=== PATIENT | female | born 1980 | race Caucasian/White ===

== ENCOUNTER 2017-05-28 13:49 | Emergency (ER) | payer BC ==
[~2017-05-28] VITALS: Ht 167.6 cm; Wt 129.7 kg
--- OUTSIDE RECORDS SUMMARY | 2017-05-28 13:51 | XMS REPORT | Summary of Care ---
Author Author [facility] Address [address] [place] [address] Phone Unavailable Care Team Providers Care Shoe Salesman Name Role Phone VENANCIO JURADO M.D. Unavailable Unavailable Functional Status Name Dates Details Functional status health issues are not documented Status: Name Dates Details Cognitive status health issues are not documented Status: Problems Name Dates Details Left shoulder pain (719.41, M25.512) Status: Active Medications Name Dates Details MethylPREDNISolone 4 MG Oral Tablet USE DIRECTED. Quantity: 21 ADRIEN Dasilva, VENANCIO * Start : 01-Feb-2017 Active Cyclobenzaprine HCl - 10 MG Oral Tablet TAKE 1 TABLET 3 TIMES DAILY NEEDED. * Quantity: 30 Refills: 0 ADRIEN Dasilva, VENANCIO * Start : 01-Feb-2017 Active Allergies and Adverse Reactions Name Dates Details No Known Drug Allergies (Allergy) Status: Active Procedures Procedure Dates Details Procedures not documented Immunization Name Dates Details Immunizations not documented Social History Name Dates Details Unknown if ever smoked Vital Signs Date Test Result Details No Known Vitals to report Results Date Description Value Details Results not documented Plan of Care Name Dates Details Planned Observations Planned Goals not documented Planned Encounters Appointment; VENANCIO JURADO M.D. On: 07-Apr-2017 10:30 Instructions Name Dates Details Instructions not documented Encounters Appointment; RUSSELL CASTANEDA M.D. Encounter Diagnosis: Problem not documented On: 16-Mar-2016 13:00 Appointment; RUSSELL CASTANEDA M.D. Encounter Diagnosis: Problem not documented On: 21-Sep-2016 15:15 Appointment; NICK HORAN RD Encounter Diagnosis: Problem not documented On: 03-Oct-2016 9:30 Appointment; VENANCIO JURADO M.D. Encounter Diagnosis: Problem not documented On: 01-Feb-2017 8:45 Appointment; VENANCIO JURADO M.D. Encounter Diagnosis: Problem not documented On: 10-Mar-2017 9:30
--- OUTSIDE RECORDS SUMMARY | 2017-05-28 13:51 | XMS REPORT ---
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
== END 2017-05-28 14:38 | disposition home or self-care (01) ==
LOC: ER 13:49
DX: S61.211A Laceration without foreign body of left index finger without damage to nail, initial encounter (principal); W26.0XXA Contact with knife, initial encounter; Y93.G3 Activity, cooking and baking; Y92.000 Kitchen of unspecified non-institutional (private) residence as the place of occurrence of the external cause
CPT/HCPCS: 99282

== ENCOUNTER 2017-10-05 00:46 | Inpatient (IN) | payer BC ==
[~2017-10-05] VITALS: Ht 167.6 cm; Wt 152.9 kg
[2017-10-05] VITALS (23 sets, daily range): BP systolic 109–138; BP diastolic 62–89
[2017-10-05] MEDS ORDERED: SODIUM CHLORIDE 0.9% 1000ML 1,000 ML IV STA ×2 (01:15→05:38)
[2017-10-05] MEDS ORDERED: ONDANSETRON HCL INJ 2 MG/ML VIAL IV STA (01:15)
[2017-10-05] MEDS ORDERED: MORPHINE SULFATE 2 MG/ML SYR IV STA (01:15)
[2017-10-05] MEDS ORDERED: PANTOPRAZOLE 40 MG 10ML VIAL IV STA (01:15)
[2017-10-05] MEDS ORDERED: DIATRIZOATE MEGL/DIATRIZOA SOD 30 ML BTL PO ONE (01:31)
[2017-10-05 01:59] LABS: BASOPHILS % 0.2 % (0.0-1.0); HEMATOCRIT 37.5 % (34.2-44.1); HEMOGLOBIN 11.9 g/dL (12.0-16.0); LYMPHOCYTES # (AUTO) 1.2 (1.0-3.2); LYMPHOCYTES % 4.6 % (18.0-39.1); MEAN CORPUSCULAR HEMOGLOBIN 25.5 pg (28-32); MEAN CORPUSCULAR HGB CONC 31.7 g/dL (31-35); MEAN CORPUSCULAR VOLUME 80.5 fL (81-99); MONOCYTES # (AUTO) 1.4 (0.2-0.8); MONOCYTES % 5.5 % (4.4-11.3); NEUTROPHILS # (AUTO) 22.2 (2.1-6.9); NEUTROPHILS % 89.1 % (38.7-80.0); PLATELET COUNT 391 x10e3/uL (140-360); RED BLOOD COUNT 4.66 x10e6/uL (3.6-5.1); RED CELL DISTRIBUTION WIDTH 14.4 % (11.7-14.4)
[2017-10-05 02:05] LABS: CLARITY,URINE HAZY (CLEAR); COLOR,URINE GREEN (YELLOW); LEUKOCYTE ESTERASE ,URINE NEGATIVE (NEGATIVE); NITRITE,URINE NEGATIVE (NEGATIVE); PROTEIN,URINE DIPSTICK 2+ (NEGATIVE)
[2017-10-05 02:06] LABS: BILIRUBIN,URINE 2+ (NEGATIVE); KETONES,URINE NEGATIVE (NEGATIVE); URINE UROBILINOGEN 0.2 mg/dL (0.2 - 1)
[2017-10-05 02:08] LABS: INR 1.44; PROTHROMBIN TIME 16.5 seconds (11.9-14.5)
[2017-10-05 02:09] LABS: PARTIAL THROMBOPLASTIN TIME 27.1 seconds (23.8-35.5)
[2017-10-05 02:15] LABS: PREGNANCY TEST, URINE NEGATIVE (NEGATIVE)
[2017-10-05 02:16] LABS: ALANINE AMINOTRANSFERASE 50 IU/L (0-55); ALBUMIN 3.4 g/dL (3.5-5.0); ALBUMIN/GLOBULIN RATIO 0.8 (0.8-2.0); ALKALINE PHOSPHATASE 87 IU/L (40-150); AMYLASE 329 U/L (25-125); ANION GAP 16.3 mmol/L (8-16); BLOOD UREA NITROGEN 11 mg/dL (7-26); BUN/CREATININE RATIO 14 (6-25); CALCIUM 8.5 mg/dL (8.4-10.2); CARBON DIOXIDE 23 mmol/L (22-29); CHLORIDE 105 mmol/L (98-107); CREATINE KINASE 89 IU/L (29-168); CREATININE, SERUM 0.78 mg/dL (0.57-1.11); EST GLOMERULAR FILTRATION RATE > 60 ML/MIN (60-); GLUCOSE 153 mg/dL (74-118); LIPASE 130 U/L (8-78); MAGNESIUM 1.8 MG/DL (1.3-2.1); POTASSIUM 3.3 mmol/L (3.5-5.1); SODIUM 141 mmol/L (136-145)
[2017-10-05 02:26] LABS: BACTERIA,URINE MODERATE /HPF; EPITHELIAL CELLS,URINE MODERATE /LPF; RBC,URINE 0-5 /HPF (0-5)
[2017-10-05 02:27] LABS: RENAL EPITHELIAL CELLS,URINE FEW; TRANSITIONAL EPI CELLS,URINE FEW; WBC,URINE (MAN) 0-5 /HPF (0-5)
--- NOTE | 2017-10-05 02:46 | Diagnostic Imaging Report ---
ABDOMEN-1VIEW (KUB) Clinical history: \S\TO EVALUATE CONTRAST USED IN [place] Technique: AP view abdomen Comparison: None Findings: Limited single portable view with hemidiaphragms, left lateral abdomen and inferior pelvis are excluded from view. A surgical drain projects over the expected GE junction. High density contrast material is seen predominantly within the colon. Additional contrast material in the left upper quadrant, unclear where this is intraluminal. Correlate with subsequent CT Impression: High density contrast material seen primarily in the colon. Additional contrast material in the left upper quadrant, unclear where this is intraluminal. Correlate with subsequent CT Signed by: Dr Alysia Rasheed MD on 10/05/2017 2:43 AM
--- NOTE | 2017-10-05 02:49 | Diagnostic Imaging Report ---
CHEST SINGLE (PORTABLE), 10/05/2017 1:15 AM Technique: CHEST SINGLE (PORTABLE) Comparison: None available. Clinical history: Abdominal pain Findings: Limited by portable technique and soft tissue attenuation. Mild left basilar opacity. Otherwise unremarkable portable appearance of the heart, mediastinum, lungs and pleural spaces. Impression: Mild left basilar opacity which may be postoperative hematoma/atelectasis related to reported hernia repair. Recommend follow-up upright PA and lateral. Signed by: Dr Alysia Rasheed MD on 10/05/2017 2:46 AM
[2017-10-05] MEDS ORDERED: PIPERACILLIN/TAZO 4.5 GM 100 ML IV STA (02:51)
[2017-10-05] MEDS ORDERED: PANTOPRAZOLE SO40 MG PO (03:22)
[2017-10-05] MEDS ORDERED: LEVOTHYROXINE100 MCG PO (03:22)
[2017-10-05 03:41] LABS: BAND NEUTROPHILS % (MANUAL) 3 %; LYMPHOCYTES % (MANUAL) 4 % (19-48); MONOCYTES % (MANUAL) 4 % (3.4-9.0); NEUTROPHILS % (MANUAL) 89 % (40-74)
[2017-10-05] MEDS ORDERED: SODIUM CHLORIDE 0.9% 50ML 50 ML ONE (03:41)
[2017-10-05] MEDS ORDERED: IOPAMIDOL 370 MG/ML 200 ML INFUS..BTL INJ ONE (03:41)
[2017-10-05 03:42] LABS: PLATELET ESTIMATE SLIGHTLY INCREASED; PLATELET MORPHOLOGY COMMENT NORMAL; RBC MORPHOLOGY COMMENT NORMAL
[2017-10-05] MEDS: METRONIDAZOLE 500MG/NS 100ML 100 ML IV SCH ×4 (04:15→17:58)
[2017-10-05] MEDS ORDERED: KCL 20MEQ/.9 SOD CHL 1,000 ML IV ONE (04:15)
[2017-10-05] MEDS ORDERED: MORPHINE SULFATE 2 MG/ML SYR IV PRN ×2 (04:45→13:45)
[2017-10-05] MEDS: ONDANSETRON HCL INJ 2 MG/ML VIAL IV PRN ×3 (05:08→17:29)
--- NOTE | 2017-10-05 05:23 | Diagnostic Imaging Report ---
EXAM: CT ABDOMEN/PELVIS W DATE: 10/05/2017 1:15 AM INDICATION: \S\SURGERY IN [place] 24HRS AGO, ABD PAIN, ? PERFORATED PER PT \S\[id number] \S\[id number] COMPARISON: None TECHNIQUE: The abdomen and pelvis were scanned using a multidetector helical scanner. Coronal and sagittal reformations were obtained. Routine protocol performed. Diluted Gastrografin was administered orally. IV Contrast: 100 ml Isovue 300/370 FINDINGS: Study is mildly degraded by photon starvation related to body habitus. LOWER THORAX: Trace left pleural effusion and basilar atelectasis. LIVER/BILIARY: No masses. No ductal dilatation. GALLBLADDER: Surgically absent SPLEEN: Unremarkable PANCREAS: Unremarkable ADRENALS: No nodules KIDNEYS: Symmetric perfusion. No enhancing masses. No hydronephrosis. GI TRACT: Postsurgical changes status post partial gastric resection and gastrojejunostomy. Residual hiatal hernia or distended gastric pouch within the lower thorax. There is extravasation of administered oral contrast through the gastrojejunostomy surgical anastomotic site (image 30. High density contrast in the colon was previously administered as seen on recent radiograph before the CT. VESSELS: Unremarkable PERITONEUM/RETROPERITONEUM: Mild free air, fluid and extravasated oral contrast. More focal fluid is seen along the GJ anastomosis on image 26, but no wall enhancement. The right lower quadrant surgical drainage catheter courses along the anastomotic leak and terminates in the medial left upper quadrant. LYMPH NODES: No lymphadenopathy REPRODUCTIVE ORGANS/BLADDER: Unremarkable SOFT TISSUES: Small ventral hernia appears to contain a loop of nondistended bowel versus fluid. Soft tissue stranding in BONES: No suspicious bone lesions. IMPRESSION: Postsurgical changes status post recent partial gastric resection with gastrojejunostomy. Anastomotic leak is present at the gastrojejunostomy site with extravasated oral contrast. No drainable collection. Discussed with Physician: SHASHI NOVAK MD at about 5:00 AM on 10/05/2017. Signed by: Dr Alysia Rasheed MD on 10/05/2017 5:20 AM
--- NOTE | 2017-10-05 05:25 | Diagnostic Imaging Report ---
CHEST 2 VIEWS, Technique: CHEST 2 VIEWS Comparison: 10/05/2017 Clinical history: Left basilar opacity seen on portable radiograph DISCUSSION: Normal cardiomediastinal silhouette. Residual hiatal hernia or dilated gastric pouch is noted. Small left effusion with left basilar linear opacity. IMPRESSION: Small left effusion with left basilar atelectasis. Signed by: Dr Alysia Rasheed MD on 10/05/2017 5:22 AM
[2017-10-05] MEDS: VANCOMYCIN 1GM/NS 250 ML 250 ML IV SCH ×3 (05:47→20:37)
[2017-10-05 06:01] LABS: FIBRINOGEN MAIN LAB 616 mg/dL (204-462)
[2017-10-05] MEDS ORDERED: BUPIVACAINE 0.25%/EPI 30ML SDV INJ ONE (06:36)
[2017-10-05] MEDS ORDERED: HEPARIN SOD/SOD CHLORIDE 1,000 ML ONE (06:58)
[2017-10-05 07:38] LABS: CREATINE KINASE 117 IU/L (29-168)
[2017-10-05] MEDS: PIPER-TAZ 3.375 GM 50 ML IV SCH ×3 (09:00→17:48)
[2017-10-05] MEDS: PANTOPRAZOLE 40 MG 10ML VIAL IV SCH ×2 (09:00→17:48)
--- NOTE | 2017-10-05 09:49 | Consultation ---
DATE OF CONSULTATION: October 05, 2017 CHIEF COMPLAINT: Abdominal pain. HISTORY OF PRESENT ILLNESS: This patient is a 36-year-old female who is 2 days status post revision of gastric bypass surgery in [place] complaining of abdominal pain, subjective fever with nausea. The patient was diagnosed as having an anastomotic leak postoperatively in [place], but decided to come home to the [facility]. PAST MEDICAL HISTORY: Significant for morbid obesity, GERD. SURGICAL HISTORY: Positive for sleeve gastrectomy 5 years ago and recent revision of gastric bypass surgery. ALLERGIES: THE PATIENT IS ALLERGIC TO LATEX. SOCIAL HISTORY: No history of smoking or alcohol abuse. REVIEW OF SYSTEMS: No chest pain or shortness of breath. PHYSICAL EXAMINATION VITAL SIGNS: Stable. The patient is tachycardic at 105, blood pressure 110/70. GENERAL: She is awake, alert and in mild to moderate discomfort. HEENT: Sclerae are nonicteric. NECK: Supple. LUNGS: Clear. HEART: Regular rate and rhythm. ABDOMEN: Soft without any tenderness or rebound in the epigastric region. KANIKA drains in the right flank is bilious. EXTREMITIES: Without cyanosis or edema. The patient's white cell count is 25,000, hemoglobin 12. INR 1.4. CT scan of the abdomen shows an anastomotic leak. ASSESSMENT: Anastomotic leak, post revision of gastric bypass surgery. PLAN: Diagnostic laparoscopy and possible open repair of leaks. Possible gastrostomy and bowel resection. Job#: [id number] CAT
[2017-10-05] MEDS ORDERED: ONDANSETRON HCL INJ 2 MG/ML VIAL ONE (11:20)
[2017-10-05] MEDS ORDERED: PROMETHAZINE HCL (IM) 25 MG/ML VIAL ONE (11:36)
[2017-10-05] MEDS: LACTATED RINGER'S 1,000 ML IV SCH ×2 (14:05→17:30)
[2017-10-05] MEDS: LEVOTHYROXINE SODIUM 100 MCG/VIAL IV SCH (14:37)
[2017-10-05] MEDS ORDERED: CHLORASEPTIC SPRAY 177 ML BTL MM PRN (15:45)
[2017-10-05 17:11] LABS: BASOPHILS # (AUTO) 0.1 (0.0-0.1); BASOPHILS % 0.3 % (0.0-1.0); HEMATOCRIT 31.4 % (34.2-44.1); LYMPHOCYTES % 4.6 % (18.0-39.1); MEAN CORPUSCULAR HEMOGLOBIN 25.8 pg (28-32); MEAN CORPUSCULAR HGB CONC 31.8 g/dL (31-35); MEAN CORPUSCULAR VOLUME 80.9 fL (81-99); MONOCYTES # (AUTO) 0.8 (0.2-0.8); MONOCYTES % 3.9 % (4.4-11.3); NEUTROPHILS # (AUTO) 19.3 (2.1-6.9); NEUTROPHILS % 90.6 % (38.7-80.0); PLATELET COUNT 306 x10e3/uL (140-360); RED BLOOD COUNT 3.88 x10e6/uL (3.6-5.1); RED CELL DISTRIBUTION WIDTH 14.6 % (11.7-14.4)
[2017-10-05 17:32] LABS: ALANINE AMINOTRANSFERASE 33 IU/L (0-55); ALBUMIN 2.1 g/dL (3.5-5.0); ALBUMIN/GLOBULIN RATIO 0.8 (0.8-2.0); ALKALINE PHOSPHATASE 58 IU/L (40-150); ANION GAP 12.6 mmol/L (8-16); BLOOD UREA NITROGEN 8 mg/dL (7-26); BUN/CREATININE RATIO 14 (6-25); CARBON DIOXIDE 19 mmol/L (22-29); CHLORIDE 111 mmol/L (98-107); CREATINE KINASE 52 IU/L (29-168); CREATININE, SERUM 0.57 mg/dL (0.57-1.11); EST GLOMERULAR FILTRATION RATE > 60 ML/MIN (60-); GLUCOSE 139 mg/dL (74-118); POTASSIUM 3.6 mmol/L (3.5-5.1); SODIUM 139 mmol/L (136-145)
--- NOTE | 2017-10-05 17:41 | History and Physical ---
CHIEF COMPLAINT: Abdominal pain. HISTORY OF PRESENT ILLNESS: Ms. Ayoub is a 36-year-old female. She had a gastric bypass surgery in [place] 2 days ago, and post surgery she started having anastomotic leakage, abdominal pain so she was told by the surgeon over there. She drove here back [place] get the [place] Patient works as an RN at [employer]. She was seen in the emergency room. Her white cell count was 25,[address] Cruz was consulted. Patient was taken to the OR and the anastomotic leak was resutured. She is doing well. She is denying any complaints of nausea, vomiting, chest pain now. PHYSICAL EXAMINATION VITAL SIGNS: Temperature 98, pulse of 86, blood pressure 115/66, respiratory rate of 18, O2 sat 98%. CHEST: Clear to auscultation bilaterally. No wheezing. HEART: S1/S2 audible. ABDOMEN: Patient has 2 drains and the incision is dressed. EXTREMITIES: No clubbing, cyanosis or edema. NEUROLOGICALLY: Awake and alert. No focal neurologic deficit. REVIEW OF SYSTEMS: Negative except as in HPI. FAMILY AND SOCIAL HISTORY: She does not smoke, does not drink. Lives with her . She works as an RN. LABS: White count of 24,000, hemoglobin 11.9, platelets 391. Chemistry: Sodium 141, potassium 3.3, anion gap of 16.3, bicarb of 23. Troponin has been negative. Abdominal pelvis CT was done which showed postsurgical changes. Anastomotic leak is present at gastrojejunostomy site. ASSESSMENT: Ms. Ayoub is a 36-year-old female. She presented with a surgical complication of anastomotic leak from the gastrojejunostomy that was done for gastric bypass surgery. PLAN 1. A surgery consult has been called. Dr. Cruz has already operated on the patient. Currently patient is doing well. Abdominal pain is much better. Patient will be continued on IV hydration. 2. IV Zofran and Flagyl have been started. 3. Will follow the patient closely in the ICU. Job#: [id number] EV
[2017-10-05] MEDS ORDERED: ROCURONIUM BROMIDE 10 MG/ML 5ML VIAL ONE (17:49)
[2017-10-05] MEDS ORDERED: DESFLURANE 240 ML BTL INH ONE (17:49)
[2017-10-05] MEDS ORDERED: LIDOCAINE HCL 2% LOCAL INJ 5 ML SDV VIAL INJ ONE (17:49)
[2017-10-05] MEDS ORDERED: PROPOFOL IV EMULSION 10 MG/ML 20 ML VIAL ONE (17:49)
[2017-10-05] MEDS ORDERED: DEXAMETHASONE SOD PHOS INJ 4 MG/ML VIAL ONE (17:49)
[2017-10-05] MEDS ORDERED: KETAMINE HCL INJ 50 MG/ML 10 ML VIAL ONE (18:00)
[2017-10-05] MEDS ORDERED: FENTANYL CITRATE/PF 100MCG/2 ML INJ ONE (18:00)
[2017-10-05] MEDS ORDERED: MIDAZOLAM HCL 2 MG/2 ML VIAL ONE (18:00)
--- NOTE | 2017-10-05 18:04 | Operative Report ---
DATE OF PROCEDURE: October 05, 2017 PREOPERATIVE DIAGNOSIS: Anastomotic leak. POSTOPERATIVE DIAGNOSIS: Anastomotic leak. OPERATIVE PROCEDURES: 1. Exploratory laparotomy. 2. Repair of breakdown of gastrojejunostomy anastomosis. ANESTHESIA: General, Dr. Scott. INDICATIONS: A 36-year-old female who is 2 days status post revision of bariatric surgery in [place] with a known anastomotic leak post procedure in [place]. Patient, however, decided to come home and presented to the emergency room with severe abdominal pain, and CT scan showed anastomotic leakage. A KANIKA drain placed during the initial surgery also showed bilious material. DESCRIPTION OF PROCEDURE: Patient was brought to the OR, intubated. Abdomen was prepped with alcohol and draped in sterile fashion. A diagnostic laparoscopy was initiated first with a left subcostal margin port site inserted and insufflation then begun. Laparoscopic examination revealed bilious fluid in the peritoneal cavity. The adhesions were taken down with blunt dissection, and the gastrojejunostomy anastomosis was noted to be completely disrupted with leakage of bilious material. At this point, the upper midline incision was made from xiphoid towards the umbilicus, going through the midline linea alba fascia. The peritoneal cavity was entered and the anatomy delineated with blunt and sharp dissection. The self-retaining retractors were inserted, exposing the upper abdominal operative field. The anastomotic leakage site was again exposed, and the anterior half of the loop gastrojejunostomy was noted to be disrupted with a third of the circumference of anastomosis posteriorly intact. At this point, the bowel was then followed distally with no evidence of obstruction. It seemed like the patient had divisions of the duodenum distal to the pylorus, and then a duodenal loop jejunostomy was carried out approximately 80 cm distal to the ligament of Treitz. At this point, decision was made to take down the anastomosis completely using a HERLINDA stapler. The duodenotomy portion of the anastomosis was closed with a TL-60 stapler. The staple line was reinforced with interrupted 3-0 silk stitch to invert the staple line. The loop jejunostomy was then divided at the point of the anastomosis using a HERLINDA stapler. We then decided to perform a Eleanor-en-Y reconstruction in a retrocolic fashion opening a 4 cm aperture in the transverse mesocolon and the efferent loops of jejunum. This part was brought adjacent to the anterior stomach, and an EEA 25-Mozambican anastomosis was carried out through the proximal staple line of the jejunum. After the anastomosis was complete, it was reinforced with Lembert stitches of 3-0 silk circumferentially. The intestinal open end was closed with a HERLINDA stapler. The anastomosis between the biliary pancreatic limb and the efferent loops of the jejunum was then carried out with a HERLINDA stapler as mentioned, approximately 80 cm distal to the proximal anastomosis with stomach. The mesenteric defect was also closed with interrupted 3-0 silk stitch. The anterior enterostomy was carried out using a HERLINDA stapler and TL-60 instrument. Operative field was then irrigated with copious saline solution. The bowel was run distally toward the ileocecal valve without any further obstruction. Six liters of saline were used to irrigate the peritoneal cavity until the irrigant fluid returning clear. At this point, the omentum was placed on top of the reconstructed bowel, and a 19-Mozambican Farhan drain was placed in the Adams pouch and taken out through the separate stab wound in the right lower quadrant. Midline fascia was then closed with running 0 PDS and interrupted 0 Vicryl. Subcutaneous tissue was separately drained with a 15-Mozambican Farhan drain, and skin was closed with armand. The patient was then extubated and transported in a guarded condition to the recovery room. Estimated blood loss 30 mL. Job#: [id number] SALO
[2017-10-05] MEDS: SODIUM CHLORIDE 0.9% 1000ML 1,000 ML IV SCH (19:00)
[2017-10-05] MEDS: MORPHINE SULFATE 2 MG/ML SYR IV PRN (20:38)
[2017-10-06] VITALS (36 sets, daily range): BP systolic 89–141; BP diastolic 42–84
[2017-10-06] MEDS: PIPER-TAZ 3.375 GM 50 ML IV SCH ×4 (01:03→18:14)
[2017-10-06] MEDS: MORPHINE SULFATE 2 MG/ML SYR IV PRN ×6 (01:14→18:15)
[2017-10-06] MEDS: LACTATED RINGER'S 1,000 ML IV SCH ×3 (02:30→10:16)
[2017-10-06 04:46] LABS: BASOPHILS % 0.2 % (0.0-1.0); EOSINOPHILS # (AUTO) 0.1 (0.0-0.4); EOSINOPHILS % 0.5 % (0.0-6.0); HEMATOCRIT 28.1 % (34.2-44.1); HEMOGLOBIN 8.9 g/dL (12.0-16.0); LYMPHOCYTES # (AUTO) 1.5 (1.0-3.2); MEAN CORPUSCULAR HEMOGLOBIN 25.5 pg (28-32); MEAN CORPUSCULAR HGB CONC 31.7 g/dL (31-35); MEAN CORPUSCULAR VOLUME 80.5 fL (81-99); MONOCYTES # (AUTO) 0.8 (0.2-0.8); NEUTROPHILS # (AUTO) 13.7 (2.1-6.9); NEUTROPHILS % 84.9 % (38.7-80.0); PLATELET COUNT 248 x10e3/uL (140-360); RED BLOOD COUNT 3.49 x10e6/uL (3.6-5.1); RED CELL DISTRIBUTION WIDTH 14.6 % (11.7-14.4)
[2017-10-06 05:09] LABS: ALANINE AMINOTRANSFERASE 25 IU/L (0-55); ALBUMIN 1.9 g/dL (3.5-5.0); ALBUMIN/GLOBULIN RATIO 0.7 (0.8-2.0); ALKALINE PHOSPHATASE 55 IU/L (40-150); AMYLASE 71 U/L (25-125); ANION GAP 8.3 mmol/L (8-16); BLOOD UREA NITROGEN 7 mg/dL (7-26); BUN/CREATININE RATIO 13 (6-25); CALCIUM 7.2 mg/dL (8.4-10.2); CARBON DIOXIDE 23 mmol/L (22-29); CHLORIDE 109 mmol/L (98-107); CREATININE, SERUM 0.54 mg/dL (0.57-1.11); EST GLOMERULAR FILTRATION RATE > 60 ML/MIN (60-); GLUCOSE 102 mg/dL (74-118); LIPASE 16 U/L (8-78); POTASSIUM 3.3 mmol/L (3.5-5.1); SODIUM 137 mmol/L (136-145)
[2017-10-06] MEDS: METRONIDAZOLE 500MG/NS 100ML 100 ML IV SCH ×4 (05:10→18:55)
[2017-10-06] MEDS: LEVOTHYROXINE SODIUM 100 MCG/VIAL IV SCH (08:38)
[2017-10-06] MEDS: ONDANSETRON HCL INJ 2 MG/ML VIAL IV PRN ×2 (08:38→12:37)
[2017-10-06] MEDS: PANTOPRAZOLE 40 MG 10ML VIAL IV SCH ×2 (08:38→23:20)
[2017-10-06] MEDS: SODIUM CHLORIDE 0.9% IRRIG 3,000 ML BAG IR SCH ×5 (08:39→22:00)
[2017-10-06] MEDS ORDERED: POTASSIUM CHLORIDE 20MEQ/100ML 200 ML IV ONE (09:00)
[2017-10-06] MEDS: VANCOMYCIN 1GM/NS 250 ML 250 ML IV SCH ×2 (09:08→23:00)
[2017-10-06] MEDS ORDERED: MORPHINE SULFATE INJ 4 MG/ML INJ IV PRN (09:45)
[2017-10-06] MEDS: ACETAMINOPHEN 1000 MG/100 ML IV PRN (22:45)
[2017-10-07] VITALS (9 sets, daily range): BP systolic 109–119; BP diastolic 65–80
[2017-10-07] MEDS: METRONIDAZOLE 500MG/NS 100ML 100 ML IV SCH ×5 (00:15→23:21)
[2017-10-07] MEDS: PIPER-TAZ 3.375 GM 50 ML IV SCH ×6 (00:15→23:21)
[2017-10-07] MEDS: SODIUM CHLORIDE 0.9% IRRIG 3,000 ML BAG IR SCH ×2 (01:02→01:03)
[2017-10-07] MEDS: MORPHINE SULFATE 2 MG/ML SYR IV PRN ×2 (04:10→19:37)
[2017-10-07 05:16] LABS: BASOPHILS % 0.3 % (0.0-1.0); EOSINOPHILS # (AUTO) 0.3 (0.0-0.4); HEMATOCRIT 25.3 % (34.2-44.1); HEMOGLOBIN 7.8 g/dL (12.0-16.0); LYMPHOCYTES # (AUTO) 1.2 (1.0-3.2); LYMPHOCYTES % 7.7 % (18.0-39.1); MEAN CORPUSCULAR HEMOGLOBIN 25.2 pg (28-32); MEAN CORPUSCULAR HGB CONC 30.8 g/dL (31-35); MEAN CORPUSCULAR VOLUME 81.9 fL (81-99); MONOCYTES # (AUTO) 0.8 (0.2-0.8); MONOCYTES % 5.2 % (4.4-11.3); NEUTROPHILS # (AUTO) 13.3 (2.1-6.9); NEUTROPHILS % 84.1 % (38.7-80.0); PLATELET COUNT 231 x10e3/uL (140-360); RED BLOOD COUNT 3.09 x10e6/uL (3.6-5.1); RED CELL DISTRIBUTION WIDTH 14.6 % (11.7-14.4)
[2017-10-07 05:28] LABS: BLOOD UREA NITROGEN 6 mg/dL (7-26); BUN/CREATININE RATIO 12 (6-25); CALCIUM 7.4 mg/dL (8.4-10.2); CARBON DIOXIDE 22 mmol/L (22-29); CHLORIDE 108 mmol/L (98-107); CREATININE, SERUM 0.51 mg/dL (0.57-1.11); EST GLOMERULAR FILTRATION RATE > 60 ML/MIN (60-); GLUCOSE 71 mg/dL (74-118); SODIUM 139 mmol/L (136-145)
[2017-10-07] MEDS ORDERED: POTASSIUM CHLORIDE 20MEQ/100ML 200 ML IV ONE (08:00)
[2017-10-07] MEDS: PANTOPRAZOLE 40 MG 10ML VIAL IV SCH ×2 (08:17→21:13)
[2017-10-07] MEDS: LEVOTHYROXINE SODIUM 100 MCG/VIAL IV SCH (08:17)
[2017-10-07] MEDS: VANCOMYCIN 1GM/NS 250 ML 250 ML IV SCH (10:02)
[2017-10-07] MEDS: LACTATED RINGER'S 1,000 ML IV SCH ×2 (10:02→22:35)
[2017-10-07] MEDS: ACETAMINOPHEN 1000 MG/100 ML IV PRN (13:12)
[2017-10-07] MEDS ORDERED: CEFEPIME HCL 2 GM VIAL IV SCH (14:00)
[2017-10-07] MEDS ORDERED: VANCOMYCIN 1GM/NS 250 ML 500 ML IV SCH (14:00)
--- NOTE | 2017-10-07 17:14 | Consultation ---
DATE OF CONSULTATION: REASON FOR CONSULTATION: Abdominal surgical wound infection. This patient who is a 36-year-old white female, history of morbidly obese patient. Apparently, she went to [place] a week ago, 5 days ago to have bypass surgery. She had gastric bypass. Postoperatively, she had 2 drains, which she had in the abdomen and draining a lot of blood type of material. She was noted to have a lot of bile type of material. Her surgeon in [place] told her that she needs another surgery plus TPN plus stay in the hospital for 2 weeks. She elected to leave the hospital over there and come over here knowing there is no established relationship with any of the physicians in this hospital. The patient came into the emergency room where she was evaluated. White count of 25,000. She was admitted. Dr. Cruz saw the patient. The patient was taken to the OR. She underwent exploratory laparotomy. She had a breakdown of the gastrojejunal anastomosis. The patient is currently in bed. She has 2 drains in, but the old drain, there is pus coming from it. PAST MEDICAL HISTORY: Obesity. PAST SURGICAL HISTORY: As above. ALLERGIES: NKA. SOCIAL HISTORY: No smoking, drug abuse or alcohol abuse. FAMILY HISTORY: Otherwise unremarkable. PHYSICAL EXAMINATION GENERAL: She is currently alert and oriented. Does not seem to be in acute distress. VITALS: Stable. Afebrile. HEENT: She is not icteric. NECK: Supple. ABDOMEN: Soft. There is an old wound from previous surgery that is draining pus. There are 2 drains coming out and they both have reddish clear material. IMPRESSION: Intra-abdominal infection, surgical wound infection present on admission. Patient is a morbidly obese patient. Discussed with the patient. Will put her on cefepime, Flagyl and vancomycin. Will obtain wound cultures. Will adjust for her kidney function. Recheck CBC. Recheck Chem panel. Will follow. Job#: [id number] CAT
[2017-10-07] MEDS: VANCOMYCIN HCL 2 GM in SODIUM CHLORIDE 0.9% 500ML 500 ML IV SCH (21:14)
[2017-10-08] VITALS (7 sets, daily range): BP systolic 121–132; BP diastolic 66–87
[2017-10-08] MEDS: MORPHINE SULFATE 2 MG/ML SYR IV PRN (01:22)
[2017-10-08] MEDS: PIPER-TAZ 3.375 GM 50 ML IV SCH ×4 (06:10→23:50)
[2017-10-08] MEDS: METRONIDAZOLE 500MG/NS 100ML 100 ML IV SCH ×3 (06:10→18:35)
[2017-10-08 08:58] LABS: BASOPHILS # (AUTO) 0.1 (0.0-0.1); BASOPHILS % 0.3 % (0.0-1.0); EOSINOPHILS # (AUTO) 0.3 (0.0-0.4); EOSINOPHILS % 1.4 % (0.0-6.0); HEMATOCRIT 27.1 % (34.2-44.1); HEMOGLOBIN 8.6 g/dL (12.0-16.0); LYMPHOCYTES # (AUTO) 1.4 (1.0-3.2); MEAN CORPUSCULAR HEMOGLOBIN 25.7 pg (28-32); MEAN CORPUSCULAR HGB CONC 31.7 g/dL (31-35); MEAN CORPUSCULAR VOLUME 80.9 fL (81-99); MONOCYTES # (AUTO) 0.9 (0.2-0.8); NEUTROPHILS % 84.6 % (38.7-80.0); PLATELET COUNT 291 x10e3/uL (140-360); RED BLOOD COUNT 3.35 x10e6/uL (3.6-5.1); RED CELL DISTRIBUTION WIDTH 14.6 % (11.7-14.4)
[2017-10-08 09:10] LABS: ANION GAP 15.3 mmol/L (8-16); BLOOD UREA NITROGEN < 5 mg/dL (7-26); CALCIUM 7.8 mg/dL (8.4-10.2); CARBON DIOXIDE 16 mmol/L (22-29); CHLORIDE 108 mmol/L (98-107); CREATININE, SERUM 0.54 mg/dL (0.57-1.11); EST GLOMERULAR FILTRATION RATE > 60 ML/MIN (60-); POTASSIUM 3.3 mmol/L (3.5-5.1); SODIUM 136 mmol/L (136-145)
[2017-10-08 09:14] LABS: BUN/CREATININE RATIO 9 (6-25)
[2017-10-08 09:15] LABS: GLUCOSE 57 mg/dL (74-118)
[2017-10-08] MEDS ORDERED: DEXTROSE 50% SYRINGE 50 ML IV ONE (09:18)
[2017-10-08] MEDS ORDERED: DEXTROSE 50% SYRINGE 50 ML IV PRN (09:45)
[2017-10-08] MEDS: PANTOPRAZOLE 40 MG 10ML VIAL IV SCH ×2 (10:01→20:40)
[2017-10-08] MEDS: VANCOMYCIN HCL 2 GM in SODIUM CHLORIDE 0.9% 500ML 500 ML IV SCH ×2 (10:01→22:15)
[2017-10-08] MEDS: DEXTROSE 5%/0.9% SOD CHL 1,000 ML IV SCH ×2 (10:17→23:20)
[2017-10-08] MEDS: LEVOTHYROXINE SODIUM 100 MCG/VIAL IV SCH (10:17)
[2017-10-08] MEDS ORDERED: POTASSIUM CHLORIDE 20MEQ/100ML 200 ML IV ONE (13:45)
[2017-10-08] MEDS: ACETAMINOPHEN 1000 MG/100 ML IV PRN ×2 (14:21→20:40)
[2017-10-09] VITALS (7 sets, daily range): BP systolic 109–137; BP diastolic 61–83
[2017-10-09] MEDS: METRONIDAZOLE 500MG/NS 100ML 100 ML IV SCH ×5 (00:45→23:39)
[2017-10-09] MEDS: ONDANSETRON HCL INJ 2 MG/ML VIAL IV PRN ×2 (01:50→12:17)
[2017-10-09] MEDS: MORPHINE SULFATE 2 MG/ML SYR IV PRN ×2 (01:50→12:17)
[2017-10-09 04:54] LABS: BASOPHILS % 0.3 % (0.0-1.0); EOSINOPHILS # (AUTO) 0.4 (0.0-0.4); HEMATOCRIT 25.6 % (34.2-44.1); HEMOGLOBIN 8.1 g/dL (12.0-16.0); LYMPHOCYTES # (AUTO) 1.4 (1.0-3.2); LYMPHOCYTES % 10.9 % (18.0-39.1); MEAN CORPUSCULAR HEMOGLOBIN 25.6 pg (28-32); MEAN CORPUSCULAR HGB CONC 31.6 g/dL (31-35); MONOCYTES # (AUTO) 1.1 (0.2-0.8); MONOCYTES % 8.6 % (4.4-11.3); NEUTROPHILS # (AUTO) 9.9 (2.1-6.9); NEUTROPHILS % 75.7 % (38.7-80.0); PLATELET COUNT 262 x10e3/uL (140-360); RED BLOOD COUNT 3.16 x10e6/uL (3.6-5.1); RED CELL DISTRIBUTION WIDTH 14.4 % (11.7-14.4)
[2017-10-09] MEDS: PIPER-TAZ 3.375 GM 50 ML IV SCH ×4 (05:30→23:39)
[2017-10-09 08:05] LABS: ANION GAP 13.4 mmol/L (8-16); BLOOD UREA NITROGEN < 5 mg/dL (7-26); CALCIUM 7.4 mg/dL (8.4-10.2); CARBON DIOXIDE 19 mmol/L (22-29); CHLORIDE 107 mmol/L (98-107); EST GLOMERULAR FILTRATION RATE > 60 ML/MIN (60-); GLUCOSE 93 mg/dL (74-118); POTASSIUM 3.4 mmol/L (3.5-5.1); SODIUM 136 mmol/L (136-145)
[2017-10-09 08:06] LABS: BUN/CREATININE RATIO 10 (6-25)
[2017-10-09] MEDS: PANTOPRAZOLE 40 MG 10ML VIAL IV SCH ×2 (09:40→20:14)
[2017-10-09] MEDS ORDERED: DAPTOMYCIN 500 MG in SODIUM CHLORIDE 0.9% 100 ML IV SCH (10:30)
[2017-10-09] MEDS: DEXTROSE 5%/0.9% SOD CHL 1,000 ML IV SCH (10:56)
[2017-10-09] MEDS: ACETAMINOPHEN 1000 MG/100 ML IV PRN ×2 (10:56→20:00)
[2017-10-09] MEDS: DAPTOMYCIN 500 MG in SODIUM CHLORIDE 0.9% 100 ML IV SCH (11:17)
[2017-10-09] MEDS: LEVOTHYROXINE SODIUM 100 MCG/VIAL IV SCH (11:18)
[2017-10-09] MEDS: FLUCONAZOLE 400MG/200ML BAG 200 ML IV SCH (11:19)
[2017-10-09] MEDS ORDERED: POTASSIUM CHLORIDE 20MEQ/100ML 100 ML IV ONE ×2 (14:00→16:00)
[2017-10-10] VITALS: BP 124/80
[2017-10-10 01:11] VITALS: BP 131/85
[2017-10-10 04:00] VITALS: BP 144/82
[2017-10-10 04:35] LABS: BASOPHILS # (AUTO) 0.1 (0.0-0.1); BASOPHILS % 0.3 % (0.0-1.0); EOSINOPHILS # (AUTO) 0.2 (0.0-0.4); EOSINOPHILS % 1.5 % (0.0-6.0); HEMATOCRIT 26.5 % (34.2-44.1); HEMOGLOBIN 8.7 g/dL (12.0-16.0); LYMPHOCYTES # (AUTO) 1.3 (1.0-3.2); LYMPHOCYTES % 8.6 % (18.0-39.1); MEAN CORPUSCULAR HEMOGLOBIN 25.4 pg (28-32); MEAN CORPUSCULAR HGB CONC 32.8 g/dL (31-35); MEAN CORPUSCULAR VOLUME 77.5 fL (81-99); MONOCYTES # (AUTO) 1.3 (0.2-0.8); MONOCYTES % 8.6 % (4.4-11.3); NEUTROPHILS # (AUTO) 11.8 (2.1-6.9); NEUTROPHILS % 78.5 % (38.7-80.0); PLATELET COUNT 302 x10e3/uL (140-360); RED BLOOD COUNT 3.42 x10e6/uL (3.6-5.1); RED CELL DISTRIBUTION WIDTH 14.3 % (11.7-14.4)
[2017-10-10] MEDS: ACETAMINOPHEN 1000 MG/100 ML IV PRN ×2 (04:54→15:04)
[2017-10-10 04:56] LABS: ANION GAP 14.9 mmol/L (8-16); CALCIUM 7.4 mg/dL (8.4-10.2); CARBON DIOXIDE 19 mmol/L (22-29); CHLORIDE 105 mmol/L (98-107); CREATININE, SERUM 0.46 mg/dL (0.57-1.11); EST GLOMERULAR FILTRATION RATE > 60 ML/MIN (60-); GLUCOSE 96 mg/dL (74-118); SODIUM 136 mmol/L (136-145)
[2017-10-10] MEDS: METRONIDAZOLE 500MG/NS 100ML 100 ML IV SCH ×4 (05:02→23:49)
[2017-10-10 05:05] LABS: BLOOD UREA NITROGEN < 2 mg/dL (7-26); BUN/CREATININE RATIO 4 (6-25)
[2017-10-10 05:06] LABS: POTASSIUM 2.9 mmol/L (3.5-5.1)
[2017-10-10] MEDS: PIPER-TAZ 3.375 GM 50 ML IV SCH ×3 (05:18→18:06)
[2017-10-10 06:02] LABS: EOSINOPHILS % (MANUAL) 1 % (0-7); LYMPHOCYTES % (MANUAL) 13 % (19-48); MONOCYTES % (MANUAL) 5 % (3.4-9.0); NEUTROPHILS % (MANUAL) 81 % (40-74)
[2017-10-10 06:03] LABS: ANISOCYTOSIS SLIGHT; HYPOCHROMASIA SLIGHT; PLATELET ESTIMATE ADEQUATE; PLATELET MORPHOLOGY COMMENT NORMAL; RBC MORPHOLOGY COMMENT NORMAL
[2017-10-10] MEDS ORDERED: POTASSIUM CHLORIDE 10MEQ/100ML 100 ML IV ONE ×4 (06:30→08:00)
[2017-10-10 08:00] VITALS: BP_SYST 133; BP_SYST 155; BP_DIAS 84; BP_DIAS 93
[2017-10-10] MEDS: PANTOPRAZOLE 40 MG 10ML VIAL IV SCH ×2 (08:17→21:39)
[2017-10-10] MEDS: LEVOTHYROXINE SODIUM 100 MCG/VIAL IV SCH (09:40)
[2017-10-10] MEDS: FLUCONAZOLE 400MG/200ML BAG 200 ML IV SCH (11:15)
[2017-10-10] MEDS ORDERED: SODIUM CHLORIDE 0.9% 250ML 250 ML ONE (11:21)
[2017-10-10] MEDS: DAPTOMYCIN 500 MG in SODIUM CHLORIDE 0.9% 100 ML IV SCH (12:00)
[2017-10-10 16:00] VITALS: BP 124/76
[2017-10-10] MEDS ORDERED: POTASSIUM CHLORIDE 20MEQ/100ML 100 ML IV ONE (16:00)
[2017-10-10] MEDS ORDERED: POTASSIUM CHLORIDE 20MEQ/100ML 200 ML IV ONE (18:00)
[2017-10-10 20:00] VITALS: BP_SYST 126; BP_SYST 131; BP_DIAS 78; BP_DIAS 88
[2017-10-11] VITALS (7 sets, daily range): BP systolic 118–141; BP diastolic 62–91
[2017-10-11] MEDS: PIPER-TAZ 3.375 GM 50 ML IV SCH ×4 (00:30→18:03)
[2017-10-11] MEDS: METRONIDAZOLE 500MG/NS 100ML 100 ML IV SCH ×4 (01:00→18:52)
[2017-10-11 05:06] LABS: BASOPHILS # (AUTO) 0.1 (0.0-0.1); BASOPHILS % 0.5 % (0.0-1.0); EOSINOPHILS # (AUTO) 0.4 (0.0-0.4); HEMATOCRIT 27.1 % (34.2-44.1); HEMOGLOBIN 8.6 g/dL (12.0-16.0); LYMPHOCYTES # (AUTO) 2.2 (1.0-3.2); LYMPHOCYTES % 12.4 % (18.0-39.1); MEAN CORPUSCULAR HEMOGLOBIN 25.1 pg (28-32); MEAN CORPUSCULAR HGB CONC 31.7 g/dL (31-35); MONOCYTES # (AUTO) 1.4 (0.2-0.8); MONOCYTES % 7.8 % (4.4-11.3); NEUTROPHILS # (AUTO) 12.9 (2.1-6.9); PLATELET COUNT 379 x10e3/uL (140-360); RED BLOOD COUNT 3.43 x10e6/uL (3.6-5.1); RED CELL DISTRIBUTION WIDTH 14.6 % (11.7-14.4)
[2017-10-11 05:35] LABS: ANION GAP 17.5 mmol/L (8-16); CARBON DIOXIDE 19 mmol/L (22-29); CHLORIDE 105 mmol/L (98-107); CREATININE, SERUM 0.51 mg/dL (0.57-1.11); EST GLOMERULAR FILTRATION RATE > 60 ML/MIN (60-); GLUCOSE 66 mg/dL (74-118); POTASSIUM 3.5 mmol/L (3.5-5.1); SODIUM 138 mmol/L (136-145)
[2017-10-11 05:37] LABS: BLOOD UREA NITROGEN < 2 mg/dL (7-26); BUN/CREATININE RATIO 4 (6-25)
[2017-10-11] MEDS: ONDANSETRON HCL INJ 2 MG/ML VIAL IV PRN (05:56)
[2017-10-11] MEDS: PANTOPRAZOLE 40 MG 10ML VIAL IV SCH ×2 (08:47→20:50)
[2017-10-11] MEDS: LEVOTHYROXINE SODIUM 100 MCG/VIAL IV SCH (08:47)
[2017-10-11] MEDS ORDERED: OXAZEPAM 10 MG CAP PO PRN (09:15)
[2017-10-11] MEDS: FLUCONAZOLE 400MG/200ML BAG 200 ML IV SCH (09:54)
[2017-10-11] MEDS: DEXTROSE 5%/0.9% SOD CHL 1,000 ML IV SCH (09:54)
[2017-10-11] MEDS: DAPTOMYCIN 500 MG in SODIUM CHLORIDE 0.9% 100 ML IV SCH (11:51)
[2017-10-11] MEDS: ACETAMINOPHEN 1000 MG/100 ML IV PRN ×2 (12:27→22:01)
[2017-10-11] MEDS ORDERED: DIATRIZOATE MEGL/DIATRIZOA SOD 30 ML BTL PO ONE (13:39)
[2017-10-11] MEDS ORDERED: SODIUM CHLORIDE 0.9% 50ML 50 ML ONE (14:25)
[2017-10-11] MEDS ORDERED: IOPAMIDOL 370 MG/ML 200 ML INFUS..BTL INJ ONE (14:26)
--- NOTE | 2017-10-11 15:57 | Diagnostic Imaging Report ---
PROCEDURE: CT ABDOMEN AND PELVIS WITH CONTRAST TECHNIQUE: The abdomen and pelvis were scanned utilizing a multidetector helical scanner from the diaphragm to the lesser trochanter after the IV administration of 100cc of Isovue 370 and the oral administration of Gastrografin. Coronal and sagittal multiplanar reformations were obtained. Total DLP: 1383.77 mGy-cm COMPARISON: CT abdomen pelvis 10/05/2017 INDICATIONS: ABDOMINAL WOUND FINDINGS: LOWER THORAX: Small bilateral pleural effusions, left greater than right. Atelectasis. Small sliding hiatal hernia. HEPATOBILIARY: No focal hepatic lesions. No biliary ductal dilatation. SPLEEN: No splenomegaly. PANCREAS: No focal masses or ductal dilatation. ADRENALS: No adrenal nodules. KIDNEYS/URETERS: No hydronephrosis, stones, or solid mass lesions. PELVIC ORGANS/BLADDER: Unremarkable. PERITONEUM / RETROPERITONEUM: Scattered foci as well. There is gas in the anterior upper abdomen and the stomach. Free fluid in the cul-de-sac and along the superior aspect of bladder. LYMPH NODES: No lymphadenopathy. VESSELS: Unremarkable. GI TRACT: Postoperative changes of gastric bypass. Vertical staple line along the greater curvature of the stomach with additional anastomoses to a small bowel loop which connects distally to another small bowel small bowel anastomotic line. Distal stomach is not well seen and demonstrates postoperative changes. This has appearance of a distal gastrectomy and proximal duodenectomy. Postoperative changes with midline skin armand. Soft tissue defect in the right abdomen with postoperative changes. Right upper quadrant surgical changes at the distal gastrectomy site with focal area of gas. Additional left abdominal subcutaneous drain BONES AND SOFT TISSUES: Unremarkable. IMPRESSION: 1. Postoperative changes of distal gastrectomy, likely a Billroth II versus Eleanor-en-Y gastric bypass. 2. Improving postoperative changes. Improving postoperative gas. No leak identified. Dictated by: Gui Minaya M.D. on 10/11/2017 at 16:02 Electronically approved by: Gui Minaya M.D. on 10/11/2017 at 16:02
[2017-10-11] MEDS: HEPARIN SOD (PORCINE) 5,000 UNIT/ML VIAL SC SCH (20:50)
[2017-10-12] VITALS: BP 114/71
[2017-10-12] MEDS: METRONIDAZOLE 500MG/NS 100ML 100 ML IV SCH ×3 (00:29→21:49)
[2017-10-12 04:00] VITALS: BP 108/74
[2017-10-12] MEDS: DEXTROSE 5%/0.9% SOD CHL 1,000 ML IV SCH (04:14)
[2017-10-12 05:26] LABS: BASOPHILS # (AUTO) 0.1 (0.0-0.1); BASOPHILS % 0.5 % (0.0-1.0); EOSINOPHILS # (AUTO) 0.5 (0.0-0.4); EOSINOPHILS % 2.5 % (0.0-6.0); HEMATOCRIT 27.4 % (34.2-44.1); HEMOGLOBIN 8.7 g/dL (12.0-16.0); LYMPHOCYTES # (AUTO) 2.6 (1.0-3.2); LYMPHOCYTES % 13.2 % (18.0-39.1); MEAN CORPUSCULAR HEMOGLOBIN 24.9 pg (28-32); MEAN CORPUSCULAR HGB CONC 31.8 g/dL (31-35); MEAN CORPUSCULAR VOLUME 78.3 fL (81-99); MONOCYTES # (AUTO) 1.5 (0.2-0.8); MONOCYTES % 7.4 % (4.4-11.3); NEUTROPHILS # (AUTO) 14.3 (2.1-6.9); NEUTROPHILS % 72.2 % (38.7-80.0); PLATELET COUNT 409 x10e3/uL (140-360); RED CELL DISTRIBUTION WIDTH 14.7 % (11.7-14.4)
[2017-10-12] MEDS: FLUCONAZOLE 400MG/200ML BAG 200 ML IV SCH (05:29)
[2017-10-12] MEDS: CEFEPIME HCL 2 GM VIAL IV SCH ×2 (05:29→14:00)
[2017-10-12] MEDS ORDERED: METRONIDAZOLE 500 MG TAB PO SCH (06:00)
[2017-10-12 06:08] LABS: ALANINE AMINOTRANSFERASE 21 IU/L (0-55); ALBUMIN 2.2 g/dL (3.5-5.0); ALBUMIN/GLOBULIN RATIO 0.6 (0.8-2.0); ALKALINE PHOSPHATASE 64 IU/L (40-150); ANION GAP 13.2 mmol/L (8-16); CALCIUM 7.9 mg/dL (8.4-10.2); CARBON DIOXIDE 22 mmol/L (22-29); CHLORIDE 105 mmol/L (98-107); CREATININE, SERUM 0.49 mg/dL (0.57-1.11); EST GLOMERULAR FILTRATION RATE > 60 ML/MIN (60-); GLUCOSE 92 mg/dL (74-118); POTASSIUM 3.2 mmol/L (3.5-5.1); SODIUM 137 mmol/L (136-145)
[2017-10-12 06:09] LABS: BLOOD UREA NITROGEN < 2 mg/dL (7-26); BUN/CREATININE RATIO 4 (6-25)
[2017-10-12 07:42] VITALS: BP 125/90
[2017-10-12 08:07] LABS: LYMPHOCYTES % (MANUAL) 15 % (19-48); MONOCYTES % (MANUAL) 8 % (3.4-9.0); NEUTROPHILS % (MANUAL) 74 % (40-74)
[2017-10-12 08:08] LABS: ANISOCYTOSIS SLIGHT; HYPOCHROMASIA MODERATE; PLATELET ESTIMATE SLIGHTLY INCREASED; PLATELET MORPHOLOGY COMMENT NORMAL; RBC MORPHOLOGY COMMENT NORMAL
[2017-10-12 09:00] VITALS: BP 125/90
[2017-10-12] MEDS ORDERED: POTASSIUM CHLORIDE 20MEQ/15ML UDC NG SCH (09:00)
[2017-10-12] MEDS: PANTOPRAZOLE 40 MG 10ML VIAL IV SCH ×2 (09:31→20:39)
[2017-10-12] MEDS: LEVOTHYROXINE SODIUM 100 MCG/VIAL IV SCH (09:31)
[2017-10-12] MEDS: HEPARIN SOD (PORCINE) 5,000 UNIT/ML VIAL SC SCH ×2 (09:32→20:40)
[2017-10-12 10:22] LABS: AMYLASE 37 U/L (25-125); LIPASE 22 U/L (8-78)
[2017-10-12] MEDS ORDERED: D5NS/KCL 20MEQ 1,000 ML IV SCH (10:30)
[2017-10-12] MEDS ORDERED: POTASSIUM CHLORIDE 20MEQ/15ML UDC NG PRN (10:30)
[2017-10-12] MEDS ORDERED: SIMETHICONE 40 MG/0.6 ML BTL PO PRN (15:45)
[2017-10-12 15:50] VITALS: BP 128/88
[2017-10-12] MEDS: MEROPENEM 500 MG VIAL IV SCH (18:42)
[2017-10-12 20:00] VITALS: BP 142/88
[2017-10-13] VITALS: BP 108/76
[2017-10-13] MEDS ORDERED: MEROPENEM 500MG 500 MG in SODIUM CHLORIDE 0.9% 50ML 50 ML IV SCH ×2
[2017-10-13] MEDS: MEROPENEM 500 MG VIAL IV SCH ×5 (00:06→23:25)
[2017-10-13 05:16] LABS: BASOPHILS # (AUTO) 0.1 (0.0-0.1); BASOPHILS % 0.4 % (0.0-1.0); EOSINOPHILS # (AUTO) 0.4 (0.0-0.4); HEMATOCRIT 26.4 % (34.2-44.1); HEMOGLOBIN 8.3 g/dL (12.0-16.0); LYMPHOCYTES # (AUTO) 2.8 (1.0-3.2); LYMPHOCYTES % 15.1 % (18.0-39.1); MEAN CORPUSCULAR HEMOGLOBIN 24.9 pg (28-32); MEAN CORPUSCULAR HGB CONC 31.4 g/dL (31-35); MONOCYTES # (AUTO) 1.1 (0.2-0.8); MONOCYTES % 6.1 % (4.4-11.3); NEUTROPHILS # (AUTO) 13.3 (2.1-6.9); NEUTROPHILS % 72.8 % (38.7-80.0); PLATELET COUNT 425 x10e3/uL (140-360); RED BLOOD COUNT 3.34 x10e6/uL (3.6-5.1); RED CELL DISTRIBUTION WIDTH 14.7 % (11.7-14.4)
[2017-10-13 05:55] LABS: BLOOD UREA NITROGEN < 2 mg/dL (7-26)
[2017-10-13] MEDS: METRONIDAZOLE 500MG/NS 100ML 100 ML IV SCH ×3 (06:14→21:29)
[2017-10-13] MEDS: FLUCONAZOLE 400MG/200ML BAG 200 ML IV SCH (06:14)
[2017-10-13 06:15] LABS: ALANINE AMINOTRANSFERASE 34 IU/L (0-55); ALBUMIN 2.2 g/dL (3.5-5.0); ALBUMIN/GLOBULIN RATIO 0.6 (0.8-2.0); ALKALINE PHOSPHATASE 59 IU/L (40-150); ANION GAP 14.9 mmol/L (8-16); BUN/CREATININE RATIO 4 (6-25); CALCIUM 7.7 mg/dL (8.4-10.2); CARBON DIOXIDE 22 mmol/L (22-29); CHLORIDE 102 mmol/L (98-107); CREATININE, SERUM 0.52 mg/dL (0.57-1.11); EST GLOMERULAR FILTRATION RATE > 60 ML/MIN (60-); GLUCOSE 90 mg/dL (74-118); SODIUM 136 mmol/L (136-145)
[2017-10-13 06:18] LABS: POTASSIUM 2.9 mmol/L (3.5-5.1)
[2017-10-13] MEDS ORDERED: POTASSIUM CHLORIDE 20MEQ/100ML 100 ML IV ONE (07:05)
[2017-10-13 07:23] LABS: BAND NEUTROPHILS % (MANUAL) 1 %; EOSINOPHILS % (MANUAL) 2 % (0-7); LYMPHOCYTES % (MANUAL) 12 % (19-48); MONOCYTES % (MANUAL) 3 % (3.4-9.0); NEUTROPHILS % (MANUAL) 80 % (40-74)
[2017-10-13 07:30] LABS: ANISOCYTOSIS SLIGHT; HYPOCHROMASIA SLIGHT; PLATELET ESTIMATE ADEQUATE; PLATELET MORPHOLOGY COMMENT NORMAL; RBC MORPHOLOGY COMMENT NORMAL
[2017-10-13 07:50] VITALS: BP 127/84
[2017-10-13] MEDS: POTASSIUM CHL IV SCH (08:55)
[2017-10-13] MEDS: SOD CHL IV SCH (08:55)
[2017-10-13] MEDS: DEXTROSE IV SCH (08:55)
[2017-10-13] MEDS: PANTOPRAZOLE 40 MG 10ML VIAL IV SCH ×2 (08:55→21:28)
[2017-10-13] MEDS: LACTOBACILLUS ACIDOPHILUS CAPSULE PO SCH (08:55)
[2017-10-13] MEDS: HEPARIN SOD (PORCINE) 5,000 UNIT/ML VIAL SC SCH ×2 (08:56→21:29)
[2017-10-13] MEDS: LEVOTHYROXINE SODIUM 100 MCG/VIAL IV SCH (09:42)
[2017-10-13 10:31] VITALS: BP 129/87
[2017-10-13 17:15] VITALS: BP 111/78
[2017-10-13 19:00] VITALS: BP 115/74
[2017-10-13 23:00] VITALS: BP 120/74
[2017-10-14 04:00] VITALS: BP 95/48
[2017-10-14 05:18] LABS: ANION GAP 13.5 mmol/L (8-16); BLOOD UREA NITROGEN < 2 mg/dL (7-26); BUN/CREATININE RATIO 4 (6-25); CALCIUM 7.8 mg/dL (8.4-10.2); CARBON DIOXIDE 27 mmol/L (22-29); CHLORIDE 99 mmol/L (98-107); EST GLOMERULAR FILTRATION RATE > 60 ML/MIN (60-); GLUCOSE 94 mg/dL (74-118); POTASSIUM 3.5 mmol/L (3.5-5.1); SODIUM 136 mmol/L (136-145)
[2017-10-14] MEDS: DEXTROSE IV SCH ×2 (05:30→23:20)
[2017-10-14] MEDS: SOD CHL IV SCH ×2 (05:30→23:20)
[2017-10-14] MEDS: POTASSIUM CHL IV SCH ×2 (05:30→23:20)
[2017-10-14] MEDS: METRONIDAZOLE 500MG/NS 100ML 100 ML IV SCH ×2 (05:47→14:41)
[2017-10-14] MEDS: FLUCONAZOLE 400MG/200ML BAG 200 ML IV SCH (05:47)
[2017-10-14] MEDS: MEROPENEM 500 MG VIAL IV SCH ×2 (05:47→12:13)
[2017-10-14 08:00] VITALS: BP 102/65
[2017-10-14 08:09] LABS: BASOPHILS # (AUTO) 0.1 (0.0-0.1); BASOPHILS % 0.5 % (0.0-1.0); EOSINOPHILS # (AUTO) 0.3 (0.0-0.4); EOSINOPHILS % 1.7 % (0.0-6.0); HEMATOCRIT 27.3 % (34.2-44.1); HEMOGLOBIN 8.7 g/dL (12.0-16.0); LYMPHOCYTES # (AUTO) 2.9 (1.0-3.2); LYMPHOCYTES % 17.3 % (18.0-39.1); MEAN CORPUSCULAR HEMOGLOBIN 25.2 pg (28-32); MEAN CORPUSCULAR HGB CONC 31.9 g/dL (31-35); MEAN CORPUSCULAR VOLUME 79.1 fL (81-99); NEUTROPHILS % 71.3 % (38.7-80.0); PLATELET COUNT 485 x10e3/uL (140-360); RED BLOOD COUNT 3.45 x10e6/uL (3.6-5.1); RED CELL DISTRIBUTION WIDTH 14.8 % (11.7-14.4)
[2017-10-14 08:44] LABS: LYMPHOCYTES % (MANUAL) 20 % (19-48); MONOCYTES % (MANUAL) 8 % (3.4-9.0); NEUTROPHILS % (MANUAL) 72 % (40-74); PLATELET ESTIMATE ADEQUATE; PLATELET MORPHOLOGY COMMENT NORMAL; RBC MORPHOLOGY COMMENT NORMAL
[2017-10-14 08:52] VITALS: BP 102/65
[2017-10-14] MEDS: LEVOTHYROXINE SODIUM 100 MCG/VIAL IV SCH (09:51)
[2017-10-14] MEDS: PANTOPRAZOLE 40 MG 10ML VIAL IV SCH ×2 (09:51→22:08)
[2017-10-14] MEDS: LACTOBACILLUS ACIDOPHILUS CAPSULE PO SCH (09:51)
[2017-10-14] MEDS: HEPARIN SOD (PORCINE) 5,000 UNIT/ML VIAL SC SCH ×2 (09:52→22:08)
[2017-10-14 12:07] VITALS: BP 124/76
[2017-10-14 20:00] VITALS: BP 123/82
[2017-10-14 21:00] VITALS: BP 123/80
[2017-10-14] MEDS ORDERED: MEROPENEM 1GRAM 1 GM in SODIUM CHLORIDE 0.9% 100 ML 100 ML IV SCH (22:00)
[2017-10-14] MEDS: MEROPENEM 1 GM VIAL IV SCH (22:09)
[2017-10-15] VITALS (8 sets, daily range): BP systolic 105–131; BP diastolic 59–80
[2017-10-15] MEDS: MEROPENEM 1 GM VIAL IV SCH ×3 (06:20→21:38)
[2017-10-15] MEDS: PANTOPRAZOLE 40 MG 10ML VIAL IV SCH ×2 (08:22→21:37)
[2017-10-15] MEDS: LACTOBACILLUS ACIDOPHILUS CAPSULE PO SCH ×2 (08:22→21:37)
[2017-10-15] MEDS: HEPARIN SOD (PORCINE) 5,000 UNIT/ML VIAL SC SCH ×2 (08:23→21:38)
[2017-10-15] MEDS: LEVOTHYROXINE SODIUM 100 MCG/VIAL IV SCH (09:58)
[2017-10-15 10:24] LABS: BASOPHILS # (AUTO) 0.1 (0.0-0.1); BASOPHILS % 0.5 % (0.0-1.0); EOSINOPHILS # (AUTO) 0.3 (0.0-0.4); EOSINOPHILS % 2.2 % (0.0-6.0); HEMATOCRIT 24.6 % (34.2-44.1); LYMPHOCYTES # (AUTO) 2.4 (1.0-3.2); MEAN CORPUSCULAR HEMOGLOBIN 25.3 pg (28-32); MEAN CORPUSCULAR HGB CONC 32.5 g/dL (31-35); MEAN CORPUSCULAR VOLUME 77.8 fL (81-99); MONOCYTES % 7.5 % (4.4-11.3); NEUTROPHILS % 68.9 % (38.7-80.0); PLATELET COUNT 367 x10e3/uL (140-360); RED BLOOD COUNT 3.16 x10e6/uL (3.6-5.1); RED CELL DISTRIBUTION WIDTH 14.9 % (11.7-14.4)
[2017-10-15 10:41] LABS: ANION GAP 12.3 mmol/L (8-16); BLOOD UREA NITROGEN < 2 mg/dL (7-26); BUN/CREATININE RATIO 4 (6-25); CALCIUM 7.5 mg/dL (8.4-10.2); CARBON DIOXIDE 27 mmol/L (22-29); CHLORIDE 100 mmol/L (98-107); CREATININE, SERUM 0.49 mg/dL (0.57-1.11); EST GLOMERULAR FILTRATION RATE > 60 ML/MIN (60-); GLUCOSE 128 mg/dL (74-118); POTASSIUM 3.3 mmol/L (3.5-5.1); SODIUM 136 mmol/L (136-145)
[2017-10-15 11:36] LABS: BAND NEUTROPHILS % (MANUAL) 6 %; LYMPHOCYTES % (MANUAL) 19 % (19-48); MONOCYTES % (MANUAL) 9 % (3.4-9.0); NEUTROPHILS % (MANUAL) 66 % (40-74); PLATELET ESTIMATE ADEQUATE; PLATELET MORPHOLOGY COMMENT NORMAL; RBC MORPHOLOGY COMMENT NORMAL
[2017-10-15] MEDS: DEXTROSE IV SCH (20:42)
[2017-10-15] MEDS: SOD CHL IV SCH (20:42)
[2017-10-15] MEDS: POTASSIUM CHL IV SCH (20:42)
[2017-10-16] VITALS (7 sets, daily range): BP systolic 104–152; BP diastolic 66–82
--- NOTE | 2017-10-16 00:51 | Progress Note ---
DATE: SUBJECTIVE: Ms. Ayoub continues to do well. There are no new complaints. REVIEW OF SYSTEMS: Otherwise unremarkable. Her wound healing. PHYSICAL EXAMINATION GENERAL: She is alert, oriented, does not seem to be in acute distress. VITALS: Stable. Currently afebrile. HEENT: She is not icteric. NECK: Supple. CHEST: Clear. HEART: S1 and S2. ABDOMEN: Soft, obese. No tenderness. EXTREMITIES: No edema. IMPRESSIONS 1. Patient's intra-abdominal infection, surgical wound infection continues to improve. She will continue on meropenem. 2. Obesity. 3. Leukocytosis. 4. Anemia. PLAN: Recheck CBC, recheck chem panel. If the CBC goes down to normal, we can switch her to oral Cipro and Flagyl and doxycycline and discharge. Job#: [id number]
[2017-10-16] MEDS: MEROPENEM 1 GM VIAL IV SCH ×3 (06:14→20:55)
[2017-10-16 06:49] LABS: BASOPHILS # (AUTO) 0.1 (0.0-0.1); BASOPHILS % 0.5 % (0.0-1.0); EOSINOPHILS # (AUTO) 0.4 (0.0-0.4); EOSINOPHILS % 3.6 % (0.0-6.0); HEMATOCRIT 26.2 % (34.2-44.1); HEMOGLOBIN 8.2 g/dL (12.0-16.0); LYMPHOCYTES # (AUTO) 2.7 (1.0-3.2); LYMPHOCYTES % 24.9 % (18.0-39.1); MEAN CORPUSCULAR HEMOGLOBIN 24.7 pg (28-32); MEAN CORPUSCULAR HGB CONC 31.3 g/dL (31-35); MEAN CORPUSCULAR VOLUME 78.9 fL (81-99); MONOCYTES # (AUTO) 0.9 (0.2-0.8); MONOCYTES % 7.9 % (4.4-11.3); NEUTROPHILS # (AUTO) 6.4 (2.1-6.9); PLATELET COUNT 401 x10e3/uL (140-360); RED BLOOD COUNT 3.32 x10e6/uL (3.6-5.1); RED CELL DISTRIBUTION WIDTH 15.1 % (11.7-14.4)
[2017-10-16 06:58] LABS: ANION GAP 11.5 mmol/L (8-16); CALCIUM 7.7 mg/dL (8.4-10.2); CARBON DIOXIDE 27 mmol/L (22-29); CHLORIDE 102 mmol/L (98-107); EST GLOMERULAR FILTRATION RATE > 60 ML/MIN (60-); GLUCOSE 104 mg/dL (74-118); POTASSIUM 3.5 mmol/L (3.5-5.1); SODIUM 137 mmol/L (136-145)
[2017-10-16 06:59] LABS: BLOOD UREA NITROGEN < 2 mg/dL (7-26); BUN/CREATININE RATIO 4 (6-25)
[2017-10-16 09:50] LABS: ANISOCYTOSIS SLIGHT; EOSINOPHILS % (MANUAL) 3 % (0-7); HYPOCHROMASIA SLIGHT; LYMPHOCYTES % (MANUAL) 22 % (19-48); MONOCYTES % (MANUAL) 9 % (3.4-9.0); MYELOCYTES % (MANUAL) 2 % (0-0); NEUTROPHILS % (MANUAL) 64 % (40-74); PLATELET ESTIMATE SLIGHTLY INCREASED; PLATELET MORPHOLOGY COMMENT NORMAL; RBC MORPHOLOGY COMMENT NORMAL
[2017-10-16] MEDS ORDERED: DOXYCYCLINE HY100 MG PO (09:52)
[2017-10-16] MEDS ORDERED: CIPRO500 MG PO (09:55)
[2017-10-16] MEDS ORDERED: FLAGYL500 MG PO (09:55)
[2017-10-16] MEDS: LEVOTHYROXINE SODIUM 100 MCG/VIAL IV SCH (10:15)
[2017-10-16] MEDS: PANTOPRAZOLE 40 MG 10ML VIAL IV SCH ×2 (10:15→20:55)
[2017-10-16] MEDS: HEPARIN SOD (PORCINE) 5,000 UNIT/ML VIAL SC SCH ×2 (10:15→20:58)
[2017-10-16 10:30] LABS: THYROID STIMULATING HORMONE 3.986 uIU/mL (0.350-4.940)
[2017-10-16] MEDS: METRONIDAZOLE 500 MG TAB PO SCH ×2 (14:03→20:55)
[2017-10-16] MEDS: CIPROFLOXACIN 500 MG TAB PO SCH (17:00)
[2017-10-16] MEDS: DEXTROSE IV SCH (17:06)
[2017-10-16] MEDS: SOD CHL IV SCH (17:06)
[2017-10-16] MEDS: POTASSIUM CHL IV SCH (17:06)
[2017-10-17] VITALS: BP 103/73
[2017-10-17] MEDS: METRONIDAZOLE 500 MG TAB PO SCH (05:13)
[2017-10-17] MEDS: MEROPENEM 1 GM VIAL IV SCH (05:13)
[2017-10-17 05:58] LABS: BASOPHILS # (AUTO) 0.1 (0.0-0.1); BASOPHILS % 0.5 % (0.0-1.0); EOSINOPHILS # (AUTO) 0.4 (0.0-0.4); EOSINOPHILS % 3.7 % (0.0-6.0); HEMATOCRIT 29.1 % (34.2-44.1); LYMPHOCYTES # (AUTO) 2.6 (1.0-3.2); LYMPHOCYTES % 27.2 % (18.0-39.1); MEAN CORPUSCULAR HEMOGLOBIN 24.7 pg (28-32); MEAN CORPUSCULAR HGB CONC 30.9 g/dL (31-35); MEAN CORPUSCULAR VOLUME 79.7 fL (81-99); MONOCYTES # (AUTO) 0.9 (0.2-0.8); NEUTROPHILS # (AUTO) 5.2 (2.1-6.9); NEUTROPHILS % 55.6 % (38.7-80.0); PLATELET COUNT 437 x10e3/uL (140-360); RED BLOOD COUNT 3.65 x10e6/uL (3.6-5.1); RED CELL DISTRIBUTION WIDTH 15.2 % (11.7-14.4)
[2017-10-17 05:59] VITALS: BP 111/74
[2017-10-17 06:10] LABS: INR 1.35; PROTHROMBIN TIME 15.7 seconds (11.9-14.5)
[2017-10-17 06:15] LABS: ALANINE AMINOTRANSFERASE 35 IU/L (0-55); ALBUMIN 2.5 g/dL (3.5-5.0); ALBUMIN/GLOBULIN RATIO 0.7 (0.8-2.0); ALKALINE PHOSPHATASE 49 IU/L (40-150); BLOOD UREA NITROGEN < 5 mg/dL (7-26); CALCIUM 8.1 mg/dL (8.4-10.2); CARBON DIOXIDE 25 mmol/L (22-29); CHLORIDE 103 mmol/L (98-107); CREATININE, SERUM 0.52 mg/dL (0.57-1.11); EST GLOMERULAR FILTRATION RATE > 60 ML/MIN (60-); GLUCOSE 111 mg/dL (74-118); SODIUM 137 mmol/L (136-145)
[2017-10-17 06:17] LABS: BUN/CREATININE RATIO 10 (6-25)
[2017-10-17 07:44] LABS: EOSINOPHILS % (MANUAL) 1 % (0-7); LYMPHOCYTES % (MANUAL) 19 % (19-48); MONOCYTES % (MANUAL) 7 % (3.4-9.0); NEUTROPHILS % (MANUAL) 73 % (40-74)
[2017-10-17 07:46] LABS: ANISOCYTOSIS SLIGHT; HYPOCHROMASIA SLIGHT; STOMATOCYTES SLIGHT
[2017-10-17 07:47] LABS: PLATELET ESTIMATE ADEQUATE; PLATELET MORPHOLOGY COMMENT NORMAL; RBC MORPHOLOGY COMMENT NORMAL
[2017-10-17 08:00] VITALS: BP 111/74
[2017-10-17 08:08] VITALS: BP 113/67
[2017-10-17] MEDS: CIPROFLOXACIN 500 MG TAB PO SCH (09:00)
[2017-10-17] MEDS: LACTOBACILLUS ACIDOPHILUS CAPSULE PO SCH (09:00)
[2017-10-17] MEDS: HEPARIN SOD (PORCINE) 5,000 UNIT/ML VIAL SC SCH (09:00)
[2017-10-17] MEDS: LEVOTHYROXINE SODIUM 100 MCG/VIAL IV SCH (09:00)
[2017-10-17] MEDS: PANTOPRAZOLE 40 MG 10ML VIAL IV SCH (09:00)
[2017-10-17] MEDS ORDERED: LEVAQUIN500 MG PO (11:06)
[2017-10-17] MEDS ORDERED: DOXYCYCLINE HY100 MG PO ×2 (11:08→12:36)
[2017-10-17] MEDS ORDERED: CIPRO500 MG PO ×2 (11:09→12:36)
[2017-10-17 11:57] VITALS: BP 111/68
[2017-10-17] MEDS ORDERED: FLAGYL250 MG PO (12:37)
[2017-10-17] MEDS: DEXTROSE IV SCH (13:30)
[2017-10-17] MEDS: POTASSIUM CHL IV SCH (13:30)
[2017-10-17] MEDS: SOD CHL IV SCH (13:30)
--- NOTE | 2017-10-17 13:54 | Discharge Summary ---
Patient of Dr. Mackenzie, Dr. Cruz. A charming but unfortunate 36-year-old woman who underwent gastric bypass in [place] 2 days prior to admission. She had an anastomotic leak there, and was told by the surgeon that she needed surgery. However, she declined to have the surgery there and came to [facility] emergency room. White count was 25,000. Dr. Cruz was consulted emergently. She was taken to the operating room and the leak was closed. She was also seen by Dr. Mackenzie. Cultures grew Citrobacter in the urine and clinton in the wound. She was treated initially with meropenem, metronidazole and fluconazole. She was initially treated with Zosyn, but this was changed to meropenem. The patient gradually improved. White count fell. Purulent drainage resolved. She was discharged to be followed as an outpatient. Some wound drainage in the KANIKA drain. The patient feels that she can care for the wound at home. She declined wound care evaluation and home health. Discharged on: 1. Ciprofloxacin 500 mg b.i.d. 2. Protonix 40 mg a day. 3. Flagyl 500 mg t.i.d. 4. Doxycycline 100 mg b.i.d. Discharged much improved. Follow with Dr. Cruz, Dr. Mackenzie and Dr. Vu. ANALIA ZAMORANO MD Job#: [id number] CO
== END 2017-10-17 15:24 | disposition home or self-care (01) | DRG 326 ==
LOC: ER 00:46 → ERHOLD 05:59 → ICU 12:51 → IMCU 10-06 19:00 → MED/SURG2 10-16 15:31
PROVIDERS: ADMIT Internal Medicine; ATTEND Internal Medicine
PROC: 3E0M05Z Introduction of Adhesion Barrier into Peritoneal Cavity, Open Approach (ICD-10-PCS; 2017-10-05)
PROC: 0W9G00Z Drainage of Peritoneal Cavity with Drainage Device, Open Approach (ICD-10-PCS; 2017-10-05)
PROC: 0WJP0ZZ Inspection of Gastrointestinal Tract, Open Approach (ICD-10-PCS; principal; 2017-10-05 08:30)
PROC: 0D160ZA Bypass Stomach to Jejunum, Open Approach (ICD-10-PCS; 2017-10-05 08:30)
DX: K91.89 Other postprocedural complications and disorders of digestive system (principal); A41.9 Sepsis, unspecified organism; Z68.43 Body mass index [BMI] 50.0-59.9, adult; N39.0 Urinary tract infection, site not specified; B37.89 Other sites of candidiasis; K95.89 Other complications of other bariatric procedure; K95.81 Infection due to other bariatric procedure; Y83.2 Surgical operation with anastomosis, bypass or graft as the cause of abnormal reaction of the patient, or of later complication, without mention of misadventure at the time of the procedure; E66.01 Morbid (severe) obesity due to excess calories; E03.9 Hypothyroidism, unspecified; B96.89 Other specified bacterial agents as the cause of diseases classified elsewhere; Z98.0 Intestinal bypass and anastomosis status
CPT/HCPCS: 36415; 36568; 71045; 71046; 74018; 74177; 80048; 80053; 80202; 81001; 81025; 82150; 82550; 82553; 82948; 83605; 83690; 83735; 84436; 84443; 84479; 84484; 85025; 85379; 85384; 85610; 85730; 86850; 86900; 87040; 87071; 87086; 87186; 87205; 99284; J0692; J1100; J1450; J1644; J2001; J2185; J2250; J2270; J2405; J2543; J2550; J3370; J3480; J7030; J7040; J7042; J7050; J7120; J7799; Q9967

== ENCOUNTER → 2017-10-19 | Outpatient (CLI) | payer BC ==
[~2017-10-19] MED LIST: CIPRO500 MG PO; DOXYCYCLINE HY100 MG PO; FLAGYL250 MG PO; FLAGYL500 MG PO; LEVAQUIN500 MG PO; LEVOTHYROXINE100 MCG PO; LIDOCAINE VISC 2% SOLN 15 ML UDC ONE; PANTOPRAZOLE SO40 MG PO
== END ==
LOC: WCC 14:38
PROVIDERS: ATTEND Plastic Surgery
DX: T81.32XA Disruption of internal operation (surgical) wound, not elsewhere classified, initial encounter (principal); T81.89XA Other complications of procedures, not elsewhere classified, initial encounter; K91.89 Other postprocedural complications and disorders of digestive system; B96.89 Other specified bacterial agents as the cause of diseases classified elsewhere; E03.8 Other specified hypothyroidism; K21.9 Gastro-esophageal reflux disease without esophagitis
CPT/HCPCS: 87071; 87075; 87205

== ENCOUNTER 2017-10-26 00:19 | Emergency (ER) | payer BC ==
[~2017-10-26] VITALS: Ht 167.6 cm; Wt 152.9 kg
[~2017-10-26 00:19] MED LIST changes: -LIDOCAINE VISC 2% SOLN 15 ML UDC ONE
[2017-10-26] MEDS ORDERED: SODIUM CHLORIDE 0.9% 1000ML 1,000 ML IV STA (00:28)
[2017-10-26 00:45] LABS: BASOPHILS # (AUTO) 0.1 (0.0-0.1); BASOPHILS % 0.5 % (0.0-1.0); EOSINOPHILS # (AUTO) 0.3 (0.0-0.4); EOSINOPHILS % 2.3 % (0.0-6.0); HEMATOCRIT 34.4 % (34.2-44.1); HEMOGLOBIN 10.9 g/dL (12.0-16.0); LYMPHOCYTES # (AUTO) 2.8 (1.0-3.2); LYMPHOCYTES % 22.2 % (18.0-39.1); MEAN CORPUSCULAR HEMOGLOBIN 25.6 pg (28-32); MEAN CORPUSCULAR HGB CONC 31.7 g/dL (31-35); MEAN CORPUSCULAR VOLUME 80.8 fL (81-99); MONOCYTES # (AUTO) 0.9 (0.2-0.8); MONOCYTES % 7.3 % (4.4-11.3); NEUTROPHILS # (AUTO) 8.6 (2.1-6.9); NEUTROPHILS % 67.2 % (38.7-80.0); PLATELET COUNT 472 x10e3/uL (140-360); RED BLOOD COUNT 4.26 x10e6/uL (3.6-5.1); RED CELL DISTRIBUTION WIDTH 15.6 % (11.7-14.4)
[2017-10-26 00:57] LABS: INR 1.23; PROTHROMBIN TIME 14.6 seconds (11.9-14.5)
[2017-10-26 00:58] LABS: PARTIAL THROMBOPLASTIN TIME 29.1 seconds (23.8-35.5)
[2017-10-26] MEDS ORDERED: DIATRIZOATE MEGL/DIATRIZOA SOD 30 ML BTL PO ONE (01:24)
[2017-10-26 01:47] LABS: CLARITY,URINE SL CLOUDY (CLEAR); COLOR,URINE YELLOW (YELLOW)
[2017-10-26 01:48] LABS: BILIRUBIN,URINE NEGATIVE (NEGATIVE); KETONES,URINE NEGATIVE (NEGATIVE); LEUKOCYTE ESTERASE ,URINE TRACE (NEGATIVE); NITRITE,URINE NEGATIVE (NEGATIVE); PREGNANCY TEST, URINE NEGATIVE (NEGATIVE); PROTEIN,URINE DIPSTICK TRACE (NEGATIVE); URINE UROBILINOGEN 0.2 mg/dL (0.2 - 1)
[2017-10-26 01:59] LABS: BACTERIA,URINE RARE /HPF; RBC,URINE 0-5 /HPF (0-5); WBC,URINE (MAN) 0-5 /HPF (0-5)
[2017-10-26 02:00] LABS: EPITHELIAL CELLS,URINE FEW /LPF
[2017-10-26] MEDS ORDERED: ACETAMINOPHEN 1000 MG/100 ML IV STA (02:08)
[2017-10-26 02:12] LABS: ALANINE AMINOTRANSFERASE 18 IU/L (0-55); ALBUMIN 2.9 g/dL (3.5-5.0); ALBUMIN/GLOBULIN RATIO 0.7 (0.8-2.0); ALKALINE PHOSPHATASE 57 IU/L (40-150); AMYLASE 43 U/L (25-125); BLOOD UREA NITROGEN < 5 mg/dL (7-26); CALCIUM 8.6 mg/dL (8.4-10.2); CARBON DIOXIDE 24 mmol/L (22-29); CHLORIDE 101 mmol/L (98-107); CREATINE KINASE 25 IU/L (29-168); CREATININE, SERUM 0.54 mg/dL (0.57-1.11); EST GLOMERULAR FILTRATION RATE > 60 ML/MIN (60-); GLUCOSE 99 mg/dL (74-118); LIPASE 25 U/L (8-78); MAGNESIUM 1.5 MG/DL (1.3-2.1); SODIUM 136 mmol/L (136-145)
[2017-10-26 02:14] LABS: BUN/CREATININE RATIO 9 (6-25)
[2017-10-26] MEDS ORDERED: SODIUM CHLORIDE 0.9% 50ML 50 ML ONE (02:22)
[2017-10-26] MEDS ORDERED: IOPAMIDOL 370 MG/ML 200 ML INFUS..BTL INJ ONE (02:22)
--- NOTE | 2017-10-26 03:46 | Diagnostic Imaging Report ---
EXAM: CT ABDOMEN/PELVIS W DATE: 10/26/2017 1:13 AM INDICATION: \S\S/P REPAIR OF ANASTOMIC LEAK OF GJ, FEVER, DS/C FROM [facility] \S\[id number] \S\224 COMPARISON: 10.11.17 TECHNIQUE: The abdomen and pelvis were scanned using a multidetector helical scanner. Coronal and sagittal reformations were obtained. Routine protocol performed. Diluted Gastrografin was administered orally. IV Contrast: 100 ml Isovue 300/370 Oral contrast/Gastrografin was administered FINDINGS: Study is mildly degraded by photon starvation related to body habitus. LOWER THORAX: No consolidation or effusion. LIVER/BILIARY: No masses. No ductal dilatation. GALLBLADDER: Surgically absent SPLEEN: Unremarkable PANCREAS: Unremarkable ADRENALS: No nodules KIDNEYS: Symmetric perfusion. No enhancing masses. No hydronephrosis. GI TRACT/PERITONEUM/RETROPERITONEUM: Postsurgical changes status post partial gastric resection and gastrojejunostomy and repair of anastomotic leak. Stable hiatal hernia/gastric pouch within the lower thorax. No extravasation of oral contrast. Residual tract of gas and fluid is seen along the previous KANIKA drainage catheter site at the surgical bed extending in the right lower abdominal wall soft tissues to the skin surface. Trace additional gas and fluid and inflammatory changes along the anterior peritoneum, decreased from prior. VESSELS: Unremarkable LYMPH NODES: No lymphadenopathy REPRODUCTIVE ORGANS/BLADDER: Unremarkable SOFT TISSUES: Midline laparotomy changes with stable small midline fat-containing ventral hernia. Mild improvement in inflammatory changes/fluid and packed superficial skin defect over the right abdominal wall. BONES: No suspicious bone lesions. IMPRESSION: 1. Evolving/improving postsurgical changes status post partial gastric resection with gastrojejunostomy and repair. No contrast extravasation to suggest residual anastomotic leak. 2. Tract of gas and fluid along the previous KANIKA drainage site. No drainable collection. Signed by: Dr Alysia Rasheed MD on 10/26/2017 3:43 AM
[2017-10-26 04:19] VITALS: BP 108/54
== END 2017-10-26 04:31 | disposition home or self-care (01) ==
LOC: ER 00:19
DX: R50.9 Fever, unspecified (principal); Z48.01 Encounter for change or removal of surgical wound dressing; E03.9 Hypothyroidism, unspecified; K21.9 Gastro-esophageal reflux disease without esophagitis; Z98.84 Bariatric surgery status
CPT/HCPCS: 36415; 74177; 80053; 81001; 81025; 82150; 82550; 82553; 83605; 83690; 83735; 84484; 85025; 85610; 85730; 87040; 87071; 87086; 87205; 99284; J7030; Q9967

== ENCOUNTER 2017-11-22 19:29 | Inpatient (IN) | payer BC ==
[~2017-11-22] VITALS: Ht 167.6 cm; Wt 137.9 kg
[2017-11-22] MEDS ORDERED: IBUPROFEN 600 MG TAB ONE (20:15)
[2017-11-22] MEDS ORDERED: ACETAMINOPHEN 325 MG TAB PO ONE (20:30)
[2017-11-22 20:56] LABS: BASOPHILS # (AUTO) 0.1 (0.0-0.1); BASOPHILS % 0.5 % (0.0-1.0); EOSINOPHILS # (AUTO) 0.2 (0.0-0.4); HEMATOCRIT 33.5 % (34.2-44.1); HEMOGLOBIN 10.3 g/dL (12.0-16.0); LYMPHOCYTES # (AUTO) 3.9 (1.0-3.2); LYMPHOCYTES % 24.8 % (18.0-39.1); MEAN CORPUSCULAR HEMOGLOBIN 24.6 pg (28-32); MEAN CORPUSCULAR HGB CONC 30.7 g/dL (31-35); MEAN CORPUSCULAR VOLUME 80.1 fL (81-99); MONOCYTES # (AUTO) 1.2 (0.2-0.8); MONOCYTES % 7.8 % (4.4-11.3); NEUTROPHILS # (AUTO) 10.2 (2.1-6.9); NEUTROPHILS % 65.3 % (38.7-80.0); PLATELET COUNT 385 x10e3/uL (140-360); RED BLOOD COUNT 4.18 x10e6/uL (3.6-5.1); RED CELL DISTRIBUTION WIDTH 14.6 % (11.7-14.4)
[2017-11-22 21:14] LABS: ALANINE AMINOTRANSFERASE 18 IU/L (0-55); ALBUMIN/GLOBULIN RATIO 0.7 (0.8-2.0); ALKALINE PHOSPHATASE 85 IU/L (40-150); ANION GAP 15.6 mmol/L (8-16); BLOOD UREA NITROGEN < 5 mg/dL (7-26); CALCIUM 8.7 mg/dL (8.4-10.2); CARBON DIOXIDE 23 mmol/L (22-29); CHLORIDE 102 mmol/L (98-107); CREATININE, SERUM 0.56 mg/dL (0.57-1.11); EST GLOMERULAR FILTRATION RATE > 60 ML/MIN (60-); GLUCOSE 90 mg/dL (74-118); POTASSIUM 3.6 mmol/L (3.5-5.1); SODIUM 137 mmol/L (136-145)
[2017-11-22 21:15] LABS: BUN/CREATININE RATIO 9 (6-25)
--- NOTE | 2017-11-22 21:34 | Diagnostic Imaging Report ---
EXAM: CHEST 2 VIEWS, PA and lateral INDICATION: Fever, infection, abdominal wound COMPARISON: AP and lateral view of the chest October 05, 2017 FINDINGS: LINES/TUBES: None LUNGS: No consolidations or edema. PLEURA: No effusions or pneumothorax. HEART AND MEDIASTINUM: Normal size and contour. BONES AND SOFT TISSUES: No acute findings. IMPRESSION: No acute thoracic abnormality. Signed by: Dr. Isabel Hernandes M.D. on 11/22/2017 9:30 PM
[2017-11-22] MEDS ORDERED: DIATRIZOATE MEGL/DIATRIZOA SOD 30 ML BTL PO ONE (22:56)
[2017-11-22] MEDS ORDERED: SODIUM CHLORIDE 0.9% 1000ML 1,000 ML ONE (23:21)
[2017-11-22] MEDS ORDERED: SODIUM CHLORIDE 0.9% 50ML 50 ML ONE (23:25)
[2017-11-22] MEDS ORDERED: IOPAMIDOL 370 MG/ML 200 ML INFUS..BTL INJ ONE (23:27)
[2017-11-22] MEDS ORDERED: SODIUM CHLORIDE 0.9% 1000ML 1,000 ML IV STA (23:31)
[2017-11-23 00:36] LABS: BILIRUBIN,URINE NEGATIVE (NEGATIVE); CLARITY,URINE CLEAR (CLEAR); COLOR,URINE YELLOW (YELLOW); KETONES,URINE NEGATIVE (NEGATIVE); LEUKOCYTE ESTERASE ,URINE NEGATIVE (NEGATIVE); NITRITE,URINE NEGATIVE (NEGATIVE); PROTEIN,URINE DIPSTICK NEGATIVE (NEGATIVE); URINE UROBILINOGEN 0.2 mg/dL (0.2 - 1)
--- NOTE | 2017-11-23 00:44 | Diagnostic Imaging Report ---
EXAM: CT ABDOMEN AND PELVIS with IV CONTRAST DATE: 11/22/2017 10:47 PM Time stamp on Exam: 0001 hours INDICATION: Fever, draining abdominal wounds COMPARISON: CT of the abdomen and pelvis October 26, 2017 TECHNIQUE: The abdomen and pelvis were scanned using a multidetector helical scanner. Coronal and sagittal reformations were obtained. Dose modulation, iterative reconstruction, and/or weight based adjustment of the mA/kV was utilized to reduce the radiation dose to as low as reasonably achievable. Routine protocol performed. IV Contrast: 100 cc Isovue-370 Oral Contrast: Gastrografin FINDINGS: LOWER THORAX: No consolidations LIVER: No masses BILIARY: Cholecystectomy. No ductal dilation. SPLEEN: No masses PANCREAS: No masses ADRENALS: No nodules KIDNEYS: Symmetric perfusion. No enhancing masses. No hydronephrosis. GI TRACT: Stable hiatal hernia/gastric pouch within the lower thorax. Surgical changes of partial gastrectomy and gastrojejunostomy and repair of anastomotic leak. Extending along the upper anterior midline incision is an approximately 10 cm (craniocaudal dimension) x 4 cm (AP dimension) abscess containing fluid and air that extends to the skin and intraperitoneal. Additional linear tracks of fluid and air in the right lower quadrant, one at site of prior surgical drain and the other more superior medially with additional strands of inflammation throughout the subcutaneous tissues. No bowel obstruction. Normal appendix. VESSELS: Unremarkable PERITONEUM/RETROPERITONEUM: No free air or fluid LYMPH NODES: No lymphadenopathy REPRODUCTIVE ORGANS: Unremarkable BLADDER: Unremarkable SOFT TISSUES: As above BONES: No suspicious bone lesions. IMPRESSION: Surgical changes of partial gastrectomy and gastrojejunostomy and prior repair of anastomotic leak. Interval development of an abscess running along the upper anterior abdominal wall and extending both intraperitoneally and to the skin surface. Fistulous communication with underlying transverse colon is a possibility. Additional sites of skin to peritoneum tracts containing fluid and air are in the right lower quadrant which may be from placement of prior surgical drain and incision or fistulous communications. Signed by: Dr. Isabel Hernandes M.D. on 11/23/2017 12:41 AM
[2017-11-23 00:53] LABS: BACTERIA,URINE RARE /HPF; EPITHELIAL CELLS,URINE FEW /LPF; RBC,URINE >50 /HPF (0-5)
[2017-11-23] MEDS ORDERED: MORPHINE SULFATE 2 MG/ML SYR IV PRN (01:45)
[2017-11-23] MEDS ORDERED: PIPER-TAZ 3.375 GM 50 ML IV SCH ×3 (02:00→08:00)
[2017-11-23] MEDS: VANCOMYCIN 1GM/NS 250 ML 250 ML IV SCH ×2 (02:29→13:10)
[2017-11-23 02:45] VITALS: BP 115/56
[2017-11-23] MEDS: SODIUM CHLORIDE 0.9% 1000ML 1,000 ML IV SCH ×3 (05:33→17:34)
[2017-11-23 08:08] VITALS: BP 108/59
[2017-11-23] MEDS ORDERED: FLUCONAZOLE 100 MG TAB PO SCH (09:00)
[2017-11-23] MEDS ORDERED: MIDAZOLAM HCL 2 MG/2 ML VIAL ONE (09:51)
[2017-11-23] MEDS ORDERED: FENTANYL CITRATE/PF 100MCG/2 ML INJ ONE (09:51)
[2017-11-23] MEDS ORDERED: SODIUM CHLORIDE 0.9% 500ML 500 ML ONE (09:52)
[2017-11-23] MEDS: FLUCONAZOLE 100 MG/NS 50 ML 50 ML IV SCH (12:26)
[2017-11-23 12:34] VITALS: BP 135/85
[2017-11-23] MEDS ORDERED: MORPHINE SULFATE INJ 4 MG/ML INJ IV PRN (12:45)
--- NOTE | 2017-11-23 13:08 | Consultation ---
DATE OF CONSULTATION: November 23, 2017 REASON FOR CONSULTATION: Intra-abdominal abscess. HISTORY OF PRESENT ILLNESS: This patient is known to me from before. The patient is a 36-year-old, morbidly obese patient. She was in [place] back in August. She had gastric bypass, which was complicated with infection and bile leak. The patient came here. She had multiple intra-abdominal abscesses. Patient was treated with IV antibiotic. The patient, after a prolonged stay and improvement, was discharged home with doxycycline and Cipro for 3 weeks. She never followed up. The patient was on doxycycline, Cipro and Flagyl. She is coming now with fever and chills. CAT scan of the abdomen and pelvis was done and showed that she had abscesses running along the upper anterior abdominal wall and extending both intraperitoneally to the skin surface. Fistulous communication to the colon is possible. Patient is being admitted, and infectious disease was consulted. Surgery was consulted. PHYSICAL EXAMINATION GENERAL: She is currently alert and oriented, does not seem to be in acute distress. VITALS: Stable, afebrile. HEENT: She is not icteric. NECK: Supple. CHEST: Clear. HEART: S1, S2. No murmur. ABDOMEN: Soft. A drain has been placed already. IMPRESSION 1. Intra-abdominal abscess, drained. Agree with meropenem and vancomycin, wound cultures and surgical evaluation. Concern about fistula. 2. Obesity. 3. Will follow. Job#: [id number]
[2017-11-23] MEDS: ACETAMINOPHEN 325 MG TAB PO PRN (13:10)
--- NOTE | 2017-11-23 13:51 | Diagnostic Imaging Report ---
EXAMINATION: CT drainage of an anterior abdominal wall abscess. TECHNIQUE: Spiral CT images of the abdomen and pelvis were performed from the mid abdomen to pelvic inlet. Coronal and sagittal reformatted images were obtained. Dose reduction parameters were utilized. DLP: 2210.75 mGy-cm COMPARISON: 11/22/2017 CT abdomen and pelvis CLINICAL HISTORY: Gastric bypass complicated by suture anastomotic breakdown and abdominal abscess. SEDATION: Patient received a total of 2 mg of Versed and 50 mcg of Fentanyl in incremental fashion. Total sedation time was 30 minutes. She was continuously monitored throughout and following the procedure. DISCUSSION: Anterior abdominal wall abscess with possible intra-abdominal extension was localized utilizing CT scanning. Sterile preparation was accomplished and local anesthesia with 1% Xylocaine. An 18-gauge 10 cm long Chiba needle was then placed into the collection revealing for purulent material. This was followed by a 0.035 " Amplatz superstiff wire. Dilatation with an 8 Malian dilator was accomplished. An 8 Malian all-purpose drainage Puposky loop locking catheter was placed into the abscess. Approximately 10 cc of purulent material was drained. Patient tolerated the procedure well. Catheter was secured to the skin with 3-0 Ethilon. IMPRESSION: CT guidance for abdominal abscess drainage. Signed by: Dr. Blu Riley DO on 11/23/2017 1:48 PM
[2017-11-23 17:02] VITALS: BP 110/63
[2017-11-23] MEDS: PIPER-TAZ 3.375 GM 50 ML IV SCH ×2 (17:34→23:00)
--- NOTE | 2017-11-23 19:02 | Diagnostic Imaging Report ---
PROCEDURE:US GUIDANCE FOR VASCULAR ACCESS COMPARISON:None. INDICATIONS:Lack of IV access FINDINGS:Ultrasound evaluation of potential access sites was performed. After successfully identifying a patent vessel, US guidance was used to puncture the vein. A permanent recording was created for the patient record. CONCLUSION:Successful IV access by Ultrasound guidance. Mike Curry M.D. Dictated by: Mike Curry M.D. on 11/23/2017 at 17:37 Electronically approved by: Mike Curry M.D. on 11/23/2017 at 17:37
[2017-11-23 20:00] VITALS: BP 101/58
--- NOTE | 2017-11-23 20:56 | History and Physical ---
CHIEF COMPLAINT: Abdominal pain. HPI: Ms. Ayoub is a 36-year-old female who is well known to me from previous admission. Patient has a gastric bypass surgery, which was done in [place] and that resulted in abscess. She was here in September of 2017 where she was treated with IV antibiotics. Infectious disease was consulted and surgery was consulted. The patient underwent drainage of the abdominal abscess and felt better. She reports that she is on IV antibiotics and is following up with Dr. Cruz and getting IV antibiotics; however; yesterday she felt bad and she was having abdominal discomfort, so she decided to come to the emergency room. In the emergency room, patient's white count was 15,000, and CT of the abdomen and pelvis was done, which showed interval development of an abscess running along the upper anterior abdominal wall and extending both intraperitoneally and to the skin surface, fistulous communication with underlying transverse colon is a possibility. Dr. Cruz was consulted. He evaluated the patient, recommended interventional radiology drainage, which was done. Patient underwent drainage with IR, and now she is back in the room. REVIEW OF SYSTEMS: GENERAL: Denies any fever or chills. HEAD: Denies any head trauma. ENT: Denies any earache. CVS: Denies any chest pain. RESPIRATORY: Denies any shortness of breath. The rest of the review of systems are negative except as in HPI. PAST MEDICAL HISTORY: Obesity. PAST SURGICAL HISTORY: Gastric bypass surgery. FAMILY AND SOCIAL HISTORY: Does not smoke, does not drink. She works as an RN. PHYSICAL EXAMINATION: VITAL SIGNS: Temperature 97.7, pulse of 73, blood pressure 110/63, T-max of 102. HEENT: Head atraumatic, normocephalic. NECK: Supple. CHEST: Clear to auscultation bilaterally. ABDOMEN: She has 2 abdominal wounds and a drain. Wound site is dressed. NEUROLOGICAL: She is awake and alert EXTREMITIES: No pedal edema. LABS: White count of 15,000; hemoglobin 10.3; platelets 385,000. Chemistry is within normal limits. Wound cultures have been pending, it has been sent. ASSESSMENT: Jazmyne Ayoub is a 36-year-old female, status post gastric bypass surgery beginning September, resulting in complication with intra-abdominal abscess and infection. Patient underwent surgery and drainage during last admission, has been following up with Dr. Cruz and she is on intravenous antibiotics. CURRENT PROBLEMS: 1. Development of intra-abdominal abscess, status post drainage by interventional radiology. 2. Status post gastric bypass surgery. 3. Obesity. PLAN: I will continue the patient on IV antibiotics as recommended by Dr. Mackenzie. Follow the cultures. Follow Dr. Cruz's and Dr. Mackenzie's recommendations. Job#: [id number]
--- NOTE | 2017-11-23 21:54 | Consultation ---
DATE OF CONSULTATION: November 23, 2017 CHIEF COMPLAINT: Fevers. HISTORY OF PRESENT ILLNESS: The patient is a 36-year-old female, known to me from history of bariatric surgery complicated by anastomotic break down and patient underwent emergency repair approximately a month ago. The patient has been doing well with the recent complaint of fever of 102. She denies nausea and vomiting. PAST MEDICAL HISTORY: As mentioned is noted for morbid obesity, hiatal hernia with GERD. SURGICAL HISTORY: Positive for sleeve gastrectomy 5 years ago and recent repair of anastomotic [place] approximately a [place] ago. ALLERGIES: TO LATEX. SOCIAL HABITS: No smoking or alcohol abuse. REVIEW OF SYSTEMS: She denied chest pain or shortness of breath. PHYSICAL EXAMINATION: VITAL SIGNS: Stable. She had temperature of 102 in the ER. She is otherwise stable. GENERAL: Awake, alert, in mild to moderate discomfort. HEENT: Sclerae anicteric. NECK: Supple. LUNGS: Clear. HEART: Regular rate and rhythm. ABDOMEN: Soft. There is some guarding tenderness in the epigastrium. Incision is clean. There is no purulent drainage from incisions. EXTREMITIES: Without cyanosis or edema. LABS: White cell count of 15,000, hemoglobin of 10. Creatinine of 0.6. Albumin of 3.0. CT of the abdomen had shown an abscess formation along the anterior abdominal wall extending intraperitoneally. Possible fistula to underlie transverse colon. ASSESSMENT: Intra-abdominal wall abscess. PLAN: Percutaneous drainage by interventional radiology. Antibiotic has been initiated. Diet as tolerated. Will follow patient. Thank you. Job#: [id number]
[2017-11-24] VITALS (8 sets, daily range): BP systolic 103–131; BP diastolic 59–92
[2017-11-24] MEDS: VANCOMYCIN 1GM/NS 250 ML 250 ML IV SCH ×2 (00:55→13:00)
[2017-11-24] MEDS: PIPER-TAZ 3.375 GM 50 ML IV SCH ×4 (04:56→23:45)
[2017-11-24 05:39] LABS: BASOPHILS # (AUTO) 0.1 (0.0-0.1); BASOPHILS % 0.4 % (0.0-1.0); EOSINOPHILS # (AUTO) 0.4 (0.0-0.4); EOSINOPHILS % 3.3 % (0.0-6.0); HEMATOCRIT 30.2 % (34.2-44.1); HEMOGLOBIN 9.3 g/dL (12.0-16.0); LYMPHOCYTES # (AUTO) 2.8 (1.0-3.2); LYMPHOCYTES % 25.3 % (18.0-39.1); MEAN CORPUSCULAR HEMOGLOBIN 24.9 pg (28-32); MEAN CORPUSCULAR HGB CONC 30.8 g/dL (31-35); MONOCYTES # (AUTO) 0.7 (0.2-0.8); MONOCYTES % 6.4 % (4.4-11.3); NEUTROPHILS # (AUTO) 7.2 (2.1-6.9); NEUTROPHILS % 64.2 % (38.7-80.0); PLATELET COUNT 321 x10e3/uL (140-360); RED BLOOD COUNT 3.73 x10e6/uL (3.6-5.1); RED CELL DISTRIBUTION WIDTH 14.6 % (11.7-14.4)
[2017-11-24 06:11] LABS: ANION GAP 13.3 mmol/L (8-16); BLOOD UREA NITROGEN < 5 mg/dL (7-26); BUN/CREATININE RATIO 8 (6-25); CALCIUM 8.5 mg/dL (8.4-10.2); CARBON DIOXIDE 23 mmol/L (22-29); CHLORIDE 107 mmol/L (98-107); EST GLOMERULAR FILTRATION RATE > 60 ML/MIN (60-); GLUCOSE 88 mg/dL (74-118); POTASSIUM 3.3 mmol/L (3.5-5.1); SODIUM 140 mmol/L (136-145)
[2017-11-24] MEDS: ONDANSETRON HCL INJ 2 MG/ML VIAL IV PRN ×4 (08:29→22:25)
[2017-11-24] MEDS ORDERED: SODIUM CHLORIDE 0.9% 250ML 250 ML ONE (11:14)
[2017-11-24] MEDS: FLUCONAZOLE 100 MG/NS 50 ML 50 ML IV SCH (12:00)
[2017-11-24] MEDS: ACETAMINOPHEN 325 MG TAB PO PRN (13:01)
[2017-11-24] MEDS ORDERED: POTASSIUM CHLORIDE 20 MEQ TAB CR PO NR (20:45)
[2017-11-25] VITALS (7 sets, daily range): BP systolic 86–133; BP diastolic 55–99
[2017-11-25] MEDS: ACETAMINOPHEN 325 MG TAB PO PRN ×3 (00:26→19:09)
[2017-11-25] MEDS: VANCOMYCIN 1GM/NS 250 ML 250 ML IV SCH ×3 (01:20→13:43)
[2017-11-25] MEDS: PIPER-TAZ 3.375 GM 50 ML IV SCH ×2 (06:08→11:23)
[2017-11-25] MEDS: LEVOTHYROXINE SODIUM 100 MCG TAB PO SCH (06:08)
[2017-11-25] MEDS: ONDANSETRON HCL INJ 2 MG/ML VIAL IV PRN ×2 (11:25→18:50)
[2017-11-25] MEDS: FLUCONAZOLE 100 MG/NS 50 ML 50 ML IV SCH (12:03)
[2017-11-25] MEDS ORDERED: ERTAPENEM 1GM/NS 100ML 100 ML IV SCH (16:45)
--- NOTE | 2017-11-25 17:26 | Progress Note ---
DATE: INFECTIOUS DISEASE PROGRESS NOTE SUBJECTIVE: Ms. Ayoub is complaining of nausea. The drainage is serosanguineous. No other complaints. PHYSICAL EXAMINATION GENERAL: She is alert, oriented, does not seem to be in acute distress. VITAL SIGNS: Stable. Afebrile. HEENT: She does not appear icteric. NECK: Supple. CHEST: Clear. HEART: S1 and S2. No S3 or S4, no murmur. ABDOMEN: Soft. IMPRESSION 1. Intra-abdominal abscess drained. Morbidly obese patient. Will change her to Invanz 1 g a day. 2. Nausea. Continue Zofran. Will follow. Job#: [id number]
[2017-11-25] MEDS ORDERED: ERTAPENEM 1 GM VIAL IV SCH (17:30)
[2017-11-26 00:56] VITALS: BP 112/55
[2017-11-26] MEDS: ONDANSETRON HCL INJ 2 MG/ML VIAL IV PRN ×2 (00:59→07:18)
[2017-11-26 06:26] VITALS: BP 115/61
[2017-11-26] MEDS: LEVOTHYROXINE SODIUM 100 MCG TAB PO SCH (06:31)
[2017-11-26 08:15] VITALS: BP 131/77
[2017-11-26] MEDS: PANTOPRAZOLE SOD 40 MG TABEC PO SCH (08:53)
[2017-11-26 11:54] VITALS: BP 128/73
[2017-11-26] MEDS ORDERED: VANCOMYCIN 1GM/NS 250 ML 250 ML IV SCH (14:00)
[2017-11-26] MEDS: ACETAMINOPHEN 325 MG TAB PO PRN ×2 (16:53→23:15)
[2017-11-26 17:15] VITALS: BP 125/65
[2017-11-26] MEDS ORDERED: ERTAPENEM 1GM/NS 100ML 100 ML IV SCH (17:30)
[2017-11-26 20:00] VITALS: BP 111/71
[2017-11-26] MEDS: HEPARIN SOD (PORCINE) 5,000 UNIT/ML VIAL SC SCH (21:33)
[2017-11-27] VITALS (8 sets, daily range): BP systolic 117–152; BP diastolic 80–87
[2017-11-27] MEDS: ONDANSETRON HCL 4 MG ORAL DISINTEGRATING TAB PO PRN ×2 (00:09→06:10)
--- NOTE | 2017-11-27 00:35 | Diagnostic Imaging Report ---
EXAM: CHEST XRAY LINE PLACEMENT, AP 1 view INDICATION: PICC placement COMPARISON: None available at this time FINDINGS: LINES/TUBES: Distal aspect of left approach PICC terminates in expected location of the atriocaval junction. LUNGS: No consolidations or edema. PLEURA: No effusions or pneumothorax. HEART AND MEDIASTINUM: Normal size and contour. BONES AND SOFT TISSUES: Hiatal hernia. IMPRESSION: Distal aspect of left approach PICC terminates in expected location of the atriocaval junction. Signed by: Dr. Isabel Hernandes M.D. on 11/27/2017 12:31 AM
[2017-11-27] MEDS ORDERED: SODIUM CHLORIDE 0.9% 250ML 250 ML ONE (01:09)
[2017-11-27] MEDS: LEVOTHYROXINE SODIUM 100 MCG TAB PO SCH (05:59)
[2017-11-27] MEDS: PANTOPRAZOLE SOD 40 MG TABEC PO SCH ×3 (05:59→17:01)
[2017-11-27 06:08] LABS: BASOPHILS # (AUTO) 0.1 (0.0-0.1); BASOPHILS % 0.4 % (0.0-1.0); EOSINOPHILS # (AUTO) 0.2 (0.0-0.4); EOSINOPHILS % 1.2 % (0.0-6.0); HEMOGLOBIN 9.3 g/dL (12.0-16.0); LYMPHOCYTES # (AUTO) 2.3 (1.0-3.2); LYMPHOCYTES % 17.3 % (18.0-39.1); MEAN CORPUSCULAR HEMOGLOBIN 24.7 pg (28-32); MEAN CORPUSCULAR VOLUME 79.6 fL (81-99); MONOCYTES # (AUTO) 0.9 (0.2-0.8); MONOCYTES % 6.4 % (4.4-11.3); NEUTROPHILS # (AUTO) 9.9 (2.1-6.9); NEUTROPHILS % 74.2 % (38.7-80.0); PLATELET COUNT 335 x10e3/uL (140-360); RED BLOOD COUNT 3.77 x10e6/uL (3.6-5.1); RED CELL DISTRIBUTION WIDTH 14.6 % (11.7-14.4)
[2017-11-27 06:32] LABS: ANION GAP 14.5 mmol/L (8-16); CALCIUM 8.1 mg/dL (8.4-10.2); CREATININE, SERUM 1.68 mg/dL (0.57-1.11); POTASSIUM 3.5 mmol/L (3.5-5.1)
[2017-11-27] MEDS ORDERED: PANTOPRAZOLE SOD 40 MG TABEC PO SCH (07:30)
[2017-11-27] MEDS: ACETAMINOPHEN 325 MG TAB PO PRN ×2 (07:50→14:54)
[2017-11-27] MEDS ORDERED: ERTAPENEM 1GM/NS 100ML 100 ML IV SCH ×2 (09:00→10:30)
[2017-11-27] MEDS ORDERED: CIPROFLOXACIN 500 MG TAB PO SCH (09:00)
[2017-11-27] MEDS: HEPARIN SOD (PORCINE) 5,000 UNIT/ML VIAL SC SCH ×2 (09:30→21:45)
[2017-11-27] MEDS ORDERED: DIATRIZOATE MEGL/DIATRIZOA SOD 30 ML BTL PO ONE (09:57)
[2017-11-27] MEDS: ONDANSETRON HCL INJ 2 MG/ML VIAL IV PRN (10:36)
--- NOTE | 2017-11-27 13:35 | Diagnostic Imaging Report ---
EXAM: CT Abdomen and Pelvis WITHOUT contrast INDICATION: \S\fever oral contrast \[id number] \S\1100 COMPARISON: CT abdomen and pelvis 11/22/2017, drainage of abdominal fluid/abscess 11/23/2017 TECHNIQUE: Abdomen and pelvis were scanned utilizing a multidetector helical scanner from the lung base to the pubic symphysis without administration of IV contrast. Absence of intravenous contrast decreases sensitivity for detection of focal lesions and vascular pathology. Coronal and sagittal reformations were obtained. Routine protocol was performed. IV CONTRAST: None. ORAL CONTRAST: Gastrografin RADIATION DOSE: Total DLP: 1283 mGy*cm Estimated effective dose: (DLP x 0.015 x size factor) mSv COMPLICATIONS: None FINDINGS: LINES and TUBES: Anterior abdominal approach drainage catheter. LOWER THORAX: Trace left pleural effusion, new since CT abdomen and pelvis from 11/23/2017. Trace pericardial effusion. LIVER: No masses BILIARY: Cholecystectomy. No ductal dilation. SPLEEN: No masses PANCREAS: No masses ADRENALS: No nodules KIDNEYS: Symmetric perfusion. No enhancing masses. No hydronephrosis. GI TRACT: Stable hiatal hernia/gastric pouch within the lower thorax. Surgical changes of partial gastrectomy and gastrojejunostomy and repair of anastomotic leak, unchanged. Interval resolution of the the upper anterior midline incision abscess after drainage catheter placement. Tiny fistulous track containing soft tissue density and few foci of air is still present (series 2, image 26). Near resolution of the additional abscess in the right lower quadrant abdominal wall with a still residual small skin to peritoneum tracts containing mild soft tissue density and few foci of air on series 2, image 37. Additional linear tracks of fluid and air in the right lower quadrant, has nearly resolved (series 2, image 44). No bowel obstruction. Normal appendix. VESSELS: Unremarkable PERITONEUM/RETROPERITONEUM: No free air or fluid LYMPH NODES: No lymphadenopathy REPRODUCTIVE ORGANS: Unremarkable. Bilateral tubal ligation. BLADDER: Unremarkable SOFT TISSUES: As above BONES: No suspicious bone lesions. IMPRESSION: Surgical changes of partial gastrectomy and gastrojejunostomy and prior repair of anastomotic leak. Interval near resolution of the anterior abdominal abscess, with drainage catheter in place. Tiny fistulous track containing soft tissue density and few foci of air is still present Near resolution of the additional abscess in the right lower quadrant abdominal wall with a still residual small skin to peritoneum tracts containing mild soft tissue density and few foci of air. Signed by: Dr. Melissa Guardado M.D. on 11/27/2017 1:31 PM
[2017-11-27] MEDS: D5NS/KCL 20MEQ 1,000 ML IV SCH (14:54)
[2017-11-27] MEDS: PROMETHAZINE HCL 25 MG TAB PO PRN ×2 (15:00→21:45)
[2017-11-28] VITALS (9 sets, daily range): BP systolic 114–138; BP diastolic 75–86
[2017-11-28] MEDS: ERTAPENEM 1GM/NS 100ML 100 ML IV SCH (00:25)
[2017-11-28] MEDS: ACETAMINOPHEN 325 MG TAB PO PRN ×3 (00:25→20:44)
[2017-11-28] MEDS ORDERED: ERTAPENEM 1GM/NS 100ML 100 ML IV SCH (01:00)
[2017-11-28] MEDS: D5NS/KCL 20MEQ 1,000 ML IV SCH (04:31)
[2017-11-28] MEDS: LEVOTHYROXINE SODIUM 100 MCG TAB PO SCH (06:02)
[2017-11-28 06:32] LABS: ANION GAP 11.9 mmol/L (8-16); CREATININE, SERUM 1.55 mg/dL (0.57-1.11); POTASSIUM 4.9 mmol/L (3.5-5.1)
[2017-11-28] MEDS ORDERED: DEXTROSE 50% SYRINGE 50 ML IV PRN (07:00)
[2017-11-28] MEDS: SODIUM CHLORIDE 0.9% 1000ML 1,000 ML IV SCH ×3 (07:16→23:36)
[2017-11-28] MEDS: INSULIN LISPRO 100 UNIT/1 ML 3ML VIAL SQ SCH ×3 (07:30→16:19)
[2017-11-28] MEDS: PANTOPRAZOLE SOD 40 MG TABEC PO SCH ×2 (08:27→16:31)
[2017-11-28] MEDS: HEPARIN SOD (PORCINE) 5,000 UNIT/ML VIAL SC SCH ×2 (08:29→20:44)
[2017-11-28] MEDS: ONDANSETRON HCL 4 MG ORAL DISINTEGRATING TAB PO PRN ×2 (10:10→16:31)
[2017-11-29] VITALS: BP 126/94
[2017-11-29] MEDS: ERTAPENEM 1GM/NS 100ML 100 ML IV SCH (00:36)
[2017-11-29 04:00] VITALS: BP 167/74
[2017-11-29 06:16] LABS: BASOPHILS # (AUTO) 0.1 (0.0-0.1); BASOPHILS % 0.5 % (0.0-1.0); EOSINOPHILS # (AUTO) 0.3 (0.0-0.4); EOSINOPHILS % 2.2 % (0.0-6.0); HEMATOCRIT 27.2 % (34.2-44.1); HEMOGLOBIN 8.4 g/dL (12.0-16.0); LYMPHOCYTES # (AUTO) 1.8 (1.0-3.2); LYMPHOCYTES % 15.1 % (18.0-39.1); MEAN CORPUSCULAR HEMOGLOBIN 24.8 pg (28-32); MEAN CORPUSCULAR HGB CONC 30.9 g/dL (31-35); MEAN CORPUSCULAR VOLUME 80.2 fL (81-99); MONOCYTES # (AUTO) 0.9 (0.2-0.8); MONOCYTES % 7.1 % (4.4-11.3); NEUTROPHILS # (AUTO) 9.1 (2.1-6.9); NEUTROPHILS % 74.4 % (38.7-80.0); PLATELET COUNT 301 x10e3/uL (140-360); RED BLOOD COUNT 3.39 x10e6/uL (3.6-5.1); RED CELL DISTRIBUTION WIDTH 14.9 % (11.7-14.4)
[2017-11-29 06:31] LABS: ANION GAP 12.5 mmol/L (8-16); CALCIUM 7.9 mg/dL (8.4-10.2); CREATININE, SERUM 1.36 mg/dL (0.57-1.11); POTASSIUM 3.5 mmol/L (3.5-5.1)
[2017-11-29] MEDS: LEVOTHYROXINE SODIUM 100 MCG TAB PO SCH (06:40)
[2017-11-29 08:58] VITALS: BP 134/83
[2017-11-29] MEDS: PANTOPRAZOLE SOD 40 MG TABEC PO SCH ×2 (09:00→17:00)
[2017-11-29] MEDS: HEPARIN SOD (PORCINE) 5,000 UNIT/ML VIAL SC SCH ×2 (09:00→20:42)
[2017-11-29 09:37] LABS: BILIRUBIN,URINE NEGATIVE (NEGATIVE); CLARITY,URINE SL CLOUDY (CLEAR); COLOR,URINE YELLOW (YELLOW); KETONES,URINE TRACE (NEGATIVE); LEUKOCYTE ESTERASE ,URINE TRACE (NEGATIVE); NITRITE,URINE NEGATIVE (NEGATIVE); PROTEIN,URINE DIPSTICK NEGATIVE (NEGATIVE); URINE UROBILINOGEN 0.2 mg/dL (0.2 - 1)
[2017-11-29 09:50] LABS: BACTERIA,URINE FEW /HPF; EPITHELIAL CELLS,URINE MODERATE /LPF; RBC,URINE 0-5 /HPF (0-5)
[2017-11-29] MEDS: SODIUM CHLORIDE 0.9% 1000ML 1,000 ML IV SCH ×2 (10:00→15:52)
[2017-11-29 12:17] VITALS: BP 134/83
[2017-11-29] MEDS ORDERED: SODIUM CHLORIDE 0.9% 500ML 500 ML ONE (12:58)
[2017-11-29] MEDS ORDERED: LIDOCAINE HCL 2% LOCAL 20 ML VIAL ONE (13:03)
[2017-11-29] MEDS: ONDANSETRON HCL 4 MG ORAL DISINTEGRATING TAB PO PRN (14:35)
--- NOTE | 2017-11-29 14:35 | Diagnostic Imaging Report ---
Date and Time: Procedure: 411 directory assistance operator: Assistants: Staff: Pre-operative diagnosis: Abdominal wall abscess, concern for enterocutaneous fistula Post-operative diagnosis: Abdominal wall abscess Conscious Sedation: None The patient's heart rate and pulse oximetry were continuously monitored by the interventional radiology nurse. Blood pressure was monitored at 5 minute intervals. Additional Medications: None Fluoroscopy time: 1.6 minutes Dose-area Product: 1410.5 cGycm2 Contrast used: 20 cc dilute Isovue-300 Estimated blood loss: None Specimens: None Implants: None Blood products administered: None Condition at completion: Stable Disposition: Returned to floor DISCUSSION: Informed consent was obtained and documented in the medical record. The patient was placed in the supine position on the angiographic table. The existing midline abdominal drainage catheter and adjacent small stomas along the right mid abdomen were prepped and draped in the standard sterile fashion. Attention was first turned to the smallest most inferior skin defect in the right lower quadrant. A 5 Portuguese micropuncture sheath was gently advanced approximately 1 cm deep to the skin surface. A small amount of dilute contrast material was gently injected, showing no significant tract or fistulous communication with the underlying bowel. Attention was then turned to a slightly larger stoma superomedial to the first. The micropuncture sheath was then again gently advanced approximately 1 cm deep to the skin. A small amount of dilute contrast material was injected, showing no significant abscess cavity or fistulous communication with underlying bowel. Finally, approximately 10 cc dilute contrast material were gently injected through the indwelling drainage catheter, showing a small residual irregularly marginated collection adjacent to the locking loop of the catheter with thin foci of contrast tracking superolaterally, corresponding to the superolateral extent of the abdominal wall abscess on recent prior CT examinations. No fistulous communication with underlying bowel was identified on frontal or bilateral anterior oblique fluoroscopic imaging. The catheter was then flushed with sterile saline and connected to gravity drainage. New sterile dressings were applied. The patient tolerated the procedure well without immediate complication. IMPRESSION: No evidence of enterocutaneous fistula involving the midline abdominal wall abscess status post percutaneous drainage, or either of the 2 small right lower quadrant and right mid abdominal skin defects as described above. Signed by: Dr. Ramez Fine M.D. on 11/29/2017 2:32 PM
[2017-11-29 16:19] VITALS: BP 160/71
[2017-11-29 20:00] VITALS: BP 137/74
[2017-11-29] MEDS: ACETAMINOPHEN 325 MG TAB PO PRN (20:42)
[2017-11-30] VITALS (7 sets, daily range): BP systolic 113–161; BP diastolic 55–95
[2017-11-30] MEDS: ERTAPENEM 1GM/NS 100ML 100 ML IV SCH (00:20)
[2017-11-30] MEDS: ACETAMINOPHEN 325 MG TAB PO PRN ×3 (04:58→23:06)
[2017-11-30] MEDS: LEVOTHYROXINE SODIUM 100 MCG TAB PO SCH (05:05)
[2017-11-30] MEDS: PANTOPRAZOLE SOD 40 MG TABEC PO SCH ×2 (09:00→17:00)
[2017-11-30] MEDS: HEPARIN SOD (PORCINE) 5,000 UNIT/ML VIAL SC SCH ×2 (09:00→20:32)
[2017-11-30 14:02] LABS: BASOPHILS % 0.4 % (0.0-1.0); EOSINOPHILS # (AUTO) 0.3 (0.0-0.4); EOSINOPHILS % 3.2 % (0.0-6.0); HEMATOCRIT 24.9 % (34.2-44.1); HEMOGLOBIN 7.8 g/dL (12.0-16.0); LYMPHOCYTES # (AUTO) 1.6 (1.0-3.2); LYMPHOCYTES % 18.3 % (18.0-39.1); MEAN CORPUSCULAR HEMOGLOBIN 25.1 pg (28-32); MEAN CORPUSCULAR HGB CONC 31.3 g/dL (31-35); MEAN CORPUSCULAR VOLUME 80.1 fL (81-99); MONOCYTES # (AUTO) 0.7 (0.2-0.8); MONOCYTES % 8.2 % (4.4-11.3); NEUTROPHILS # (AUTO) 5.9 (2.1-6.9); NEUTROPHILS % 69.2 % (38.7-80.0); PLATELET COUNT 307 x10e3/uL (140-360); RED BLOOD COUNT 3.11 x10e6/uL (3.6-5.1); RED CELL DISTRIBUTION WIDTH 14.8 % (11.7-14.4)
[2017-11-30 14:24] LABS: ANION GAP 12.3 mmol/L (8-16); CALCIUM 7.8 mg/dL (8.4-10.2); CREATININE, SERUM 1.13 mg/dL (0.57-1.11); POTASSIUM 3.3 mmol/L (3.5-5.1)
[2017-11-30] MEDS ORDERED: SYNTHROID100 MCG PO (15:56)
[2017-11-30] MEDS: ONDANSETRON HCL INJ 2 MG/ML VIAL IV PRN (20:59)
[2017-12-01] VITALS: BP 151/78
[2017-12-01] MEDS: ERTAPENEM 1GM/NS 100ML 100 ML IV SCH (01:00)
[2017-12-01 04:00] VITALS: BP 151/83
[2017-12-01] MEDS: LEVOTHYROXINE SODIUM 100 MCG TAB PO SCH (05:39)
[2017-12-01] MEDS: PANTOPRAZOLE SOD 40 MG TABEC PO SCH (08:03)
[2017-12-01] MEDS: ACETAMINOPHEN 325 MG TAB PO PRN (08:03)
[2017-12-01 08:09] VITALS: BP 124/64
[2017-12-01] MEDS: HEPARIN SOD (PORCINE) 5,000 UNIT/ML VIAL SC SCH (09:00)
[2017-12-01 09:06] VITALS: BP 124/64
[2017-12-01 10:48] LABS: BASOPHILS # (AUTO) 0.1 (0.0-0.1); BASOPHILS % 0.6 % (0.0-1.0); EOSINOPHILS # (AUTO) 0.3 (0.0-0.4); EOSINOPHILS % 3.2 % (0.0-6.0); HEMATOCRIT 25.5 % (34.2-44.1); HEMOGLOBIN 7.8 g/dL (12.0-16.0); LYMPHOCYTES # (AUTO) 1.6 (1.0-3.2); LYMPHOCYTES % 19.7 % (18.0-39.1); MEAN CORPUSCULAR HEMOGLOBIN 24.8 pg (28-32); MEAN CORPUSCULAR HGB CONC 30.6 g/dL (31-35); MONOCYTES # (AUTO) 0.7 (0.2-0.8); MONOCYTES % 8.8 % (4.4-11.3); NEUTROPHILS # (AUTO) 5.6 (2.1-6.9); NEUTROPHILS % 67.2 % (38.7-80.0); PLATELET COUNT 312 x10e3/uL (140-360); RED BLOOD COUNT 3.15 x10e6/uL (3.6-5.1); RED CELL DISTRIBUTION WIDTH 14.9 % (11.7-14.4)
[2017-12-01 11:03] LABS: ANION GAP 10.3 mmol/L (8-16); BLOOD UREA NITROGEN < 5 mg/dL (7-26); CALCIUM 7.9 mg/dL (8.4-10.2); CARBON DIOXIDE 24 mmol/L (22-29); CHLORIDE 109 mmol/L (98-107); CREATININE, SERUM 1.06 mg/dL (0.57-1.11); EST GLOMERULAR FILTRATION RATE 59 ML/MIN (60-); GLUCOSE 96 mg/dL (74-118); POTASSIUM 3.3 mmol/L (3.5-5.1); SODIUM 140 mmol/L (136-145)
[2017-12-01 11:06] LABS: BUN/CREATININE RATIO 5 (6-25)
[2017-12-01 12:12] VITALS: BP 134/87
--- NOTE | 2017-12-01 15:08 | Discharge Summary ---
Patient of Dr. Vu, Dr. Cruz. Charming but unfortunate 36-year-old woman admitted to hospital on November 23, history of bariatric surgery complicated by anastomotic breakdown. She underwent emergency repair approximately a month ago. She was admitted with temperature of 102. She was found to have an abdominal abscess which was drained percutaneously. There was also a small fistula extending to the anterior abdominal wall apparently from the transverse colon. She was treated with Invanz, drainage gradually improved. Cultures grew Strep viridans and Citrobacter amalonaticus, treated with Invanz and gradually improved. There was apparent resistance to Levaquin. Patient was discharged, to continue IV antibiotic therapy as directed by Dr. Mackenzie. The choice of this therapy is unknown at this time. Follow up with Dr. Mackenzie and Dr. Cruz. Fistulogram on 11/29/2017 revealed no evidence of enterocutaneous fistula involving the midline abdominal wall. There were small skin defects, the abscesses apparently healed. In addition to IV antibiotics, the patient will continue her Protonix and Levoxyl 100 mcg a day. Blood sugar was labile. Patient wished to control this with diet, declined endocrinology opinion. She was also treated with vancomycin while in the hospital. Discharged much improved. Job#: [id number]
--- OUTSIDE RECORDS SUMMARY | 2017-12-28 04:57 | XMS REPORT | Clinical Summary ---
Author Author NOEMI [facility] Address Unknown Phone Unavailable Care Team Providers Care Placement Director Name Role Phone PCP Unavailable Allergies No Known Allergies Current Medications Prescription Sig. Disp. Refills Start End Date Status Date levothyroxine (SYNTHROID, Take 100 mcg by mouth Active LEVOTHROID) 100 MCG Every morning on an empty tablet stomach. cyanocobalamin (VITAMIN Take 1,000 mcg by mouth Active B-12) 1000 MCG tablet daily. iron Take by mouth daily. Active aspgly,[id number] 150-60-25-1 qv-bi-ydx-mg Cap per capsule clotrimazole-betamethason Apply topically 2 (two) 30 g 0 08/08/19 Active e (LOTRISONE) 1-0.05 % times daily. 18 19 cream Active Problems Problem Noted Date Hypothyroid 08/07/2017 Encounters Date Type Specialty Care Team Description 08/07/2017 Office Visit Obstetrics and Gynecology Everardo Ryan , DO Well woman exam with routine gynecological exam (Primary Dx);Urinary tract infection without hematuria, site unspecified after 11/21/2016 Family History Medical History Relation Name Comments Diabetes Father Hypertension Father Heart disease Mother Hypertension Mother Cervical cancer Sister Relation Name Status Comments Father Mother Sister Social History Tobacco Use Types Packs/Day Years Used Date Never Smoker Smokeless Tobacco: Never Used Alcohol Use Drinks/Week oz/Week Comments Yes Sex Assigned at Date Recorded Not on file Last Filed Vital Signs Vital Sign Reading Time Taken Blood Pressure 124/74 08/07/2017 9:15 AM CDT Pulse - - Temperature - - Respiratory Rate - - Oxygen Saturation - - Inhaled Oxygen - - Concentration Weight 138.5 kg (305 lb 6.4 oz) 08/07/2017 9:15 AM CDT Height 167.6 cm (5' 6") 08/07/2017 9:15 AM CDT Body Mass Index 49.29 08/07/2017 9:15 AM CDT Plan of Treatment Health Maintenance Due Date Last Done Comments INFLUENZA VACCINE 12/25/2017 Results * URINE CULTURE, ROUTINE ([facility] Only) (08/07/2017 9:44 AM) Component Value Ref Range Urine Culture, Routine Final report Result 1 Comment Comment: Mixed urogenital coty 25,000-50,000 colony forming units per mL Specimen Performing Laboratory Urine - Urine, Clean [facility] Catch Narrative Performed at:[address] [place], [place] [id number] Manager Night: Viktor Allen MD, Phone:[phone] * PAP IG, RFX HPV ASCU (08/07/2017 9:29 AM) Component Value Ref Range DIAGNOSIS: CommentComment: NEGATIVE FOR INTRAEPITHELIAL LESION AND MALIGNANCY. Specimen adequacy: Comment Comment: Satisfactory for evaluation. No endocervical component is identified. The absence of an endocervical component was confirmed by an additional screening evaluation. Diagnosis provided by: CommentComment: Z01.419 Performed by: CommentComment: Racheal Singleton, Laboratory Tech (ASCP) QC reviewed by: CommentComment: Deb Rushing, Supervisory Laboratory Tech (ASCP) . . Note: Comment Comment: The Pap smear is a screening test designed to aid in the detection of premalignant and malignant conditions of the uterine cervix. It is not a diagnostic procedure and should not be used as the sole means of detecting cervical cancer. Both false-positive and false-negative reports do occur. Test Methodology: Comment Comment: This liquid based ThinPrep(R) pap test was screened with the use of an image guided system. . Comment Comment: The HPV DNA reflex criteria were not met with this specimen result therefore, no HPV testing was performed. Specimen Performing Laboratory Cervical Cells - Cervix, [facility] Endocervical Narrative Specimen Comment: LMP / Prev Treat...[id number] Specimen Comment: No. of containers..01 ThinPrep Vial Performed at:[address] [place] [address] [facility], [id number] Manager Night: Marta Barnett MD, Phone:[phone] after 11/21/2016
--- OUTSIDE RECORDS SUMMARY | 2017-12-28 04:57 | XMS REPORT | Continuity of Care Document ---
Author Author [facility] Organization [facility] Address [address] [place] [address] Phone Unavailable Care Team Providers Care Sales Representative Business Courses Name Role Phone NONSTAFF PCP Unavailable Insurance Providers Guarantor Jazmyne Ayoub Address [address] [place] [address] Email [email or web address] Payer [facility] Ppo Policy Number [id number] Subscriber's Name PhilbernaJazmyne Relationship 18 Self / Same As Patient Group Number [id number] Group Name [facility] Effective Date 17 Advance Directives Directive Response Recorded Date/Time Does the patient have an advance directive? No 10/05/17 12:40pm If yes, is advance directive on file with [facility]? No 05/28/17 2:21pm If not on file with [facility] will patient provide a copy? Yes 10/26/17 4:48am Do you have a Directive to Physician? No 10/26/17 4:48am Do you have a Medical Power of Mill Operator? No 10/26/17 4:48am Do you have an out of hospital Do Not Resuscitate Order? No 10/26/17 4:48am Do you have any special needs we should be aware of? No 10/26/17 4:48am Do you have a support person here with you today? Yes 10/26/17 4:48am Did patient receive Notice of Privacy Practices? Yes 08/02/18 4:48am Did patient receive patient rights and responsibilities? Yes 10/26/17 4:48am Problems Medical Problem Onset Date Status Anastomotic leak of gastrojejunostomy Unknown Post-operative infection Unknown Sepsis Unknown Medications Current Home Medications Medication Dose Units Route Directions Days Qty Instructions Start Date Ciprofloxacin Hcl (Cipro) 500 Mg Tablet 500 Mg Oral Every 12 Hours 42 Tab Doxycycline Hyclate 100 Mg Capsule 100 Mg Oral Daily 42 Cap Metronidazole (Flagyl) 250 Mg Tablet 500 Mg Oral Every 8 Hours 63 Metronidazole (Flagyl) 500 Mg Tablet 500 Mg Oral Three Times A Day 60 Days 10/17/17 Pantoprazole Sodium (Protonix) 40 Mg Tablet. 1 Tab Oral Daily 30 Past Home Medications Medication Directions Ordered Status Levothyroxine Sodium 100 Mcg Tablet, 1 Tab Oral Daily Discontinued Social History Smoking Status Start Date Stop Date Never Smoker Hospital Discharge Instructions No hospital discharge instruction information available. Plan of Care Discharge Date 10/26/17 4:31am Disposition HOME, SELF-CARE Condition at Discharge Stable Instructions/Education Provided Wound Care (General) Forms Provided Work/School Excuse Prescriptions See Medication Section Additional Instructions/Education ALTERNATE TYLENOL AND MOTRIN DIRECTED FOR FEVER FOLLOW UP WITH DR. MELENDEZ TODAY Functional Status No functional status information available. Allergies, Adverse Reactions, Alerts Allergen Type Severity Reaction Status Last Updated Latex Allergy Mild SOMETIMES IRRITATED SKIN Active 10/05/17 Immunizations No immunization information available. Vital Signs Acute Vital Signs Vital Response Date/Time Temperature (Fahrenheit) 98.5 degrees F (97.6 - 99.5) 10/26/2017 4:19am Pulse Pulse Rate (adult) 84 bpm (60 - 90) 10/26/2017 4:19am Respiratory Rate 17 bpm (12 - 24) 10/26/2017 4:19am Blood Pressure 108/54 mm Hg 10/26/2017 4:19am Height 5 ft 6 in 10/26/2017 12:21am Weight 337 lb 10/26/2017 12:21am Body Mass Index 54.4 kg/m^2 10/26/2017 12:21am Results Laboratory Results Test Name Result Units Flags Reference Collection Date/Time Result Date/ Time Comments Differential Total Cells Counted 100 10/17/2017 5:37am 10/17/2017 7 :47am Neutrophils % (Manual) 73 % 40-74 10/17/2017 5:37am 10/17/2017 7:47am Band Neutrophils % 6 % 10/15/2017 10:17am 10/15/2017 11:36am Lymphocytes % (Manual) 19 % 19-48 10/17/2017 5:37am 10/17/2017 7:47am Monocytes % (Manual) 7 % 3.4-9.0 10/17/2017 5:37am 10/17/2017 7:47am Eosinophils % (Manual) 1 % 0-7 10/17/2017 5:37am 10/17/2017 7:47am Basophils % (Manual) 1 % 0-1.5 10/13/2017 4:35am 10/13/2017 7:30am Myelocytes % 2 % H 0-0 10/16/2017 6:33am 10/16/2017 9:50am Reactive Lymphocytes 1 10/13/2017 4:35am 10/13/2017 7:30am Platelet Estimate ADEQUATE 10/17/2017 5:37am 10/17/2017 7:47am Platelet Morphology Comment NORMAL 10/17/2017 5:37am 10/17/2017 7: 47am Hypochromasia SLIGHT 10/17/2017 5:37am 10/17/2017 7:47am Anisocytosis SLIGHT 10/17/2017 5:37am 10/17/2017 7:47am Stomatocytes SLIGHT 10/17/2017 5:37am 10/17/2017 7:47am Red Cell Morphology Comment NORMAL 10/17/2017 5:37am 10/17/2017 7: 47am D-Dimer Quantitative (PE/DVT) 2860 ng/mL H 0-400 10/05/2017 5:48am 10/05 6:15am As with all in vitro diagnostic tests, the test results should be interpreted by the physician in conjunction with clinical findings and other test results. Test results are reported in NEW D-dimer units(ug/mLFEU). Fibrinogen 616 mg/dL H 204-462 10/05/2017 5:48am 10/05/2017 6:01am Urine Transitional Epithelial Cells FEW H NONE 10/05/2017 1:28am 10/05 2:28am Urine Renal Epithelial Cells FEW H NONE 10/05/2017 1:28am 10/05/2017 2 :28am Urine Fine Granular Casts 1-5 H 0 10/05/2017 1:28am 10/05/2017 2:28am Bedside Glucose 99 mg/dL 70-120 10/14/2017 7:59pm 10/14/2017 8:06pm Meter ID: [id number] Free Thyroxine Index 2.0208 1.4-3.8 10/16/2017 6:00am 10/16/2017 10: 31am Thyroxine (T4) 7.60 ug/dL 4.5-10.9 10/16/2017 6:00am 10/16/2017 10: 31am Our current method for Total T4 is not recommended for use as the only marker for evaluating patients for thyroid disorders. Triiodothyronine (T3) Uptake 26.59 % 22.5-37.0 10/16/2017 6:00am 2017 10:31am Thyroid Stimulating Hormone (TSH) 3.986 uIU/mL 0.350-4.940 10/16/2017 6: 00am 10/16/2017 10:31am Vancomycin Level Trough 5.7 ug/mL 5.0-10.0 10/09/2017 9:20am 2017 9:41am Fibrin Degradation Products, Quant 5 ug/mL H <5 10/05/2017 5:48am 2017 7:21pm Performed at: [facility] [id number] Novelty Twister Operator: Ken Hudson MD, Phone: [phone] White Blood Count 12.79 x10e3/uL H 4.8-10.8 10/26/2017 12:30am 2017 12:47am Red Blood Count 4.26 x10e6/uL 3.6-5.1 10/26/2017 12:30am 10/26/2017 12: 47am Hemoglobin 10.9 g/dL L 12.0-16.0 10/26/2017 12:30am 10/26/2017 12:47am Hematocrit 34.4 % 34.2-44.1 10/26/2017 12:30am 10/26/2017 12:47am Mean Corpuscular Volume 80.8 fL L 81-99 10/26/2017 12:30am 10/26/2017 12 :47am Mean Corpuscular Hemoglobin 25.6 pg L 28-32 10/26/2017 12:30am 2017 12:47am Mean Corpuscular Hemoglobin Concent 31.7 g/dL 31-35 10/26/2017 12:30am 10/26/2017 12:47am Red Cell Distribution Width 15.6 % H 11.7-14.4 10/26/2017 12:30am 2017 12:47am Platelet Count 472 x10e3/uL H 140-360 10/26/2017 12:30am 10/26/2017 12: 47am Neutrophils (%) (Auto) 67.2 % 38.7-80.0 10/26/2017 12:30am 10/26/2017 12:47am Lymphocytes (%) (Auto) 22.2 % 18.0-39.1 10/26/2017 12:30am 10/26/2017 12:47am Monocytes (%) (Auto) 7.3 % 4.4-11.3 10/26/2017 12:30am 10/26/2017 12: 47am Eosinophils (%) (Auto) 2.3 % 0.0-6.0 10/26/2017 12:30am 10/26/2017 12: 47am Basophils (%) (Auto) 0.5 % 0.0-1.0 10/26/2017 12:30am 10/26/2017 12: 47am IM GRANULOCYTES % 0.5 % 0.0-1.0 10/26/2017 12:30am 10/26/2017 12:47am Neutrophils # (Auto) 8.6 H 2.1-6.9 10/26/2017 12:30am 10/26/2017 12: 47am Lymphocytes # (Auto) 2.8 1.0-3.2 10/26/2017 12:30am 10/26/2017 12: 47am Monocytes # (Auto) 0.9 H 0.2-0.8 10/26/2017 12:30am 10/26/2017 12: 47am Eosinophils # (Auto) 0.3 0.0-0.4 10/26/2017 12:30am 10/26/2017 12: 47am Basophils # (Auto) 0.1 0.0-0.1 10/26/2017 12:30am 10/26/2017 12:47am Absolute Immature Granulocyte (auto 0.06 x10e3/uL 0-0.1 10/26/2017 12: 30am 10/26/2017 12:47am Prothrombin Time 14.6 seconds H 11.9-14.5 10/26/2017 12:30am 10/26/2017 1:00am Prothromb Time International Ratio 1.23 10/26/2017 12:30am 2017 1:00am Oral Anticoagulant Therapy INR Values: 1. Low Intensity Therapy 1.5 - 2.0 2. Moderate Intensity Therapy 2.0 - 3.0 3. High Intensity Therapy(1) 2.5 - 3.5 4. High Intensity Therapy(2) 3.0 - 4.0 5. Panic Value INR > 5.0 Activated Partial Thromboplast Time 29.1 seconds 23.8-35.5 10/26/2017 12 :30am 10/26/2017 1:00am Urine Color YELLOW YELLOW 10/26/2017 12:30am 10/26/2017 1:48am Urine Clarity SL CLOUDY CLEAR 10/26/2017 12:30am 10/26/2017 1:48am Urine Specific [place] 1.010 1.010-1.025 10/26/2017 12:30am 2017 1:48am Urine pH 7 5 - 7 10/26/2017 12:30am 10/26/2017 1:48am Urine Leukocyte Esterase TRACE H NEGATIVE 10/26/2017 12:30am 2017 1:48am Urine Nitrite NEGATIVE NEGATIVE 10/26/2017 12:30am 10/26/2017 1:48am Urine Protein TRACE H NEGATIVE 10/26/2017 12:30am 10/26/2017 1:48am Urine Glucose (UA) NEGATIVE NEGATIVE 10/26/2017 12:30am 10/26/2017 1: 48am Urine Ketones NEGATIVE NEGATIVE 10/26/2017 12:30am 10/26/2017 1:48am Urine Urobilinogen 0.2 mg/dL 0.2 - 1 10/26/2017 12:30am 10/26/2017 1: 48am Urine Bilirubin NEGATIVE NEGATIVE 10/26/2017 12:30am 10/26/2017 1: 48am Urine Blood NEGATIVE NEGATIVE 10/26/2017 12:30am 10/26/2017 1:48am Urine WBC 0-5 /HPF 0-5 10/26/2017 12:30am 10/26/2017 2:00am Urine RBC 0-5 /HPF 0-5 10/26/2017 12:30am 10/26/2017 2:00am Urine Bacteria RARE /HPF NONE 10/26/2017 12:30am 10/26/2017 2:00am Urine Epithelial Cells FEW /LPF NONE 10/26/2017 12:30am 10/26/2017 2: 00am Urine Test NEGATIVE NEGATIVE 10/26/2017 12:30am 10/26/2017 1:48am Sodium Level 136 mmol/L 136-145 10/26/2017 1:30am 10/26/2017 2:14am Potassium Level 4.0 mmol/L 3.5-5.1 10/26/2017 1:30am 10/26/2017 2:14am Chloride Level 101 mmol/L 98-107 10/26/2017 1:30am 10/26/2017 2:14am Carbon Dioxide Level 24 mmol/L 22-29 10/26/2017 1:30am 10/26/2017 2: 14am Anion Gap 15.0 mmol/L 8-16 10/26/2017 1:30am 10/26/2017 2:14am Blood Urea Nitrogen < 5 mg/dL L 7-26 10/26/2017 1:30am 10/26/2017 2: 14am Creatinine 0.54 mg/dL L 0.57-1.11 10/26/2017 1:30am 10/26/2017 2:14am BUN/Creatinine Ratio 9 6-25 10/26/2017 1:30am 10/26/2017 2:14am Estimat Glomerular Filtration Rate > 60 ML/MIN 60- 10/26/2017 1:30am 2:14am Ranges were taken from the National Kidney Disease Education Program and the National Kidney Foundation literature. Reference ranges: 60 or greater: Normal 16-59 (for 3 consecutive months): Chronic kidney disease 15 or less: Kidney failure Glucose Level 99 mg/dL 74-118 10/26/2017 1:30am 10/26/2017 2:14am Calcium Level 8.6 mg/dL 8.4-10.2 10/26/2017 1:30am 10/26/2017 2:14am Lactic Acid Level 5.4 MG/DL 4.5-19.8 10/26/2017 1:30am 10/26/2017 2: 07am Magnesium Level 1.5 MG/DL 1.3-2.1 10/26/2017 1:30am 10/26/2017 2:14am Total Bilirubin 0.4 mg/dL 0.2-1.2 10/26/2017 1:30am 10/26/2017 2:14am Aspartate Amino Transf (AST/SGOT) 25 IU/L 5-34 10/26/2017 1:30am 2017 2:14am Alanine Aminotransferase (ALT/SGPT) 18 IU/L 0-55 10/26/2017 1:30am 04/2017 2:14am Total Protein 7.0 g/dL 6.5-8.1 10/26/2017 1:30am 10/26/2017 2:14am Albumin 2.9 g/dL L 3.5-5.0 10/26/2017 1:30am 10/26/2017 2:14am Globulin 4.1 g/dL H 2.3-3.5 10/26/2017 1:30am 10/26/2017 2:14am Albumin/Globulin Ratio 0.7 L 0.8-2.0 10/26/2017 1:30am 10/26/2017 2: 14am Alkaline Phosphatase 57 IU/L 40-150 10/26/2017 1:30am 10/26/2017 2: 14am Creatine Kinase 25 IU/L L 29-168 10/26/2017 1:30am 10/26/2017 2:14am Creatine Kinase MB 0.20 ng/mL 0-5.0 10/26/2017 1:30am 10/26/2017 2: 20am Troponin I 0.003 ng/mL 0-0.300 10/26/2017 1:30am 10/26/2017 2:20am Amylase Level 43 U/L 25-125 10/26/2017 1:30am 10/26/2017 2:14am Lipase 25 U/L 8-78 10/26/2017 1:30am 10/26/2017 2:14am Microbiology Results Procedure Source Organism/Result Collection Date/Time Result Date/Time Result Status Urine Culture Urine,Clean Catch CITROBACTER AMALONATICUS 10/05/2017 1:28am 10/07/2017 8:30am Final Blood Culture Blood NO GROWTH AFTER 5 DAYS, FINAL REPORT 10/12/2017 12: 15pm 10/17/2017 12:18pm Final Wound Culture Abdominal Fluid CAS ALBICANS 10/19/2017 10:25am 2017 5:55am Final Wound Culture Abdomen CAS ALBICANS 10/19/2017 10:25am 10/24/2017 6: 49am Final Procedures Procedure Status Date Provider(s) RPR S/N/AX/GEN/TRNK 2.5CM/< Completed 05/28/17 FARIDEH VIDES MD Diagnostic laparoscopy Completed 10/05/17 ANALIA MELENDEZ MD Exploratory laparotomy Completed 10/05/17 ANALIA MELENDEZ MD Computed tomography of abdomen and pelvis with contrast Active 10/05/17 SHASHI NOVAK MD X-ray of chest, two views Active 10/05/17 SHASHI NOVAK MD Computed tomography of abdomen and pelvis with contrast Active 10/11/17 ANALIA MELENDEZ MD Computed tomography of abdomen and pelvis with contrast Active 10/26/17 SHASHI NOVAK MD Encounters Encounter Location Arrival/Admit Date Discharge/Depart Date Attending Provider Departed Emergency Room [facility] 10/26/17 12:19am 10/26 4:31am SHASHI NOVAK MD Registered Clinic [facility] 10/19/17 2:38pm VENANCIO HUFF MD Discharged Inpatient [facility] 10/05/17 5:59am 10/17/17 3:24pm DAYNA DUENAS MD Departed Emergency Room [facility] 05/28/17 1:49pm 2:38pm FARIDEH VIDES MD
--- OUTSIDE RECORDS SUMMARY | 2017-12-28 04:59 | XMS REPORT | Clinical Summary ---
Author Author [facility] Address Unknown Phone Unavailable Care Team Providers Care Rug Receiving Clerk Name Role Phone PCP Unavailable Allergies No Known Allergies Current Medications Prescription Sig. Disp. Refills Start End Date Status Date levothyroxine (SYNTHROID, Take 100 mcg by mouth Active LEVOTHROID) 100 MCG Every morning on an empty tablet stomach. cyanocobalamin (VITAMIN Take 1,000 mcg by mouth Active B-12) 1000 MCG tablet daily. iron Take by mouth daily. Active aspgly,[id number] 150-60-25-1 lk-qj-yaz-mg Cap per capsule clotrimazole-betamethason Apply topically 2 (two) 30 g 0 08/08/19 Active e (LOTRISONE) 1-0.05 % times daily. 18 19 cream Active Problems Problem Noted Date Hypothyroid 08/07/2017 Encounters Date Type Specialty Care Team Description 08/07/2017 Office Visit Obstetrics and Gynecology Everardo Ryan , DO Well woman exam with routine gynecological exam (Primary Dx);Urinary tract infection without hematuria, site unspecified after 11/22/2016 Family History Medical History Relation Name Comments [...] - Urine, Clean [facility] Catch Narrative Performed at:[address] [place], [place] [id number] [employer] Machine Operator: Viktor Allen MD, Phone:[phone] * PAP IG, RFX HPV ASCU (08/07/2017 9:29 AM) Component Value Ref Range DIAGNOSIS: CommentComment: NEGATIVE FOR INTRAEPITHELIAL LESION AND MALIGNANCY. Specimen adequacy: Comment Comment: Satisfactory for evaluation. No endocervical component is identified. The absence of an endocervical component was confirmed by an additional screening evaluation. Diagnosis provided by: CommentComment: Z01.419 Performed by: CommentComment: Racheal Singleton, Extension Division Director (ASCP) QC reviewed by: CommentComment: Deb Rushing, Supervisory Extension Division Director (ASCP) . . Note: Comment Comment: The [...] Endocervical Narrative Specimen Comment: LMP / Prev Treat...SNP=[id number] Specimen Comment: No. of containers..01 ThinPrep Vial Performed at:[address] [place] [address] [address] [facility], [id number] [employer] Machine Operator: Marta Barnett MD, Phone:[phone] after 11/22/2016
== END 2017-12-01 12:19 | disposition home or self-care (01) | DRG 856 ==
LOC: ER 19:29 → ERHOLD 11-23 03:11 → MED/SURG3 11-23 03:13
PROVIDERS: ADMIT Internal Medicine; ATTEND Internal Medicine
PROC: 0W9F0ZX Drainage of Abdominal Wall, Open Approach, Diagnostic (ICD-10-PCS; 2017-11-23)
PROC: 02HV33Z Insertion of Infusion Device into Superior Vena Cava, Percutaneous Approach (ICD-10-PCS; principal; 2017-11-27)
PROC: BW111ZZ Fluoroscopy of Abdomen and Pelvis using Low Osmolar Contrast (ICD-10-PCS; 2017-11-29)
DX: T81.4XXA Infection following a procedure, initial encounter (principal); A41.9 Sepsis, unspecified organism; R65.20 Severe sepsis without septic shock; L02.91 Cutaneous abscess, unspecified; N17.9 Acute kidney failure, unspecified; Z68.42 Body mass index [BMI] 45.0-49.9, adult; B96.89 Other specified bacterial agents as the cause of diseases classified elsewhere; Z98.84 Bariatric surgery status; E66.01 Morbid (severe) obesity due to excess calories
CPT/HCPCS: 36415; 36569; 49406; 71045; 71046; 74176; 74177; 74470; 76080; 76937; 77001; 80048; 80053; 80202; 81001; 82044; 82948; 83605; 85025; 87040; 87070; 87086; 87186; 87205; 99152; 99153; 99284; C1729; C1769; J1335; J1450; J1644; J2001; J2250; J2405; J2543; J3370; J7030; J7040; J7050; Q9967

== ENCOUNTER → 2017-12-20 | Outpatient (CLI) | payer BC ==
[~2017-12-20] MED LIST changes: +SYNTHROID100 MCG PO
--- NOTE | 2017-12-20 10:30 | Diagnostic Imaging Report ---
EXAMINATION: CHEST XRAY LINE PLACEMENT INDICATION: CHECK PICC PALCEMENT COMPARISON: Chest x-ray 11/27/2017 FINDINGS: AP view TUBES and LINES: Right PICC line with tip at high SVC. LUNGS: Lungs are not well inflated. There are bibasilar atelectasis. There is no evidence of pneumonia or pulmonary edema. PLEURA: No pleural effusion or pneumothorax. HEART AND MEDIASTINUM: The cardiomediastinal silhouette is unremarkable. BONES AND SOFT TISSUES: No acute osseous lesion. Soft tissues are unremarkable. UPPER ABDOMEN: No free air under the diaphragm. IMPRESSION: Right PICC line with tip at high SVC. Signed by: Dr. Gui Minaya M.D. on 12/20/2017 10:27 AM
== END ==
LOC: DX 09:17
PROVIDERS: ATTEND Internal Medicine Infectious Disease
DX: L02.211 Cutaneous abscess of abdominal wall (principal)
CPT/HCPCS: 36569; 71045

== ENCOUNTER → 2018-01-09 | Outpatient (CLI) | payer BC ==
[~2018-01-09] MED LIST changes: +DIATRIZOATE MEGL/DIATRIZOA SOD 30 ML BTL PO ONE; +IOPAMIDOL 370 MG/ML 200 ML INFUS..BTL INJ ONE; +SODIUM CHLORIDE 0.9% 50ML 50 ML ONE
[2018-01-09 09:20] LABS: BLOOD UREA NITROGEN 6 mg/dL (7-26); BUN/CREATININE RATIO 11 (6-25); CREATININE, SERUM 0.57 mg/dL (0.57-1.11); EST GLOMERULAR FILTRATION RATE > 60 ML/MIN (60-)
--- NOTE | 2018-01-09 10:46 | Diagnostic Imaging Report ---
This report includes an Addendum and supersedes previous reports for this exam. PROCEDURE: CT ABDOMEN AND PELVIS WITH CONTRAST TECHNIQUE: The abdomen and pelvis were scanned utilizing a multidetector helical scanner from the diaphragm to the lesser trochanter after the IV administration of 100 cc of Isovue 370 and the oral administration of 900 cc of Gastrografin and water. Coronal and sagittal multiplanar reformations were obtained. COMPARISON: CT Abdomen/Pelvis 11/27/17. INDICATIONS: ABDOMINAL FISTULA FINDINGS: LINES and TUBES: Interval removal of anterior abdominal wall drainage catheter. LOWER THORAX: Interval resolution of trace left pleural effusion. Persistent trace pericardial effusion. LIVER: No masses BILIARY: Cholecystectomy. No ductal dilation. SPLEEN: No masses PANCREAS: No masses or ductal dilatation. ADRENALS: No nodules KIDNEYS: No hydronephrosis, stones, or solid mass lesions. GI TRACT: Stable hiatal hernia/gastric pouch within the lower thorax. Surgical changes of partial gastrectomy and gastrojejunostomy and repair of anastomotic leak, unchanged. Interval removal of upper anterior midline abdominal wall catheter. There is a punctate focus of air in the anterior abdominal wall with some increased inflammatory/phlegmon (measuring up to 48 cm in maximal SI dimension) on series 2, image 28 and sagittal series 300, image 81 without drainable collection. A persistent tract is noted from the midline anterior abdominal wall to the region of the transverse colon on series 2, image 25, which may represent a fistula. Continued interval decrease in prominence of linear tracts in the right lower quadrant abdominal wall at and adjacent to the site of prior catheter. No bowel obstruction. Normal appendix. VESSELS: Unremarkable PERITONEUM/RETROPERITONEUM: No free air or fluid LYMPH NODES: No lymphadenopathy PELVIS: Unremarkable SOFT TISSUES: As above BONES: No suspicious bone lesions. IMPRESSION: Interval removal of anterior abdominal wall drainage catheter without evidence of residual drainable collection. Persistent punctate focus of air in the anterior abdominal wall, with interval increase in inflammatory change/phlegmon. Adjacent tract which appears to extend intraperitoneally and may represent fistula to the transverse colon. Dictated by: JIN WYATT M.D. on 01/09/2018 at 10:55 Electronically approved by: JIN WYATT M.D. on 01/09/2018 at 10:55 ADDENDUM: The area of phlegmon in the anterior abdominal wall measures up to 4.8 cm, not 48 cm which was a dictation error. Dictated by: JIN WYATT M.D. on 01/09/2018 at 10:56 Electronically approved by: JIN WYATT M.D. on 01/09/2018 at 10:56
== END ==
LOC: CT 08:14
PROVIDERS: ATTEND Internal Medicine Infectious Disease
DX: L02.211 Cutaneous abscess of abdominal wall (principal)
CPT/HCPCS: 36415; 74177; 82565; 84520; Q9967

== ENCOUNTER 2018-11-04 13:14 | Emergency (ER) | payer BC ==
[~2018-11-04] VITALS: Ht 167.6 cm; Wt 137.9 kg
[~2018-11-04 13:14] MED LIST changes: -DIATRIZOATE MEGL/DIATRIZOA SOD 30 ML BTL PO ONE; -IOPAMIDOL 370 MG/ML 200 ML INFUS..BTL INJ ONE; -SODIUM CHLORIDE 0.9% 50ML 50 ML ONE
--- OUTSIDE RECORDS SUMMARY | 2018-11-04 13:17 | XMS REPORT | Clinical Summary ---
Author Author NOEMI [facility] Address Unknown Phone Unavailable Care Team Providers Care Marketing Database Analyst Name Role Phone Pcp, No PCP Unavailable Allergies Comments Active Allergy Reactions Severity Noted Date Other reaction(s): SOMETIMES IRRITATED SKIN Latex, Natural Rubber Other (See Low 12/21/2014 Comments) Medications End Date Status Medication Sig Dispensed Refills Start Date Active levothyroxine (SYNTHROID, Take 100 mcg 0 LEVOTHROID) 100 MCG by mouth tablet Every morning on an empty stomach. Active cyanocobalamin (VITAMIN Take 1,000 0 B-12) 1000 MCG tablet mcg by mouth daily. Active iron Take by mouth 0 aspgly,[id number] daily. 150-60-25-1 ji-pr-erf-mg Cap per capsule Active levothyroxine (SYNTHROID) Take 100 mcg 0 100 MCG tablet by mouth. 7 Active ondansetron (ZOFRAN-ODT) Take 1 tablet 20 tablet 0 4 MG disintegrating (4 mg total) 9 tablet by mouth every 6 (six) hours. 11/10/2018 Active nitrofurantoin, Take 1 14 capsule 0 macrocrystal-monohydrate, capsule (100 9 (MACROBID) 100 MG capsule mg total) by mouth 2 (two) times daily for 7 days. 08/07/2018 clotrimazole-betamethason Apply 30 g 0 e (LOTRISONE) 1-0.05 % topically 2 8 cream (two) times daily. 09/11/2018 amoxicillin-clavulanate Take 1 tablet 14 tablet 0 (AUGMENTIN) 875-125 mg by mouth 9 per tablet every 12 (twelve) hours for 10 days. Active Problems Problem Noted Date Hypothyroid 08/07/2017 Encounters Care Team Description Date Type Specialty Jay Doshi MD Dysuria (Primary Dx); Cystitis 11/03/2018 Emergency Emergency Medicine 11/03/2018 Travel Vivian Murray MD Incisional hernia, without obstruction or gangrene (Primary Dx) 10/26/2018 Emergency Emergency Medicine 10/26/2018 Travel Bhavik Dorantes MD Hemorrhoids, unspecified hemorrhoid type (Primary Dx); Hypokalemia; Cystitis; Anemia, unspecified type 09/01/2018 Emergency Emergency Medicine 09/01/2018 Travel after 11/03/2017 Family History Medical History Relation Name Comments Diabetes Father Hypertension Father Heart disease Mother Hypertension Mother Cervical cancer Sister Relation Name Status Comments Father Mother Sister Social History Date Tobacco Use Types Packs/Day Years Used Never Smoker Smokeless Tobacco: Never Used Alcohol Use Drinks/Week oz/Week Comments Yes Sex Assigned at Date Recorded Not on file Industry Job Start Date Occupation Not on file Not on file Not on file Travel End Travel History Travel Start No recent travel history available. Last Filed Vital Signs Time Taken Vital Sign Reading 11/03/2018 3:56 PM CDT Blood Pressure 135/69 11/03/2018 3:56 PM CDT Pulse 98 11/03/2018 3:56 PM CDT Temperature 37.1 C (98.7 F) 11/03/2018 3:56 PM CDT Respiratory Rate 16 11/03/2018 3:56 PM CDT Oxygen Saturation 98% - Inhaled Oxygen - Concentration 11/03/2018 3:56 PM CDT Weight 113.4 kg (250 lb) 11/03/2018 3:56 PM CDT Height 167.6 cm (5' 6") 11/03/2018 3:56 PM CDT Body Mass Index 40.35 Plan of Treatment Not on file Procedures Comments Procedure Name Priority Date/Time Associated Diagnosis SCREEN, URINE STAT 11/03/2018 4:13 PM CDT URINALYSIS W/ REFLEX Routine 11/03/2018 URINE CULTURE 4:13 PM CDT BASIC METABOLIC PANEL (7) STAT 09/01/2018 12:48 AM CDT CBC W/PLT COUNT & AUTO STAT 09/01/2018 DIFFERENTIAL 12:47 AM CDT CBC W/PLT COUNT & AUTO STAT 09/01/2018 DIFFERENTIAL 12:47 AM CDT SCREEN, URINE STAT 09/01/2018 12:47 AM CDT URINALYSIS W/ REFLEX Routine 09/01/2018 URINE CULTURE 12:47 AM CDT URINE CULTURE Routine 09/01/2018 12:47 AM CDT after 11/03/2017 Results * Urinalysis w/Microscopic + Reflex to Culture (11/03/2018 4:13 PM CDT) Only the most recent of 2 results within the time period is included. Color, UA Yellow [facility] Clarity, UA Slightly Cloudy [facility] Specific [place], UA 1.020 1.005 - 1.030 [facility] pH, UA 6.0 5.0 - 9.0 [facility] Protein, UA Negative Negative [facility] Glucose, UA Negative Negative [facility] Ketones[facility] UA Negative Negative [facility] Bilirubin, UA Negative Negative [facility] Blood, UA Moderate (A) Negative [facility] Nitrite, UA Negative Negative [facility] Leukocytes, UA Trace (A) Negative [facility] Urobilinogen, UA 0.2 0.2 - 1.0 mg/dL [facility] Bacteria, UA Moderate [facility] RBC, UA <5 /HPF [facility] WBC, UA 5-10 /HPF [facility] SQUAMOUS EPITHELIAL 5-10 /HPF [facility] Specimen Source [facility] Specimen Urine Performing Organization Address City/State/Zipcode Phone Number [facility] [address] [place] [address] [place] * screen, urine (11/03/2018 4:13 PM CDT) Only the most recent of 2 results within the time period is included. Preg Test, Ur Negative [facility] Specimen Urine Performing Organization Address [facility] Phone Number [phone] [place], [place] [address]R * Basic metabolic panel (Na, K+, Cl, CO2, Glu, Ca, BUN, Cr) (09/01/2018 12:48 AM CDT) Sodium 141 136 - 145 meq/L [facility] Potassium 3.3 (L) 3.5 - 5.1 meq/L [facility] Chloride 107 98 - 107 meq/L [facility] CO2 26 22 - 29 meq/L [facility] BUN 10 7 - 21 mg/dL [facility] Creatinine 0.53 (L) 0.57 - 1.25 mg/dL [facility] Glucose 111 (H) 70 - 105 mg/dL [facility] Calcium 8.0 (L) 8.4 - 10.2 mg/dL [facility] EGFR 130Comment: ESTIMATED GFR IS mL/min/1.73 sq m [facility] NOT ACCURATE CREATININE - [place] CLEARANCE IN PREDICTING GLOMERULAR FILTRATION RATE. ESTIMATED GFR IS NOT APPLICABLE FOR DIALYSIS PATIENTS. Specimen Blood Performing Organization Address [facility] Phone Number [place] [phone] [place], [place] [phone] [place] [address] * CBC with platelet count + automated diff (09/01/2018 12:47 AM CDT) WBC 11.4 (H) 3.5 - 10.5 K/L [facility] RBC 4.29 3.93 - 5.22 M/L [facility] Hemoglobin 10.5 (L) 11.2 - 15.7 GM/DL [facility] Hematocrit 34.5 34.1 - 44.9 % [facility] MCV 80.4 79.4 - 94.8 fL [facility] MCH 24.5 (L) 25.6 - 32.2 pg [facility] MCHC 30.4 (L) 32.2 - 35.5 GM/DL [facility] RDW 16.1 (H) 11.7 - 14.4 % [facility] Platelets 324 150 - 450 K/CU MM [facility] MPV 10.0 9.4 - 12.3 fL [facility] % Neutros 64 % [facility] % Lymphs 28 % [facility] % Monos 6 % [facility] % Eos 2 % [facility] % Baso 1 % [facility] # Neutros 7.31 (H) 1.56 - 6.13 K/L [facility] # Lymphs 3.17 1.18 - 3.74 K/L [facility] # Monos 0.64 (H) 0.24 - 0.36 K/L [facility] # Eos 0.19 0.04 - 0.36 K/L [facility] # Baso 0.08 0.01 - 0.08 K/L [facility] Immature 0 0 - 1 % [facility] Specimen Blood Performing Organization Address City/State/Zipcode Phone Number [facility] [address] [place] [address] [place] * Urine culture (09/01/2018 12:47 AM CDT) Result >100,000 col/mL Escherichia [facility] coli (A)Comment: ESBL Positive [facility] Result 20-29,000 col/mL Escherichia [facility] coli (A)Comment: of a second [facility] type Specimen Urine Antibiotic Method Susceptibility Organism Amikacin <=2: Susceptible Escherichia coli Ampicillin + Sulbactam 8: Susceptible Escherichia coli Aztreonam 4: Resistant Escherichia coli Cefepime Resistant Escherichia coli Cefoxitin Resistant Escherichia coli Ceftazidime Resistant Escherichia coli Ceftriaxone >=64: Resistant Escherichia coli Ertapenem <=0.5: Susceptible Escherichia coli Gentamicin <=1: Susceptible Escherichia coli Levofloxacin >=8: Resistant Escherichia coli Meropenem <=0.25: Susceptible Escherichia coli Nitrofurantoin <=16: Susceptible Escherichia coli Piperacillin + Tazobactam Resistant Escherichia coli Tetracycline >=16: Resistant Escherichia coli Tobramycin <=1: Susceptible Escherichia coli Trimethoprim + Sulfamethoxazole >=320: Resistant Escherichia coli Amikacin <=2: Susceptible Escherichia coli Ampicillin + Sulbactam >=32: Resistant Escherichia coli Aztreonam <=1: Susceptible Escherichia coli Cefepime <=1: Susceptible Escherichia coli Cefoxitin <=4: Susceptible Escherichia coli Ceftazidime <=1: Susceptible Escherichia coli Ceftriaxone <=1: Susceptible Escherichia coli Ertapenem <=0.5: Susceptible Escherichia coli Gentamicin >=16: Resistant Escherichia coli Levofloxacin >=8: Resistant Escherichia coli Meropenem <=0.25: Susceptible Escherichia coli Nitrofurantoin <=16: Susceptible Escherichia coli Piperacillin + Tazobactam <=4: Susceptible Escherichia coli Tetracycline >=16: Resistant Escherichia coli Tobramycin 8: Resistant Escherichia coli Trimethoprim + Sulfamethoxazole >=320: Resistant Escherichia coli Performing Organization Address City/State/[facility] Phone Number [facility] [address] [place], [place] [phone] [facility] after 11/03/2017 Insurance Payer Benefit Subscriber ID Type Phone Address Plan / Group BLUE CROSS/BLUE SHIELD BCBS PPO xxxxxxxxxxxx PPO [phone] [address] [place] [address] CHOICE
[2018-11-04] MEDS ORDERED: SODIUM CHLORIDE 0.9% 1000ML 1,000 ML IV STA (13:23)
[2018-11-04] MEDS ORDERED: ONDANSETRON HCL INJ 2MG/ML 2ML 2 MG/ML VIAL IV NR (13:30)
[2018-11-04] MEDS ORDERED: KETOROLAC TROMETHAMINE 30 MG/ML VIAL IV NR (13:30)
[2018-11-04] MEDS ORDERED: DIATRIZOATE MEGL/DIATRIZOA SOD 30 ML BTL PO ONE (13:36)
--- NOTE | 2018-11-04 13:45 | NUR ---
rec'd pt in rm 3 with c/o nausea/fever. placed on the monitor. v.s.s. bed low/locked and call foley within reach. able to make needs known. denies need for pain medication at this time.
--- NOTE | 2018-11-04 14:00 | NUR ---
ct contrast given and pt tolerating well so far.
[2018-11-04 14:17] LABS: BASOPHILS # (AUTO) 0.1 (0.0-0.1); BASOPHILS % 0.5 % (0.0-1.0); EOSINOPHILS # (AUTO) 0.2 (0.0-0.4); EOSINOPHILS % 1.8 % (0.0-6.0); HEMOGLOBIN 12.2 g/dL (12.0-16.0); LYMPHOCYTES # (AUTO) 2.4 (1.0-3.2); LYMPHOCYTES % 24.3 % (18.0-39.1); MEAN CORPUSCULAR HEMOGLOBIN 25.7 pg (28-32); MEAN CORPUSCULAR HGB CONC 31.3 g/dL (31-35); MEAN CORPUSCULAR VOLUME 82.3 fL (81-99); MONOCYTES # (AUTO) 0.8 (0.2-0.8); MONOCYTES % 7.6 % (4.4-11.3); NEUTROPHILS # (AUTO) 6.5 (2.1-6.9); NEUTROPHILS % 65.7 % (38.7-80.0); PLATELET COUNT 318 x10e3/uL (140-360); RED BLOOD COUNT 4.74 x10e6/uL (3.6-5.1); RED CELL DISTRIBUTION WIDTH 15.6 % (11.7-14.4)
[2018-11-04] MEDS ORDERED: MEROPENEM 1GM 100 ML IV ONE (14:30)
[2018-11-04 14:41] LABS: ALANINE AMINOTRANSFERASE 14 IU/L (0-55); ALBUMIN 3.7 g/dL (3.5-5.0); ALBUMIN/GLOBULIN RATIO 0.9 (0.8-2.0); ALKALINE PHOSPHATASE 100 IU/L (40-150); ANION GAP 13.8 mmol/L (8-16); BLOOD UREA NITROGEN 9 mg/dL (7-26); BUN/CREATININE RATIO 15 (6-25); CALCIUM 8.9 mg/dL (8.4-10.2); CARBON DIOXIDE 24 mmol/L (22-29); CHLORIDE 106 mmol/L (98-107); CREATININE, SERUM 0.62 mg/dL (0.57-1.11); EST GLOMERULAR FILTRATION RATE > 60 ML/MIN (60-); GLUCOSE 72 mg/dL (74-118); LIPASE 27 U/L (8-78); POTASSIUM 3.8 mmol/L (3.5-5.1); SODIUM 140 mmol/L (136-145)
--- NOTE | 2018-11-04 14:49 | NUR ---
urine collected and taken to the lab.
--- NOTE | 2018-11-04 15:09 | NUR ---
lab was called re urine results; spoke with brinda.
[2018-11-04 15:13] LABS: BILIRUBIN,URINE NEGATIVE (NEGATIVE); CLARITY,URINE CLEAR (CLEAR); COLOR,URINE YELLOW (YELLOW); KETONES,URINE NEGATIVE (NEGATIVE); LEUKOCYTE ESTERASE ,URINE NEGATIVE (NEGATIVE); NITRITE,URINE NEGATIVE (NEGATIVE); PROTEIN,URINE DIPSTICK NEGATIVE (NEGATIVE); URINE UROBILINOGEN 0.2 mg/dL (0.2 - 1)
[2018-11-04 15:16] LABS: PREGNANCY TEST, URINE NEGATIVE (NEGATIVE)
[2018-11-04 15:27] LABS: BACTERIA,URINE MODERATE /HPF; EPITHELIAL CELLS,URINE MODERATE /LPF
[2018-11-04] MEDS ORDERED: SODIUM CHLORIDE 0.9% 50ML 50 ML ONE (15:40)
[2018-11-04] MEDS ORDERED: IOPAMIDOL 370 MG/ML 200 ML INFUS..BTL INJ ONE (15:40)
--- NOTE | 2018-11-04 16:06 | Diagnostic Imaging Report ---
CT Abdomen And Pelvis with Intravenous Contrast INDICATION: Bilateral flank pain, current treatment for UTI, history of C-sections, hiatal hernia repair, bowel resection, sleeve gastrectomy, cholecystectomy ^r flank pain give po contrast too pls ^[id number] ^[id number] TECHNIQUE: Thin collimation axial images obtained from the diaphragm to the level of the pubic symphysis following the uneventful administration of oral and 100 cc of low osmolar, nonionic intravenous contrast. Dose reduction techniques used: Automated exposure control, adjustment of the mAs and/or kVp according to patient size, standardized low-dose protocol, and/or iterative reconstruction technique. RADIATION DOSE: Total DLP: None mGy*cm Estimated effective dose: (DLP x 0.015 x size factor) mSv CTDIvol has been reviewed. It is below the limits set by the Radiation Protocol Committee (RPC). COMPARISON: CT abdomen/pelvis 11/27/2017. ABDOMEN FINDINGS: Lung Bases: Lung bases are clear. There is a small hiatal hernia. Visualized portion of the mediastinum is normal. Liver: Normal attenuation. No evidence for mass. Gallbladder: Absent. No biliary ductal dilatation. Pancreas: Normal attenuation without mass or ductal dilatation. Spleen: Normal in size. No evidence of mass.. Adrenal Glands: No evidence for mass. Kidneys: Right: Normal enhancement. No soft tissue mass. No calculus or hydronephrosis. Left: Normal enhancement. No soft tissue mass. No calculus or hydronephrosis. Lymph Nodes: No enlarged abdominal or periaortic lymph nodes. 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 The stomach is not dilated. Small Bowel: Chain sutures within the small bowel and the right hemiabdomen. Enteric contrast progresses past the site of anastomosis. Small bowel loops are normal in diameter with normal wall thickness.. Large Bowel: Normal in caliber with normal wall thickness. Appendix: Normal appendix. Bladder: Normal. The uterus is present and normal in morphology. There is a corpus luteum in the right ovary adjacent to a dominant follicle. Peritoneum/retroperitoneum: No free fluid or fluid collection Bones: No focal osseous lesions. Soft tissues: Laxity of the linea alba at the level of the stomach has anterior protrusion of transverse colon. A right para-incisional hernia superior to the umbilicus has an aperture of 4.5 cm and contains fat and a knuckle of proximal transverse colon. No fluid in the hernia sac. IMPRESSION: 1. No evidence for bowel obstruction or inflammation. Postoperative changes of the small bowel and stomach as described above. Small hiatal hernia 2. Small hiatal hernia. Abdominal wall hernias containing large bowel without obstruction. 3. Corpus luteum and dominant follicle in the right ovary. Signed by: Dr. Miguelito Figueroa MD on 11/04/2018 4:03 PM
== END 2018-11-04 17:06 | disposition home or self-care (01) ==
LOC: ER 13:14
DX: R10.31 Right lower quadrant pain (principal); R11.2 Nausea with vomiting, unspecified; N39.0 Urinary tract infection, site not specified; N83.201 Unspecified ovarian cyst, right side
CPT/HCPCS: 36415; 74177; 80053; 81001; 81025; 83605; 83690; 85025; 87040; 87086; 99284; J2185; J2405; J7030; Q9967

== ENCOUNTER 2019-02-11 22:22 | Emergency (ER) | payer BC ==
[~2019-02-11] VITALS: Ht 167.6 cm; Wt 113.4 kg
--- OUTSIDE RECORDS SUMMARY | 2019-02-11 22:25 | XMS REPORT | Summary of Care ---
Author Author [facility] - Health Organization [facility] Address Unknown Phone Unavailable Care Team Providers Care Aerodynamics Professor Name Role Phone Pcp, Patient Does Not Have A PCP Reason for Visit * Reason Comments Refill Request Encounter Details Care Team Description Date Type Department Lyssa Horton PA-C [address] [place] [address] [address] [place] [address] Refill Request 11/22/2018 Refill [facility] [address], [address] [place] [address] Allergies Comments Active Allergy Reactions Severity Noted Date Latex Other - See 12/21/2014 comments documented as of this encounter (statuses as of 11/23/2018) Medications End Date Status Medication Sig Dispensed Refills Start Date Active FERROUS FUMARATE (IRON Take by 0 ORAL) mouth 2 (two) times daily. Active CYANOCOBALAMIN, VITAMIN Take by 0 B-12, (VITAMIN B-12 ORAL) mouth. Active MULTIVITAMIN (M.V.I. 12 Inject 0 IV) intravenously . Active ranitidine (ZANTAC) 150 Take 150 mg 0 mg tablet by mouth 2 (two) times daily. Active OMEPRAZOLE ORAL Take by 0 mouth. Active levothyroxine (SYNTHROID) Take 1 tablet 30 tablet 10 100 mcg by mouth 7 tabletIndications: every Hypothyroidism, morning. unspecified type 11/24/2018 Active levoFLOXacin 750 mg Take 1 tablet 5 tablet 0 tabletIndications: by mouth 9 Urinary tract infection every 24 without hematuria, site (twenty-four) unspecified hours for 5 days. Active fluconazole 200 mg Take 1 tablet 1 tablet 0 tabletIndications: by mouth 9 Urinary tract infection daily. without hematuria, site unspecified documented as of this encounter (statuses as of 11/23/2018) Active Problems No known active problemsdocumented as of this encounter (statuses as of 11/23/2018) Social History Date Tobacco Use Types Packs/Day Years Used Never Smoker Smokeless Tobacco: Never Used Drinks/Week oz/Week Comments Alcohol Use 0 Standard drinks or equivalent 0.0 Occasional Yes Sex Assigned at Date Recorded Not on file Industry Job Start Date Occupation Not on file Not on file Not on file Travel End Travel History Travel Start No recent travel history available. documented as of this encounter Last Filed Vital Signs Not on filedocumented in this encounter Plan of Treatment Health Maintenance Due Date Last Done Comments DTaP,Tdap,and Td Vaccines 12/31/1999 (1 - Tdap) INFLUENZA VACCINE (#1) 2018 PAP SMEAR 07/28/2019 07/27/2016, 07/06/2015 PNEUMOCOCCAL 0-64 YEARS Aged Out No longer eligible based COMBINED SERIES on patient's age to complete this topic documented as of this encounter Results Not on filedocumented in this encounter Visit Diagnoses Diagnosis Urinary tract infection without hematuria, site unspecified documented in this encounter Insurance Type Payer Benefit Subscriber ID Effective Phone Address Plan / Dates Group PPO/POS BCBS OF [facility] BCBS OF [id number] 2014- EMPLOY[place] Present EMPLOYEE PLAN PPO/POS BCBS [facility] BCBS OF [id number] 2018- [place] Present EMPLOYEE PLAN documented as of this encounter
--- OUTSIDE RECORDS SUMMARY | 2019-02-11 22:25 | XMS REPORT | Summary of Care ---
Author Author [facility] - Health Organization [facility] - Health Address Unknown Phone Unavailable Care Team Providers Care Commercial Internship Name Role Phone Pcp, Patient Does Not Have A PCP Reason for Visit * Reason Comments Refill Request Encounter Details Care Team Description Date Type Department Lyssa Horton PA-C [address] [place] [phone] Refill Request 11/17/2018 Refill [facility] [address] [place] [address] Allergies Comments Active Allergy Reactions Severity Noted Date Latex Other - See 12/21/2014 comments documented as of this encounter (statuses as of 11/19/2018) Medications End Date Status Medication Sig Dispensed [...] levothyroxine (SYNTHROID) Take 1 tablet 30 tablet 100 mcg by mouth 7 tabletIndications: every Hypothyroidism, morning. unspecified type documented as of this encounter (statuses as of 11/19/2018) Active Problems No known active problemsdocumented as of this encounter (statuses as of 11/19/2018) Social History Date Tobacco Use Types Packs/Day [...] filedocumented in this encounter Visit Diagnoses Diagnosis Vaginal clinton Candidiasis of vulva and vagina documented in this encounter Insurance Type Payer Benefit Subscriber ID Effective Phone Address Plan / Dates Group PPO/POS BCBS OF [facility] BCBS OF [id number] 2014- EMPLOYEE [place] Present EMPLOYEE PLAN PPO/POS BCBS OF [facility] BCBS OF [id number] 2018- EMPLOYEE [place] Present EMPLOYEE PLAN documented as of this encounter
--- OUTSIDE RECORDS SUMMARY | 2019-02-11 22:25 | XMS REPORT | Summary of Care ---
Author Author [facility] - Health Organization [facility] - Health Address Unknown Phone Unavailable Care Team Providers Care Christmas Tree Grower Name Role Phone Pcp, Patient Does Not Have A PCP Reason for Visit * Reason Comments Refill Request Encounter Details Care Team Description Date Type Department Lyssa Horton PA-C [address] [place] [phone] Refill Request 11/17/2018 Refill [facility] [address] [place] [address] Allergies Comments Active Allergy Reactions Severity [...] Plan / Dates Group PPO/POS BC[facility] OF [facility] BCBS OF [id number] 2014- EMPLOYEE [place] Present EMPLOYEE PLAN PPO/POS BCBS OF [facility] BCBS OF [id number] 2018- EMPLOYEE [place] Present EMPLOYEE PLAN documented as of this encounter
--- OUTSIDE RECORDS SUMMARY | 2019-02-11 22:25 | XMS REPORT | Summary of Care ---
Author Author [facility] - Health Organization [facility] - Health Address Unknown Phone Unavailable Care Team Providers Care Driver Recruiter Name Role Phone Pcp, Patient Does Not Have A PCP Reason for Visit * Reason Comments Refill Request Encounter Details Care Team Description Date Type Department Michelle Sofia DNP [address] [place] [address] [phone] Refill Request 11/17/2018 Refill [facility] [address], [address] [place] [address] Allergies Comments Active Allergy Reactions Severity Noted [...] filedocumented in this encounter Visit Diagnoses Diagnosis Hypothyroidism, unspecified type documented in this encounter Insurance Type Payer Benefit Subscriber ID Effective Phone Address Plan / Dates Group PPO/POS BCBS OF [facility] BCBS OF [id number] 2014- EMPLOYEE [place] Present EMPLOYEE PLAN PPO/POS BCBS OF [facility] BCBS OF [id number] 2018- EMPLOYEE [place] Present EMPLOYEE PLAN documented as of this encounter
--- OUTSIDE RECORDS SUMMARY | 2019-02-11 22:25 | XMS REPORT | Summary of Care ---
Author Author [facility] - Health Organization [facility] - Health Address Unknown Phone Unavailable Care Team Providers Care Dry End Tester Name Role Phone Pcp, Patient Does Not Have A PCP Reason for Visit * Reason Comments Neck Pain left sided lymphnode pain Suprapubic Pain x 11/13/2018 Encounter Details Care Team Description Date Type Department Unknown, Attending Lyssa Horton PA-C [address] [place] [phone] Vaginal clinton (Primary Dx); Suprapubic abdominal pain; Sore throat 11/16/2018 Urgent Care [facility] [address] [place] [phone] Allergies Comments Active Allergy Reactions Severity Noted Date Latex Other - See 12/21/2014 comments documented as of this encounter (statuses as of 11/16/2018) Medications End Date Status Medication Sig Dispensed [...] 7 tabletIndications: every Hypothyroidism, morning. unspecified type 11/17/2018 Active fluconazole 200 mg Take 1 tablet 1 tablet 0 tabletIndications: by mouth 9 Vaginal clinton daily for 1 day. documented as of this encounter (statuses as of 11/16/2018) Active Problems No known active problemsdocumented as of this encounter (statuses as of 11/16/2018) Social History Date Tobacco Use Types Packs/Day [...] of this encounter Last Filed Vital Signs Reading Time Taken Comments Vital Sign 113/80 11/16/2018 6:19 PM CDT Blood Pressure 61 11/16/2018 6:19 PM CDT Pulse 37.1 C (98.7 F) 11/16/2018 6:19 PM CDT Temperature 16 11/16/2018 6:19 PM CDT Respiratory Rate 100% 11/16/2018 6:19 PM CDT Oxygen Saturation - - Inhaled Oxygen Concentration 114.6 kg (252 lb 9.6 oz) 11/16/2018 6:19 PM CDT Weight 167.6 cm (5' 6") 11/16/2018 6:19 PM CDT Height 40.77 11/16/2018 6:19 PM CDT Body Mass Index documented in this encounter Patient Instructions * Patient Instructions* Lyssa Horton PA-C - 11/16/2018 6:00 PM CDT Vaginal Infection: Yeast (Candidiasis) Yeast infection occurs when yeast in the vagina increase and attacks the vaginal tissues. Yeast is a type of fungus. These infections are often caused by a type of yeast called Clinton albicans. Other species of yeast can also cause infecti ons. Factors that may make infection more likely include recent antibiotic use, douching, or increasedsex. Yeast infections are more common in women who have diabetes, or are obese or , or have a weak immune system. Symptoms of yeast infection Clumpy or thin, white discharge, which may look like cottage cheese No odor or minimal odor Severe vaginal itching or burning Burning with urination Swelling, redness of vulva Pain during sex Treating yeast infection Yeast infection is treated with a vaginal antifungal cream. In some cases, antif ungal pills are prescribed instead. During treatment: Finish all of your medicine, even if your symptoms go away. Apply the cream before going to bed. Lie flat after applying so that it doesn 't drip out. Do not douche or use tampons. Don't rely on a diaphragm or condoms, since the cream may weaken them. Avoid intercourse if advised by your healthcare provider. Should I treat a yeast infection myself? Discuss with your healthcare provider whether you should use [id number] me dicines to treat a yeast infection. Self-treatment may depend on whether: You've had a yeast infection in the past. You're at risk for STDs. Call your healthcare provider if symptoms do not go away or come back after bianca tment. Date Last Reviewed: 05/25/201619992697-8967 [employer]. [address] [place] [address], [place] [address] 7. All rights reserved. This information is not intended as a substitute for pro fessional medical care. Always follow your healthcare professional's instruction s. documented in this encounter Progress Notes * Lyssa Horton PA-C - 11/16/2018 6:00 PM CDT Cc: Chief Complaint Patient presents with Neck Pain left sided lymphnode pain Suprapubic Pain x 11/13/2018 Jazmyne Ayoub is a 37 year old female coming in concerned about a possible UTI a nd yeast infection symptoms. Patient reports she has had a hx of recurrent UTIs and has been on two different antibiotics recently. Patient reports she now sta rted with vaginal itching and white discharge. Patient also reports dysuria. P atient also began with a sore throat and earache today. 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 Patient denies any fever , chills ,body aches. . HPI Allergies Jazmyne is allergic to latex. Medications Outpatient Medications Prior to Visit Medication Sig Dispense Refill levothyroxine (SYNTHROID) 100 mcg tablet Take 1 tablet by mouth every mornin g. 30 tablet 10 FERROUS FUMARATE (IRON ORAL) Take by mouth 2 (two) times daily. MULTIVITAMIN (M.V.I. 12 IV) Inject intravenously. OMEPRAZOLE ORAL Take by mouth. ranitidine (ZANTAC) 150 mg tablet Take 150 mg by mouth 2 (two) times daily. CYANOCOBALAMIN, VITAMIN B-12, (VITAMIN B-12 ORAL) Take by mouth. No facility-administered medications prior to visit. Histories Past Medical History: Diagnosis Date Pap smear abnormality of cervix 2007 Colpo, JACINTO II Pap smear abnormality of cervix 2013 Colpo, JACINTO I, pap 03/2014 negative Thyroid disease Hypothyroid Past Surgical History: Procedure Laterality Date SECTION X 3 CHOLECYSTECTOMY 2005 COLPOSCOPY 2007, 2013 DILATION AND CURETTAGE (SHX) LAPAROSCOPIC GASTRIC SLEEVE (SHX) 2014 TUBAL LIGATION Social History Socioeconomic History Marital status: Spouse name: Not on file Number of children: Not on file Years of education: Not on file Highest education level: Not on file Occupational History Not on file Social Needs Financial resource strain: Not on file Food insecurity: Worry: Not on file Inability: Not on file Transportation needs: Medical: Not on file Non-medical: Not on file Tobacco Use Smoking status: Never Smoker Smokeless tobacco: Never Used Substance and Sexual Activity Alcohol use: Yes Alcohol/week: 0.0 oz Comment: Occasional Drug use: No Sexual activity: Yes Partners: Male control/protection: Surgical Comment: [place] Lifestyle Physical activity: Days per week: Not on file Minutes per session: Not on file Stress: Not on file Relationships Social connections: Talks on phone: Not on file Gets together: Not on file Attends yazidism service: Not on file Active member of club or organization: Not on file Attends meetings of clubs or organizations: Not on file Relationship status: Not on file Intimate partner violence: Fear of current or ex partner: Not on file Emotionally abused: Not on file Physically abused: Not on file Forced sexual activity: Not on file Other Topics Concern Not on file Social History Narrative Not on file Family History Problem Relation Age of Onset Alcohol abuse Maternal Grandfather Hypertension Mother Heart Mother Diabetes Mother Hypertension Father Diabetes Father Cancer Father Skin cancer Cervical Cancer Sister Cancer Sister Cervical and thyroid cancer Hypertension Paternal Grandmother Heart Paternal Grandmother Hypertension Paternal Grandfather Diabetes Paternal Grandfather Alcohol abuse Paternal Grandfather Cancer Paternal Grandfather Lung cancer, mets Allergies Daughter Blood Disease NoFHx Blood clot / hypercoagulopathy NoFHx Psychiatry NoFHx Review of Systems Constitutional: Negative for chills, fever, weight gain and weight loss. HENT: Positive for ear pain and sore throat. Negative for congestion, rhinorrhea , sinus pressure and trouble swallowing. Eyes: Negative for pain, discharge and itching. Respiratory: Negative for cough, chest tightness, shortness of breath and wheezi ng. Cardiovascular: Negative for chest pain. Gastrointestinal: Negative for abdominal pain, constipation, diarrhea, nausea an d vomiting. Genitourinary: Positive for dysuria, vaginal discharge, difficulty urinating and vaginal pain. Negative for bladder incontinence and vaginal bleeding. Skin: Negative for rash. Neurological: Negative for dizziness, weakness and headaches. Psychiatric/Behavioral: Negative for confusion. Endocrine: Negative for weight gain and weight loss. Vital Signs BP 113/80 | Pulse 61 | Temp 37.1 C (98.7 F) (Oral) | Resp 16 | Ht 5' 6" (1.676 m) | Wt 252 lb 9.6 oz (114.6 kg) | LMP 11/11/2018 | SpO2 100% | BMI 4 0.77 kg/m Physical Exam Constitutional: She is oriented to person, place, and time. She appears well-dev eloped and well-nourished. HENT: Head: Normocephalic and atraumatic. Right Ear: External ear normal. Left Ear: External ear normal. Nose: Nose normal. Mouth/Throat: Oropharynx is clear and moist. Eyes: Pupils are equal, round, and reactive to light. Neck: Normal range of motion. Neck supple. Cardiovascular: Normal rate, regular rhythm and normal heart sounds. Pulmonary/Chest: Effort normal and breath sounds normal. Abdominal: Soft. Bowel sounds are normal. Musculoskeletal: Normal range of motion. Neurological: She is alert and oriented to person, place, and time. Skin: Skin is warm and dry. Psychiatric: She has a normal mood and affect. Vitals reviewed. Assessment/Plan Vaginal clinton (primary encounter diagnosis) Plan: fluconazole 200 mg tablet Suprapubic abdominal pain Plan: POCT URINALYSIS W SPECIFIC GRAVITY, URINE CULTURE Sore throat STREP NEG Plan: POCT RAPID STREP SCREEN FOR GROUP A Aleve or tylenol or ibuprofen- over the counter, for fevers, aches and pain s Rest Increase fluids -HYDRATION WITH CLEAR LIQUIDS Vitamin C Warm salt water gargles or CEPACOL SPRAYS FOR SORE THROAT or Cepacol extra st rength for sore throat and cough Breath humidified air (steam) HAND HYGIENE (with alcohol gels or hand washing) Call or return to clinic prn if these symptoms worsen or fail to improve This visit did not involve counseling and coordination that comprised more than 50% of the visit time. Lyssa Horton PA-C 11/16/2018 7:08 PM * Radha gAuayo MA - 11/16/2018 6:00 PM CDT Jazmyne Ayoub is a 37 year old female Chief Complaint Patient presents with Neck Pain left sided lymphnode pain Suprapubic Pain x 11/13/2018 Vitals: 11/16/18 1819 BP: 113/80 Pulse: 61 Resp: 16 Temp: 37.1 C (98.7 F) TempSrc: Oral SpO2: 100% Weight: 252 lb 9.6 oz (114.6 kg) Height: 5' 6" (1.676 m) [address] - [facility] [address] [facility] [place] [address] [address] [place] Patient AAOx4 and in no acute distress. All Vitals taken, allergies and all medications reviewed, fall risk assessed. Pa in level 0. documented in this encounter Plan of Treatment Date/Time Name Type Priority Associated Diagnoses 11/16/2018 7:05 PM CDT URINE CULTURE LAB Routine Suprapubic abdominal pain Health Maintenance Due Date Last Done Comments DTaP,Tdap,and Td Vaccines 12/31/1999 (1 - Tdap) INFLUENZA VACCINE (#1) 2018 PAP SMEAR 07/28/2019 07/27/2016, 07/06/2015 PNEUMOCOCCAL 0-64 YEARS Aged Out No longer eligible based COMBINED SERIES on patient's age to complete this topic documented as of this encounter Procedures Comments Procedure Name Priority Date/Time Associated Diagnosis POCT URINALYSIS Routine 11/16/2018 Suprapubic abdominal pain 7:04 PM CDT POCT RAPID STREP SCREEN Routine 11/16/2018 Sore throat FOR GROUP A 6:25 PM CDT documented in this encounter Results * POCT URINALYSIS W SPECIFIC GRAVITY (11/16/2018 7:04 PM CDT) POCT U SP GRAV 1.020 1.005 - 1.025 mg/dl POCT PH U 6 5 - 8 mg/dl POCT U LEUK EST + Negative - Negative POCT U NIT neg Negative - Negative POCT U PROT trace Negative - Negative POCT U GLU norm Negative - Negative POCT U KETONE neg Negative - Negative POCT U UROBILI norm 0.2 - 1 mg/dl POCT U BILI neg Negative - Negative POCT U BLD about 50 Negative - Negative POCT U COLOR yellow POCT U APPEAR cloudy Specimen Urine - URINE, CLEAN CATCH Narrative Performed At accurate development and interpretation of all internal controls * POCT RAPID STREP SCREEN FOR GROUP A (11/16/2018 6:25 PM CDT) POCT GP A STREP neg Negative - Negative Specimen Swab - THROAT Narrative Performed At accurate development and interpretation of all internal controls documented in this encounter Visit Diagnoses Diagnosis Vaginal clinton - Primary Candidiasis of vulva and vagina Suprapubic abdominal pain Abdominal pain, other specified site Sore throat Acute pharyngitis documented in this encounter Insurance Type Payer Benefit Subscriber ID Effective Phone Address Plan / Dates Group PPO/POS BCBS OF [facility] BCBS OF [id number] 2018- EMPLOYEE [place] Present EMPLOYEE PLAN (Work) documented as of this encounter
--- OUTSIDE RECORDS SUMMARY | 2019-02-11 22:25 | XMS REPORT | Summary of Care ---
Author Author [facility] - Health Organization [facility] - Health Address Unknown Phone Unavailable Care Team Providers Care Mechanical Operator Name Role Phone Pcp, Patient Does Not Have A PCP Reason for Visit * Reason Comments New Medication Encounter Details Care Team Description Date Type Department Lyssa Horton PA-C [address] [place] [address] [address] [place] [phone] New Medication 11/19/2018 Case Management [facility]- [address], [address] [place] [phone] Allergies Comments Active Allergy Reactions [...] site (twenty-four) unspecified hours for 5 days. 11/20/2018 Active fluconazole 200 mg Take 1 tablet 1 tablet 0 tabletIndications: by mouth 9 Urinary tract infection daily for 1 without hematuria, site day. unspecified documented as of this encounter (statuses [...] Urinary tract infection without hematuria, site unspecified - Primary documented in this encounter Insurance Type Payer Benefit Subscriber ID Effective Phone Address Plan / Dates Group PPO/POS BCBS OF [facility] BCBS OF [id number] 2014- [place]PLOY[place] Present EMPLOYEE PLAN PPO/POS BCBS OF [facility] BCBS OF [id number] 2018- [place] Present EMPLOYEE PLAN documented as of this encounter
--- OUTSIDE RECORDS SUMMARY | 2019-02-11 22:25 | XMS REPORT | Summary of Care ---
Author Author [facility] - Health Organization [facility] - Health Address Unknown Phone Unavailable Care Team Providers Care Social Security Specialist Name Role Phone Pcp, Patient Does Not Have A PCP Encounter Details Care Team Description Date Type Department Doctor Unassigned, [facility] [address] [place] [id number] 11/16/2018 Orders Only [facility] [address] [place] [address] Allergies Comments Active Allergy Reactions Severity Noted [...] Comments Procedure Name Priority Date/Time Associated Diagnosis ASSIGNMENT OF BENEFITS Routine 11/16/2018 6:10 PM CDT documented in this encounter Results Not on filedocumented in this encounter Insurance Type Payer Benefit Subscriber ID Effective Phone Address Plan / Dates Group PPO/POS BCBS OF [place] [facility] BCBS OF [id number] 2014- [place]PLOY[place] Present EMPLOYEE PLAN documented as of this encounter
--- OUTSIDE RECORDS SUMMARY | 2019-02-11 22:26 | XMS REPORT | Summary of Care ---
Author Author [facility] - Health Organization [facility] - Health Address Unknown Phone Unavailable Care Team Providers Care Habilitation Training Specialist Name Role Phone Pcp, Patient Does Not Have A PCP Reason for Visit * Reason Comments Refill Request Encounter Details Care Team Description Date Type Department Lyssa Horton PA-C [address] [place] [phone] Refill Request 11/22/2018 Refill [facility] [address] [place] [phone] Allergies Comments Active Allergy Reactions Severity [...] Plan / Dates Group PPO/POS BCBS OF [facility] BCBS OF [id number] 2014- EMPLOYEE [place] Present EMPLOYEE PLAN PPO/POS BCBS OF [facility] BCBS OF [id number] 2018- EMPLOY[place] Present EMPLOYEE PLAN documented as of this encounter
--- OUTSIDE RECORDS SUMMARY | 2019-02-11 22:26 | XMS REPORT | Summary of Care ---
Author Author [facility] - Health Organization [facility] - Health Address Unknown Phone Unavailable Care Team Providers Care Hearing And Speech Assistant Name Role Phone Pcp, Patient Does Not Have A PCP Reason for Visit * Reason Comments Refill Request Encounter Details Care Team Description Date Type Department Lyssa Horton PA-C [address] [place] [phone] Refill Request 12/02/2018 Refill Counts include 234 beds at the [facility] [address] [place] [phone] Allergies Comments Active Allergy Reactions Severity Noted Date Latex Other - See 12/21/2014 comments documented as of this encounter (statuses as of 12/03/2018) Medications End Date Status Medication Sig Dispensed [...] 7 tabletIndications: every Hypothyroidism, morning. unspecified type Active fluconazole 200 mg Take 1 tablet 1 tablet 0 tabletIndications: by mouth 9 Urinary tract infection daily. without hematuria, site unspecified 12/04/2018 Active FLUCONAZOLE 200 mg TAKE 1 TABLET 1 tablet 0 tabletIndications: BY MOUTH 9 Vaginal clinton DAILY FOR 1 DAY documented as of this encounter (statuses as of 12/03/2018) Active Problems No known active problemsdocumented as of this encounter (statuses as of 12/03/2018) Social History Date Tobacco Use Types Packs/Day [...] PPO/POS BCBS OF [facility] BCBS OF [id number] 2014- EMPLOY[place] Present EMPLOYEE PLAN PPO/POS [facility] OF [facility] BCBS OF [id number] 2018- EMPLOY[place] Present EMPLOYEE PLAN documented as of this encounter
[2019-02-11] MEDS ORDERED: CEFTRIAXONE SOD 1 GM VIAL IM ONE (22:45)
[2019-02-11 23:16] LABS: BILIRUBIN,URINE NEGATIVE (NEGATIVE); CLARITY,URINE CLOUDY (CLEAR); COLOR,URINE YELLOW (YELLOW); KETONES,URINE NEGATIVE (NEGATIVE); LEUKOCYTE ESTERASE ,URINE TRACE (NEGATIVE); NITRITE,URINE POSITIVE (NEGATIVE); PROTEIN,URINE DIPSTICK NEGATIVE (NEGATIVE); URINE UROBILINOGEN 0.2 mg/dL (0.2 - 1)
[2019-02-11 23:30] LABS: BACTERIA,URINE MANY /HPF; EPITHELIAL CELLS,URINE FEW /LPF; WBC,URINE (MAN) 21-50 /HPF (0-5)
[2019-02-11] MEDS ORDERED: LIDOCAINE HCL 1% LOCAL INJ 20 ML VIAL ONE (23:32)
[2019-02-12 00:20] VITALS: BP 139/69
== END 2019-02-12 00:22 | disposition home or self-care (01) ==
LOC: ER 22:22
DX: R10.2 Pelvic and perineal pain (principal); R10.31 Right lower quadrant pain; R11.0 Nausea; M54.5 Low back pain; N30.01 Acute cystitis with hematuria
CPT/HCPCS: 81001; 87086; 87186; 99283; J0696; J2001

== ENCOUNTER 2019-02-19 21:04 | Emergency (ER) | payer BC ==
[~2019-02-19] VITALS: Ht 167.6 cm; Wt 113.4 kg
[2019-02-19 22:01] LABS: BILIRUBIN,URINE NEGATIVE (NEGATIVE); CLARITY,URINE SL CLOUDY (CLEAR); COLOR,URINE YELLOW (YELLOW); KETONES,URINE NEGATIVE (NEGATIVE); LEUKOCYTE ESTERASE ,URINE NEGATIVE (NEGATIVE); NITRITE,URINE NEGATIVE (NEGATIVE); PROTEIN,URINE DIPSTICK NEGATIVE (NEGATIVE); URINE UROBILINOGEN 0.2 mg/dL (0.2 - 1)
[2019-02-19 22:16] LABS: BACTERIA,URINE MODERATE /HPF; EPITHELIAL CELLS,URINE MODERATE /LPF; RBC,URINE 0-5 /HPF (0-5)
== END 2019-02-20 00:30 | disposition home or self-care (01) ==
LOC: ER 21:04
DX: R30.0 Dysuria (principal); N30.90 Cystitis, unspecified without hematuria; K21.9 Gastro-esophageal reflux disease without esophagitis; E03.9 Hypothyroidism, unspecified; Z98.84 Bariatric surgery status
CPT/HCPCS: 81001; 99282

== ENCOUNTER 2022-01-10 06:43 | Inpatient (IN) | payer OTHER ==
[2022-01-05 16:08] LABS: BASOPHILS # (AUTO) 0.1 (0.0-0.1); BASOPHILS % 0.7 % (0.0-1.0); EOSINOPHILS # (AUTO) 0.2 (0.0-0.4); EOSINOPHILS % 2.7 % (0.0-6.0); HEMATOCRIT 37.4 % (34.2-44.1); HEMOGLOBIN 11.1 g/dL (12.0-16.0); LYMPHOCYTES # (AUTO) 2.2 (1.0-3.2); LYMPHOCYTES % 30.4 % (18.0-39.1); MEAN CORPUSCULAR HEMOGLOBIN 24.5 pg (28-32); MEAN CORPUSCULAR HGB CONC 29.7 g/dL (31-35); MEAN CORPUSCULAR VOLUME 82.6 fL (81-99); MONOCYTES # (AUTO) 0.4 (0.2-0.8); NEUTROPHILS # (AUTO) 4.4 (2.1-6.9); NEUTROPHILS % 60.1 % (38.7-80.0); PLATELET COUNT 258 x10e3/uL (140-360); RED BLOOD COUNT 4.53 x10e6/uL (3.6-5.1); RED CELL DISTRIBUTION WIDTH 14.7 % (11.7-14.4)
[~2022-01-10 06:43] MED LIST changes: +FOLIC ACID PO; +IRON PO; +LEVOTHYROXINE100 MC1 PO; +PRENATAL VITAMINS PO
[2022-01-10] MEDS ORDERED: TYLENOL EXTRA500 MG PO (08:20)
[2022-01-10 08:49] LABS: ALBUMIN 3.7 g/dL (3.5-5.0); ALBUMIN/GLOBULIN RATIO 1.1 (0.8-2.0); ANION GAP 15.4 mmol/L (8-16); CALCIUM 8.8 mg/dL (8.4-10.2); CREATININE, SERUM 0.65 mg/dL (0.57-1.11); POTASSIUM 3.4 mmol/L (3.5-5.1)
[2022-01-10] MEDS ORDERED: ONDANSETRON HCL INJ 2MG/ML 2ML 2 MG/ML VIAL IV PRN (11:30)
[2022-01-10] MEDS ORDERED: HYDROMORPHONE 1MG/1ML INJ IV PRN (11:30)
[2022-01-10] MEDS ORDERED: FENTANYL CITRATE/PF 100MCG/2 ML INJ ONE ×2 (11:44→13:31)
[2022-01-10] MEDS ORDERED: DIPHENHYDRAMINE HCL INJ 50 MG/ML VIAL ONE (11:52)
[2022-01-10] MEDS ORDERED: Morphine 10mg syringe 10 MG/ML INJ ONE (13:31)
[2022-01-10] MEDS ORDERED: ACETAMINOPHEN 1000 MG/100 ML 100 ML IV ONE (15:07)
[2022-01-10 19:31] VITALS: BP 121/69
[2022-01-10 20:00] VITALS: BP 123/64
[2022-01-10] MEDS: ENOXAPARIN SOD INJ 40 MG/0.4 ML SYR SC SCH (20:49)
[2022-01-10] MEDS: LACTATED RINGER'S 1,000 ML INJ SCH (20:49)
[2022-01-10] MEDS: ACETAMINOPHEN 325 MG TAB PO PRN (22:20)
[2022-01-11 00:45] VITALS: BP 111/75
[2022-01-11 05:00] VITALS: BP 109/78
[2022-01-11 05:17] LABS: BASOPHILS % 0.5 % (0.0-1.0); EOSINOPHILS % 0.2 % (0.0-6.0); HEMATOCRIT 32.5 % (34.2-44.1); HEMOGLOBIN 9.8 g/dL (12.0-16.0); LYMPHOCYTES % 23.5 % (18.0-39.1); MEAN CORPUSCULAR HEMOGLOBIN 24.7 pg (28-32); MEAN CORPUSCULAR HGB CONC 30.2 g/dL (31-35); MEAN CORPUSCULAR VOLUME 81.9 fL (81-99); MONOCYTES # (AUTO) 0.7 (0.2-0.8); MONOCYTES % 7.9 % (4.4-11.3); NEUTROPHILS # (AUTO) 5.7 (2.1-6.9); NEUTROPHILS % 67.7 % (38.7-80.0); PLATELET COUNT 212 x10e3/uL (140-360); RED BLOOD COUNT 3.97 x10e6/uL (3.6-5.1); RED CELL DISTRIBUTION WIDTH 14.9 % (11.7-14.4)
[2022-01-11 05:36] LABS: ANION GAP 11.9 mmol/L (8-16); CALCIUM 8.1 mg/dL (8.4-10.2); CREATININE, SERUM 0.55 mg/dL (0.57-1.11); POTASSIUM 3.9 mmol/L (3.5-5.1)
[2022-01-11] MEDS: LEVOTHYROXINE SODIUM 100 MCG TAB PO SCH (05:37)
[2022-01-11] MEDS: LACTATED RINGER'S 1,000 ML INJ SCH ×3 (05:37→16:19)
[2022-01-11] MEDS: PANTOPRAZOLE SOD 40 MG TABEC PO SCH (09:00)
[2022-01-11 09:47] VITALS: BP 134/76
[2022-01-11 12:44] VITALS: BP 122/64
[2022-01-11] MEDS: ACETAMINOPHEN 325 MG TAB PO PRN (14:25)
[2022-01-11 16:39] VITALS: BP 109/65
[2022-01-11] MEDS: ENOXAPARIN SOD INJ 40 MG/0.4 ML SYR SC SCH (17:00)
[2022-01-11 20:00] VITALS: BP 110/81
[2022-01-12] VITALS: BP 120/56
[2022-01-12] MEDS: ACETAMINOPHEN 325 MG TAB PO PRN ×2 (00:20→06:01)
[2022-01-12 04:00] VITALS: BP 117/58
[2022-01-12] MEDS: LEVOTHYROXINE SODIUM 100 MCG TAB PO SCH (05:42)
[2022-01-12 08:46] VITALS: BP 124/85
[2022-01-12] MEDS: PANTOPRAZOLE SOD 40 MG TABEC PO SCH (09:57)
[2022-01-12] MEDS ORDERED: SEVOFLURANE INHAL SOLN 250 ML PEN BTL INH ONE (11:22)
[2022-01-12] MEDS ORDERED: ONDANSETRON HCL INJ 2MG/ML 2ML 2 MG/ML VIAL IV ONE (11:22)
[2022-01-12] MEDS ORDERED: DEXAMETHASONE SOD PHOS INJ 4 MG/ML SDV IV ONE (11:22)
[2022-01-12] MEDS ORDERED: NEOSTIGMINE 1 MG/ML 10ML VIAL IV ONE (11:22)
[2022-01-12] MEDS ORDERED: POVIDONE IODINE 0.05% 0.05 % ML PO ONE (11:22)
[2022-01-12] MEDS ORDERED: LIDOCAINE HCL 2% LOCAL INJ 5 ML SDV VIAL INJ ONE (11:22)
[2022-01-12] MEDS ORDERED: PROPOFOL IV EMULSION 10 MG/ML 20 ML VIAL IV ONE (11:22)
[2022-01-12] MEDS ORDERED: METOCLOPRAMIDE HCL 10 MG/2ML VIAL IV ONE (11:22)
[2022-01-12] MEDS ORDERED: GLYCOPYRROLATE INJ 0.2 MG/ML VIAL IV ONE (11:22)
[2022-01-12 11:30] VITALS: BP 108/70
== END 2022-01-12 11:23 | disposition home or self-care (01) | DRG 354 ==
LOC: OR 06:43 → MERGE 09:00 → PACU V 11:35 → MED/SURG2 18:05
PROVIDERS: ADMIT Surgery; ATTEND Surgery
PROC: 0DQV0ZZ Repair Mesentery, Open Approach (ICD-10-PCS; 2022-01-10)
PROC: 0WQF0ZZ Repair Abdominal Wall, Open Approach (ICD-10-PCS; principal; 2022-01-10 09:15)
DX: K43.0 Incisional hernia with obstruction, without gangrene (principal); K95.89 Other complications of other bariatric procedure; K46.0 Unspecified abdominal hernia with obstruction, without gangrene; D64.9 Anemia, unspecified; E03.9 Hypothyroidism, unspecified; Z98.84 Bariatric surgery status; Z82.49 Family history of ischemic heart disease and other diseases of the circulatory system; Z83.3 Family history of diabetes mellitus; Z84.89 Family history of other specified conditions; Z90.49 Acquired absence of other specified parts of digestive tract; Z91.040 Latex allergy status
CPT/HCPCS: 0223U; 36415; 80048; 80053; 81025; 82948; 84443; 85025; 86850; 86900; 93005; J0690; J1100; J1200; J1650; J2001; J2270; J2405; J2710; J2765; J3010; J7050; J7121